=== PATIENT | male | born 1980 | race Caucasian/White ===

== ENCOUNTER 2021-06-30 03:18 | Inpatient (IN) | payer OTHER ==
[~2021-06-30] VITALS: Ht 180.3 cm; Wt 101.2 kg
[2021-06-30] VITALS (17 sets, daily range): BP systolic 86–143; BP diastolic 50–90
[2021-06-30] MEDS ORDERED: ACETYLCYSTEINE INJ 15 GM in IV DEXTROSE 5% 200 ML IV ONE (04:00)
[2021-06-30] MEDS ORDERED: IV NORMAL SALINE 1000ML BAG 1,000 ML IV SCH (04:00)
--- NOTE | 2021-06-30 04:15 | PHYS DOC ---
Past Medical History Past Surgical History: No Surgical History General Adult EDM: Chief Complaint: OVERDOSE HPI: HPI: Patient is a 40 year old male from correction presents to the ER after overdosing on Tylenol. Patient took approximately 420 tablets of Tylenol. Patient altered. Review of Systems: Review of Systems: Constitutional: Denies fever or chills. [] Eyes: Denies change in visual acuity. [] HENT: Denies nasal congestion or sore throat. [] Respiratory: Denies cough or shortness of breath. [] Cardiovascular: Denies chest pain or edema. [] GI: Denies abdominal pain, nausea, vomiting, bloody stools or diarrhea. [] : Denies dysuria. [] Musculoskeletal: Denies back pain or joint pain. [] Integument: Denies rash. [] Neurologic: Denies headache, focal weakness or sensory changes. [] Endocrine: Denies polyuria or polydipsia. [] Lymphatic: Denies swollen glands. [] Psychiatric: Suicide attempt denies depression or anxiety. [] Heart Score: C/O Chest Pain: No Risk Factors: Risk Factors: DM, Current or recent (<one month) smoker, HTN, HLP, family history of CAD, obesity. Risk Scores: Score 0 - 3: 2.5% MACE over next 6 weeks - Discharge Home Score 4 - 6: 20.3% MACE over next 6 weeks - Admit for Clinical Observation Score 7 - 10: 72.7% MACE over next 6 weeks - Early Invasive Strategies Current Medications: Current Medications Medications (Trade) Dose Ordered Sig/Danielito Start Time Stop Time Status Last Admin Dose Admin Acetylcysteine 15 gm/Dextrose 275 ml @ 200 mls/hr 1X ONCE 06/30/21 04:00 06/30/21 05:22 06/30/21 03:52 200 MLS/HR Etomidate (Amidate) 30 mg 1X ONCE 06/30/21 04:15 06/30/21 04:16 UNV Fentanyl Citrate (Fentanyl 2ml Vial) 100 mcg 1X ONCE 06/30/21 04:15 06/30/21 04:16 UNV Propofol (Diprivan) 200 mg 1X ONCE 06/30/21 04:15 06/30/21 04:16 UNV Rocuronium [place] (Zemuron) 100 mg 1X ONCE 06/30/21 04:15 06/30/21 04:16 UNV Sodium Chloride 1,000 ml @ 1,000 mls/hr Q1H 06/30/21 04:00 06/30/21 04:59 Allergies: Allergies: Allergies Coded Allergies Type Severity Reaction Last Updated Verified No Known Drug Allergies 06/30/21 No Physical Exam: PE: Constitutional: Well developed, well nourished, no acute distress, patient was lethargic HENT: Normocephalic, atraumatic, bilateral external ears normal, oropharynx moist, no oral exudates, nose normal. [] Eyes: PERRLA, EOMI, conjunctiva normal, no discharge. [] Neck: Normal range of motion, no tenderness, supple, no stridor. [] Cardiovascular:Heart rate regular rhythm, no murmur [] Lungs & Thorax: Bilateral breath sounds clear to auscultation [] Abdomen: Bowel sounds normal, soft, no tenderness, no masses, no pulsatile masses. [] Skin: Warm, dry, no erythema, no rash. [] Back: No tenderness, no CVA tenderness. [] Extremities: No tenderness, no cyanosis, no clubbing, ROM intact, no edema. [] Neurologic: Alert and oriented X 3, normal motor function, normal sensory function, no focal deficits noted. [] Psychologic: Affect normal, judgement normal, mood normal. [] Current Patient Data: Vital Signs: Vital Signs Date Time Temp Pulse Resp B/P (MAP) Pulse Ox O2 Delivery O2 Flow Rate FiO2 06/30/21 03:48 98.5 95 16 141/76 (97) 94 Room Air 98.5 EKG: EKG: [] Radiology/Procedures: Radiology/Procedures: [] Course & Med Decision Making: Course & Med Decision Making Pertinent Labs and Imaging studies reviewed. (See chart for details) [] Patient was interfering in his own care combative and noncompliant. Patient was placed on ventilator due to his critical condition. NAC was started due to the volume of Tylenol taken. Poison control on board Critical care time is 85-minute Luc Disclaimer: Luc Disclaimer: This electronic medical record was generated, in whole or in part, using a voice recognition dictation system. Intubation Procedure Intub Indication: Respiratory failure Consent: Unable to give consent due to emergent nature. Medications Used: see nursing note Procedure: The patient was placed in the appropriate position. Intubation was performed with a kaleidoscope] 8 0 endotracheal tube. 24 at the lip. Initial confirmation of placement included bilateral breath sounds, tube fogging, adequate chest rise, adequate pulse oximetry reading. A chest x-ray to verify correct placement of the tube showed appropriate tube position. The patient tolerated the procedure well. Complications: none. 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
[2021-06-30] MEDS ORDERED: ROCURONIUM 50 MG/5 ML VIAL. ONE (04:30)
[2021-06-30] MEDS ORDERED: fentaNYL PF VIAL 100 MCG/2 ML VIAL IVP ONE (04:30)
[2021-06-30] MEDS ORDERED: ROCURONIUM 50 MG/5 ML VIAL. IV ONE (04:30)
[2021-06-30] MEDS ORDERED: ETOMIDATE 20 MG/10 ML VIAL. IV ONE ×2 (04:30)
[2021-06-30] MEDS ORDERED: PROPOFOL 10 MG/ML (20ML) VIAL. IV ONE (04:30)
[2021-06-30] MEDS: PROPOFOL 100 ML IV PRN ×4 (04:52→22:17)
[2021-06-30 05:08] LABS: BASE EXCESS ABG -10 mmol/L (-3-3); HCO3 ABG 17 mmol/L (21-28); PCO2 ABG 39 mmHg (35-46); PO2 ABG 136 mmHg (75-108); SAT O2 ABG 98 % (92-99)
[2021-06-30 05:10] LABS: BARBITURATES NEG (NEG); BENZODIAZEPINES NEG (NEG); CANNABINOIDS NEG (NEG); COCAINE NEG (NEG); METHADONE NEG (NEG); OPIATES NEG (NEG); PHENCYCLIDINE NEG (NEG)
[2021-06-30 05:13] LABS: AMPHETAMINE/METHAMPHETAMINE POS (NEG)
[2021-06-30 05:20] LABS: PROTHROMBIN TIME PATIENT 17.3 SEC (11.7-14.0)
[2021-06-30 05:26] LABS: CALCIUM 7.6 mg/dL (8.5-10.1); CREATININE 1.5 mg/dL (0.7-1.3); GFR 51.3; POTASSIUM 3.9 mmol/L (3.5-5.1)
[2021-06-30 05:27] LABS: SALIC 1.2 mg/dL (2.8-20.0)
--- NOTE | 2021-06-30 05:27 | RAD ---
Study: XR CHEST 1V Indication: Tube placement. Comparison: None. Findings: Endotracheal tube tip is at the ayanna and is deviated towards the right mainstem bronchus. Enteric t ube extends into the stomach with the tip and sidehole not included in the [id number]. No confluent infiltrate, pleural effusion or pneumothorax. The cardiomediastinal silhouette is within normal limits for size. Impression: 1. Endotracheal tube tip is at the ayanna. Retraction is recommended by a few centimeters. 2. Enteric tube extension into the stomach. 3. No acute radiographic abnormality of the chest. Electronically signed by: KAYODE JONES MD (06/30/2021 5:24 AM) [facility]
[2021-06-30 05:30] LABS: BACTERIA,URINE 0 /HPF (0-FEW); RBC,URINE 0 /HPF (0-2)
[2021-06-30] MEDS ORDERED: ACETYLCYSTEINE INJ 10 GM in IV DEXTROSE 5% 1,000 ML IV ONE (05:30)
[2021-06-30 05:32] LABS: ALBUMIN 3.4 g/dL (3.4-5.0); DIRECT BILIRUBIN 0.1 mg/dL (0.0-0.2); TOTAL BILIRUBIN 0.3 mg/dL (0.2-1.0); TOTAL PROTEIN 6.4 g/dL (6.4-8.2)
[2021-06-30 05:56] LABS: ETHANOL < 10 mg/dL (0-10)
[2021-06-30] MEDS ORDERED: SODIUM BICARB ADULT 8.4% 50 MEQ/50 ML DISP.SYRIN. IV ONE ×3 (06:00→09:45)
[2021-06-30 06:13] LABS: FIO2 ABG 50
[2021-06-30 08:24] LABS: BASE EXCESS COOX -14 mmol/L (-3-3); HCO3 COOX 13 mmol/L (21-28); OXYHEMOGLOBIN 97.6 %; PCO2 COOX 32 mmHg (35-46); PO2 COOX 161 mmHg (75-108); SAT O2 COOX 99 % (92-99)
--- NOTE | 2021-06-30 09:00 | PDOC1 ---
History and Physical Date of Admission Date of Admission DATE: 06/30/21 TIME: 08:22 Identification/Chief Complaint Chief Complaint Overdose Source Source: Patient History of Present Illness History of Present Illness Mr Alarcon is a 40yo male w/ PMHx chronic osteoarthritis pain, seizure, borderline personality disorder who is an inmate brought from retirement for u nresponsiveness and concern for overdose. History obtained from ED paperwork and from [place] [employer] officers. He was found on morning wellness check this morning prior to 0400 laying in a pile of vomit with suspicion patient had taken #420 of 325 mg of acetaminophen. He has been incarcerated since 2005 per corrections officers. Labs at 0449 NA 142, K3 point delayed, BUN 14 CR 1.5, anion gap 22, glucose 243, lactic acid 5.3, calcium 7.6, bilirubin 0.3, AST 23, ALT 45, alkaline phosphatas e 52, albumin 3.4, acetaminophen level 383.8, salicylates 1.2, urine drug screen positive for amphetamines, urinalysis bland with glucosuria and ketonuria. Patient was notably somnolent, drooling with brown emesis, confused in ED, barley answering to his name, and was assessed as not protecting his airway ED physician elected to intubate patient. Chest radiograph with ET tube near ayanna gastric tube overlying gastric bubble below the diaphragm. No other abnormalities on anahy unable to obtain due to his sedated on ventilator st radiograph on my interpretation. Tylenol overdose ABG 7.245/38.9/136.4 Repeat ABG 7.221/31.5/161 on AC mode 40 breaths/min per tidal volume 450 PEEP of 5 FiO2 40% Past Medical History Cardiovascular: No pertinent hx Past Surgical History Past Surgical History: No pertinent history Family History Family History reviewed with [employer] officers Family History: Family History Unknown Social History Smoke: No ALCOHOL: none Drugs: None Current Problem List Problem List Problems Medical Problems: (1) Acetaminophen overdose Status: Acute Current Medications Current Medications Current Medications Acetylcysteine 15 gm/Dextrose 275 ml @ 200 mls/hr 1X ONCE IV Last administered on 06/30/21at 03:52; Start 06/30/21 at 04:00; Stop 06/30/21 at 05:22; Status DC Sodium Chloride 1,000 ml @ 1,000 mls/hr Q1H IV ; Start 06/30/21 at 04:00; Stop 06/30/21 at 04:59; Status DC Rocuronium [place] (Zemuron) 100 mg 1X ONCE IV ; Start 06/30/21 at 04:30; Stop 06/30/21 at 04:31; Status DC Etomidate (Amidate) 30 mg 1X ONCE IV ; Start 06/30/21 at 04:30; Stop 06/30/21 at 04:31; Status DC Propofol (Diprivan) 200 mg 1X ONCE IV ; Start 06/30/21 at 04:30; Stop 06/30/21 at 04:31; Status DC Fentanyl Citrate (Fentanyl 2ml Vial) 100 mcg 1X ONCE IVP ; Start 06/30/21 at 04:30; Stop 06/30/21 at 04:31; Status DC Propofol 100 ml @ 3.135 mls/ hr CONT PRN IV PER PROTOCOL Last administered on 06/30/21at 04:52; Start 06/30/21 at 04:30 Acetylcysteine 10 gm/Dextrose 1,050 ml @ 65.625 mls/ hr 1X ONCE IV Last administered on 06/30/21at 05:22; Start 06/30/21 at 05:30; Stop 06/30/21 at 21:29 Sodium Bicarbonate (Sodium Bicarb Adult 8.4% Syr) 50 meq 1X ONCE IV ; Start 06/30/21 at 06:00; Stop 06/30/21 at 06:01; Status DC Allergies Allergies: Coded Allergies: No Known Drug Allergies (Unverified , 06/30/21) ROS Review of System Unable to obtain complete ROS due to sedated on ventilator Physical Exam General: Other (Sedated on ventilator) HEENT: Atraumatic, EOMI, Mucous membr. moist/pink, Other (ET and OG tube in place. Pupils pinpoint) Lungs: Other (Ventilatory breath sounds) Heart: S1S2, RRR, no thrills, no rubs, no gallops, no murmurs Abdomen: Normal bowel sounds, Soft, No tenderness, No hepatosplenomegaly, No masses Extremities: No clubbing, No cyanosis, No edema, Normal pulses, No tenderness/swelling Skin: No rashes, No breakdown, No significant lesion Neuro: Reflexes 2+ Psych/Mental Status: Other (Unresponsive) Vitals Vitals Vital Signs Date Time Temp Pulse Resp B/P (MAP) Pulse Ox O2 Delivery O2 Flow Rate FiO2 06/30/21 08:18 99 Ventilator 06/30/21 07:06 88 06/30/21 06:06 16 06/30/21 04:51 98.4 98.4 06/30/21 03:48 141/76 (97) Labs Labs Laboratory Tests Test 06/30/21 04:49 06/30/21 04:55 06/30/21 05:06 Prothrombin Time 17.3 SEC (11.7-14.0) Prothromb Time International Ratio 1.5 (0.8-1.1) Activated Partial Thromboplast Time 25 SEC (24-38) Sodium Level 142 mmol/L (136-145) Potassium Level 3.9 mmol/L (3.5-5.1) Chloride Level 101 mmol/L (98-107) Carbon Dioxide Level 19 mmol/L (21-32) Anion Gap 22 (6-14) Blood Urea Nitrogen 14 mg/dL (8-26) Creatinine 1.5 mg/dL (0.7-1.3) Estimated GFR (Cockcroft-Gault) 51.3 Glucose Level 243 mg/dL (70-99) Lactic Acid Level 5.3 mmol/L (0.4-2.0) Calcium Level 7.6 mg/dL (8.5-10.1) Total Bilirubin 0.3 mg/dL (0.2-1.0) Direct Bilirubin 0.1 mg/dL (0.0-0.2) Aspartate Amino Transf (AST/SGOT) 23 U/L (15-37) Alanine Aminotransferase (ALT/SGPT) 45 U/L (16-63) Alkaline Phosphatase 52 U/L (46-116) Total Protein 6.4 g/dL (6.4-8.2) Albumin 3.4 g/dL (3.4-5.0) Salicylates Level 1.2 mg/dL (2.8-20.0) Salicylate Last Dose Date Unknown Salicylate Last Dose Time Unknown Acetaminophen Level 383.80 mcg/ml (10-30) Acetaminophen Last Dose Date Unknown Acetaminophen Last Dose Time Unknown Ethyl Alcohol Level < 10 mg/dL (0-10) Urine Collection Type Unknown Urine Color (Auto) Colorless Urine Turbidity Clear Urine pH (Auto) 5.5 (<5.0-8.0) Urine Specific [place] 1.015 (1.000-1.030) Urine Protein (Auto) Negative mg/dL (Negative) Urine Glucose (Auto)(UA) 200 mg/dL (Negative) Urine Ketones (Auto) >150 mg/dL (Negative) Urine Blood (Auto) Negative (Negative) Urine Nitrite (Auto) Negative (Negative) Urine Bilirubin (Auto) Negative (Negative) Urine Urobilinogen (Auto) Normal mg/dL (Normal) Urine Leukocyte Esterase (Auto) Negative (Negative) Urine RBC 0 /HPF (0-2) Urine WBC 1-4 /HPF (0-4) Urine Squamous Epithelial Cells Mod /LPF Urine Renal Epithelial Cells Occ /LPF Urine Bacteria 0 /HPF (0-FEW) Urine Mucus Slight /LPF Urine Opiates Screen Neg (NEG) Urine Methadone Screen Neg (NEG) Urine Barbiturates Neg (NEG) Urine Phencyclidine Screen Neg (NEG) Urine Amphetamine/Methamphetamine Pos (NEG) Urine Benzodiazepines Screen Neg (NEG) Urine Cocaine Screen Neg (NEG) Urine Cannabinoids Screen Neg (NEG) Urine Ethyl Alcohol Neg (NEG) O2 Saturation 98 % (92-99) Arterial Blood pH 7.25 (7.35-7.45) Arterial Blood pCO2 at Patient Temp 39 mmHg (35-46) Arterial Blood pO2 at Patient Temp 136 mmHg (75-108) Arterial Blood HCO3 17 mmol/L (21-28) Arterial Blood Base Excess -10 mmol/L (-3-3) FiO2 50 Laboratory Tests Test 06/30/21 04:49 06/30/21 04:55 06/30/21 05:06 Prothrombin Time 17.3 SEC (11.7-14.0) Prothromb Time International Ratio 1.5 (0.8-1.1) Activated Partial Thromboplast Time 25 SEC (24-38) Sodium Level 142 mmol/L (136-145) Potassium Level 3.9 mmol/L (3.5-5.1) Chloride Level 101 mmol/L (98-107) Carbon Dioxide Level 19 mmol/L (21-32) Anion Gap 22 (6-14) Blood Urea Nitrogen 14 mg/dL (8-26) Creatinine 1.5 mg/dL (0.7-1.3) Estimated GFR (Cockcroft-Gault) 51.3 Glucose Level 243 mg/dL (70-99) Lactic Acid Level 5.3 mmol/L (0.4-2.0) Calcium Level 7.6 mg/dL (8.5-10.1) Total Bilirubin 0.3 mg/dL (0.2-1.0) Direct Bilirubin 0.1 mg/dL (0.0-0.2) Aspartate Amino Transf (AST/SGOT) 23 U/L (15-37) Alanine Aminotransferase (ALT/SGPT) 45 U/L (16-63) Alkaline Phosphatase 52 U/L (46-116) Total Protein 6.4 g/dL (6.4-8.2) Albumin 3.4 g/dL (3.4-5.0) Salicylates Level 1.2 mg/dL (2.8-20.0) Salicylate Last Dose Date Unknown Salicylate Last Dose Time Unknown Acetaminophen Level 383.80 mcg/ml (10-30) Acetaminophen Last Dose Date Unknown Acetaminophen Last Dose Time Unknown Ethyl Alcohol Level < 10 mg/dL (0-10) Urine Collection Type Unknown Urine Color (Auto) Colorless Urine Turbidity Clear Urine pH (Auto) 5.5 (<5.0-8.0) Urine Specific [place] 1.015 (1.000-1.030) Urine Protein (Auto) Negative mg/dL (Negative) Urine Glucose (Auto)(UA) 200 mg/dL (Negative) Urine Ketones (Auto) >150 mg/dL (Negative) Urine Blood (Auto) Negative (Negative) Urine Nitrite (Auto) Negative (Negative) Urine Bilirubin (Auto) Negative (Negative) Urine Urobilinogen (Auto) Normal mg/dL (Normal) Urine Leukocyte Esterase (Auto) Negative (Negative) Urine RBC 0 /HPF (0-2) Urine WBC 1-4 /HPF (0-4) Urine Squamous Epithelial Cells Mod /LPF Urine Renal Epithelial Cells Occ /LPF Urine Bacteria 0 /HPF (0-FEW) Urine Mucus Slight /LPF Urine Opiates Screen Neg (NEG) Urine Methadone Screen Neg (NEG) Urine Barbiturates Neg (NEG) Urine Phencyclidine Screen Neg (NEG) Urine Amphetamine/Methamphetamine Pos (NEG) Urine Benzodiazepines Screen Neg (NEG) Urine Cocaine Screen Neg (NEG) Urine Cannabinoids Screen Neg (NEG) Urine Ethyl Alcohol Neg (NEG) O2 Saturation 98 % (92-99) Arterial Blood pH 7.25 (7.35-7.45) Arterial Blood pCO2 at Patient Temp 39 mmHg (35-46) Arterial Blood pO2 at Patient Temp 136 mmHg (75-108) Arterial Blood HCO3 17 mmol/L (21-28) Arterial Blood Base Excess -10 mmol/L (-3-3) FiO2 50 Images Images Chest radiograph: Endotracheal tube tip is at the ayanna and is deviated towards the right mainstem bronchus. Enteric tube extends into the stomach with the tip and si dehole not included in the [id number]. No confluent infiltrate, pleural effusion or pneumothorax. The cardiomediastinal silhouette is within normal limits for size. Impression: 1. Endotracheal tube tip is at the ayanna. Retraction is recommended by a few centimeters. 2. Enteric tube extension into the stomach. 3. No acute radiographic abnormality of the chest. VTE Prophylaxis Ordered VTE Prophylaxis Devices: No VTE Pharmacological Prophylaxi: Yes Assessment/Plan Assessment/Plan Acute encephalopathy - metabolic, likely due to medication overdose, possibly also with amphetamine toxicity Acetaminophen overdose -unclear if intentional or not. On N-acetylcysteine 2 bag protocol (200 mg/kg mag 1 and 6.25 mg/kg hourly for 16 hours) given within 8 hours will trend every 4 to 6 hours labs. Poison control recommends addition of fomepizole as well Metabolic acidosis - likely lactic acid related with some acute acetaminophen poisoning, will trend. Bicarb per ED and pulmonology Chronic osteoarthritis pain -if acetaminophen negative and ibuprofen are given to the future would recommend to dose pill packs daily. Seizures - per retirement, resolved TRISTIN - no renal dysfunction, likely vasomotor nephropathy Lactic acidosis - likely related to acetaminophen OD, will trend Amphetamine positive - unclear if intoxicated Borderline personality disorder -not on meds Hyperglycemia - check A1c, no DM history FEN - NPO, OGT PPX - heparin FULL CODE Dispo - ICU cc time 37 min Justifications for Admission Other Justification PILAR CONWAY MD Jun 30, 2021 09:00
--- NOTE | 2021-06-30 09:39 | PDOC2 ---
GI CONSULT Date of Service: DATE: 06/30/21 TIME: 09:39 Reason For Consult: acetaminophen overdose HPI: HPI: 40 y/o inmate brought to ER found this morning in pile of emesis - concern he had taken 420 acetaminophen pills. Confused in ER - now intubated and sedated. Acetaminophen level 383, normal LFT, INR 1.5. Started on Mucomyst, also fomepizole. PMH: PMH: per chart: chronic osteoarthritis pain, seizure, borderline personality disorder FH: Family History: Other (unable to obtain) Social History: Drugs: Crystal meth (tox screen +amphetamines) ROS: unable to obtain Vitals: Vitals: Vital Signs Date Time Temp Pulse Resp B/P (MAP) Pulse Ox O2 Delivery O2 Flow Rate FiO2 06/30/21 09:00 83 20 100/50 (67) Ventilator 06/30/21 08:59 99 06/30/21 07:40 94.7 94.7 Labs: Labs: Laboratory Tests Test 06/30/21 04:49 06/30/21 04:55 06/30/21 05:06 06/30/21 08:23 Prothrombin Time 17.3 SEC (11.7-14.0) Prothromb Time International Ratio 1.5 (0.8-1.1) Activated Partial Thromboplast Time 25 SEC (24-38) Sodium Level 142 mmol/L (136-145) Potassium Level 3.9 mmol/L (3.5-5.1) Chloride Level 101 mmol/L (98-107) Carbon Dioxide Level 19 mmol/L (21-32) Anion Gap 22 (6-14) Blood Urea Nitrogen 14 mg/dL (8-26) Creatinine 1.5 mg/dL (0.7-1.3) Estimated GFR (Cockcroft-Gault) 51.3 Glucose Level 243 mg/dL (70-99) Lactic Acid Level 5.3 mmol/L (0.4-2.0) Calcium Level 7.6 mg/dL (8.5-10.1) Total Bilirubin 0.3 mg/dL (0.2-1.0) Direct Bilirubin 0.1 mg/dL (0.0-0.2) Aspartate Amino Transf (AST/SGOT) 23 U/L (15-37) Alanine Aminotransferase (ALT/SGPT) 45 U/L (16-63) Alkaline Phosphatase 52 U/L (46-116) Total Protein 6.4 g/dL (6.4-8.2) Albumin 3.4 g/dL (3.4-5.0) Salicylates Level 1.2 mg/dL (2.8-20.0) Salicylate Last Dose Date Unknown Salicylate Last Dose Time Unknown Acetaminophen Level 383.80 mcg/ml (10-30) Acetaminophen Last Dose Date Unknown Acetaminophen Last Dose Time Unknown Ethyl Alcohol Level < 10 mg/dL (0-10) Urine Collection Type Unknown Urine Color (Auto) Colorless Urine Turbidity Clear Urine pH (Auto) 5.5 (<5.0-8.0) Urine Specific [place] 1.015 (1.000-1.030) Urine Protein (Auto) Negative mg/dL (Negative) Urine Glucose (Auto)(UA) 200 mg/dL (Negative) Urine Ketones (Auto) >150 mg/dL (Negative) Urine Blood (Auto) Negative (Negative) Urine Nitrite (Auto) Negative (Negative) Urine Bilirubin (Auto) Negative (Negative) Urine Urobilinogen (Auto) Normal mg/dL (Normal) Urine Leukocyte Esterase (Auto) Negative (Negative) Urine RBC 0 /HPF (0-2) Urine WBC 1-4 /HPF (0-4) Urine Squamous Epithelial Cells Mod /LPF Urine Renal Epithelial Cells Occ /LPF Urine Bacteria 0 /HPF (0-FEW) Urine Mucus Slight /LPF Urine Opiates Screen Neg (NEG) Urine Methadone Screen Neg (NEG) Urine Barbiturates Neg (NEG) Urine Phencyclidine Screen Neg (NEG) Urine Amphetamine/Methamphetamine Pos (NEG) Urine Benzodiazepines Screen Neg (NEG) Urine Cocaine Screen Neg (NEG) Urine Cannabinoids Screen Neg (NEG) Urine Ethyl Alcohol Neg (NEG) O2 Saturation 98 % (92-99) 99 % (92-99) Arterial Blood pH 7.25 (7.35-7.45) 7.22 (7.35-7.45) Arterial Blood pCO2 at Patient Temp 39 mmHg (35-46) 32 mmHg (35-46) Arterial Blood pO2 at Patient Temp 136 mmHg (75-108) 161 mmHg (75-108) Arterial Blood HCO3 17 mmol/L (21-28) 13 mmol/L (21-28) Arterial Blood Base Excess -10 mmol/L (-3-3) -14 mmol/L (-3-3) FiO2 50 40% vent Oxyhemoglobin 97.6 % Methemoglobin 1.0 % (0.0-1.9) Carbon Monoxide, Quantitative 0.3 % (0.0-1.9) Allergies: Coded Allergies: No Known Drug Allergies (Unverified , 06/30/21) Medications: Current Medications Medications (Trade) Dose Ordered Sig/Danielito Route PRN Reason Start Time Stop Time Status Last Admin Dose Admin Acetylcysteine 15 gm/Dextrose 275 ml @ 200 mls/hr 1X ONCE IV 06/30/21 04:00 06/30/21 05:22 DC 06/30/21 03:52 Propofol 100 ml @ 3.135 mls/ hr CONT PRN IV PER PROTOCOL 06/30/21 04:30 06/30/21 04:52 Acetylcysteine 10 gm/Dextrose 1,050 ml @ 65.625 mls/ hr 1X ONCE IV 06/30/21 05:30 06/30/21 21:29 06/30/21 05:22 Imaging: Imaging: CXR 06/30 Impression: 1. Endotracheal tube tip is at the ayanna. Retraction is recommended by a few centimeters. 2. Enteric tube extension into the stomach. 3. No acute radiographic abnormality of the chest. PE: GEN: intubated, guard present HEENT: Atraumatic, PERRL LUNGS: clear/vent HEART: RRR ABD: quiet BS, soft, non-distended EXTREMITY: No edema SKIN: No rashes, no jaundice NEURO/PSYCH: sedated A/P: A/P: Acetaminophen overdose Psych history -- Pt seen this morning w/ Dr. Bolden - agree w/ acetylcysteine, follow LFTs and INR. ERIN VAN Jun 30, 2021 09:39
[2021-06-30] MEDS ORDERED: FOMEPIZOLE IV ONE (10:00)
[2021-06-30] MEDS ORDERED: NORMAL SALINE IV ONE (10:00)
--- NOTE | 2021-06-30 11:18 | CONS ---
DATE OF CONSULTATION: 06/30/2021 PULMONARY CONSULTATION ATTENDING PHYSICIAN: Dr. Finley. REASON FOR CONSULTATION: Respiratory failure. Tylenol overdose. HISTORY OF PRESENT ILLNESS: The patient is a 40-year-old male who has a history of chronic osteoarthritis, seizure and history of borderline personality disorder. He is an inmate at the [facility]. The patient was brought into the hospital after he was noted to have taken 11 packets of 325 mg Tylenol and each pocket containing 5 tablets. The patient was started to have emesis. He was taken to the Emergency Room. He was somnolent. He had drooling with brown emesis. He was confused. He was barely answering to his name. He was then very agitated and was thought to intubate him to protect his airway. The patient's chest x-ray reviewed. No definite infiltrate seen. His endotracheal tube was at the opening of the right main stem bronchus. His arterial blood gases were reviewed. Latest showed a pH of 7.22, pCO2 of 32 and a pO2 of 161 with bicarbonate of 13. His Tylenol level was 383.8. He was started on N-acetylcysteine and protocol is being followed. He was also positive for meth as well. The patient's liver function test on admission were within normal limits. Lactic acid was 5.3. He is currently intubated and sedated. I have been asked to see him for further evaluation. PAST MEDICAL HISTORY: Significant for borderline personality disorder, osteoarthritis, seizure. PAST SURGICAL HISTORY: None. ALLERGIES: None. MEDICATIONS: Reviewed as listed in the [facility] including fomepizole and N-acetylcysteine. REVIEW OF SYSTEMS: Unable to obtain as he is on the ventilator. SOCIAL HISTORY: He is an inmate. PHYSICAL EXAMINATION: VITAL SIGNS: Reviewed. Blood pressure 106 systolic. Pulse ox 99. He was hypothermic on arrival, now 94.7 core temperature. NECK: Supple. LUNGS: Clear breath sounds. CARDIOVASCULAR: With a regular rate. ABDOMEN: Soft. EXTREMITIES: With no pitting edema. LABORATORY DATA: Reviewed. INR 1.5. Urine drug screen as discussed above. BUN is 14, creatinine 1.5. Lactic acid 5.3. IMPRESSION: 1. Acute respiratory failure secondary to acetaminophen overdose. He was also positive for meth. 2. Acute toxic encephalopathy. 3. Metabolic acidosis related to acetaminophen overdose. 4. Needs to closely follow up liver function tests, rule out hepatic failure. 5. Acute kidney injury. 6. Lactic acidosis. 7. Mildly increased INR of 1.5. Needs to watch for any worsening coagulopathy related to acetaminophen overdose. 8. Abnormal chest x-ray with endotracheal tube at the opening of the right main stem bronchus. I would recommend to pull back 3 cm. RECOMMENDATIONS: 1. Discussed with RN and RT. We will continue with present assist control mode. 2. Two amps of bicarbonate have been ordered. 3. Monitor liver function test and bicarbonate level closely. 4. Monitor INR and rule out any worsening coagulopathy. 5. Continue N-acetylcysteine per protocol. 6. Follow levels. 7. Fomepizole. 8. SCDs for DVT prophylaxis due to INR being already elevated. 9. Followup lactic acid level. 10. Discussed with RN. Discussed with Dr. Finley. Chart reviewed, imaging studies reviewed. Total critical care time [address]: Cate TID: [id number]
[2021-06-30 13:11] LABS: ALBUMIN 3.5 g/dL (3.4-5.0); ALBUMIN/GLOBULIN RATIO 1.2 (1.0-1.7); CALCIUM 8.2 mg/dL (8.5-10.1); CREATININE 1.7 mg/dL (0.7-1.3); GFR 44.4; POTASSIUM 4.3 mmol/L (3.5-5.1); TOTAL BILIRUBIN 0.7 mg/dL (0.2-1.0); TOTAL PROTEIN 6.4 g/dL (6.4-8.2)
[2021-06-30 13:14] LABS: ACETAMIN 249.73 mcg/ml (10-30)
--- NOTE | 2021-06-30 14:52 | NUR ---
Etomidate 30mg and Rocuronium 100mg given in ER for intubation were charged to patient by pharmacy.
[2021-06-30] MEDS: ACETYLCYSTEINE IV SCH (17:44)
[2021-06-30] MEDS: DEXTROSE 5% IV SCH (17:44)
[2021-06-30 18:32] LABS: ALBUMIN 3.6 g/dL (3.4-5.0); ALBUMIN/GLOBULIN RATIO 1.2 (1.0-1.7); CALCIUM 8.2 mg/dL (8.5-10.1); CREATININE 2.1 mg/dL (0.7-1.3); GFR 34.8; POTASSIUM 4.3 mmol/L (3.5-5.1); TOTAL BILIRUBIN 0.6 mg/dL (0.2-1.0); TOTAL PROTEIN 6.7 g/dL (6.4-8.2)
[2021-06-30 18:55] LABS: ACETAMIN 180.74 mcg/ml (10-30)
[2021-06-30] MEDS: NORMAL SALINE IV SCH (22:17)
[2021-06-30] MEDS: FOMEPIZOLE IV SCH (22:17)
[2021-07-01] VITALS (23 sets, daily range): BP systolic 111–164; BP diastolic 68–94
[2021-07-01 00:35] LABS: ALBUMIN 3.7 g/dL (3.4-5.0); ALBUMIN/GLOBULIN RATIO 1.1 (1.0-1.7); CREATININE 3.1 mg/dL (0.7-1.3); GFR 22.2; TOTAL BILIRUBIN 0.4 mg/dL (0.2-1.0); TOTAL PROTEIN 7.2 g/dL (6.4-8.2)
[2021-07-01 00:36] LABS: ACETAMIN 104.2 mcg/ml (10-30)
[2021-07-01] MEDS: PROPOFOL 100 ML IV PRN ×5 (01:48→21:05)
[2021-07-01] MEDS: DEXTROSE 5% IV SCH ×2 (03:50→14:38)
[2021-07-01] MEDS: ACETYLCYSTEINE IV SCH ×2 (03:50→14:38)
[2021-07-01 04:11] LABS: HEMOGLOBIN A1C 5.5 % (4.8-5.6)
--- NOTE | 2021-07-01 07:12 | PDOC ---
[employer] PROGRESS NOTE Date of Service DOS: DATE: 07/01/21 TIME: 07:09 Chief Complaint Chief Complaint Acute encephalopathy - metabolic, likely due to medication overdose, possibly also with amphetamine toxicity Acetaminophen overdose -unclear if intentional or not. On N-acetylcysteine 2 bag protocol (200 mg/kg mag 1 and 6.25 mg/kg hourly for 16 hours) given within 8 hours will trend every 4 to 6 hours labs. Poison control recommended addition of fomepizole as well, given x1 Metabolic acidosis - likely lactic acid related with some acute acetaminophen poisoning, will trend. Bicarb per ED and pulmonology Chronic osteoarthritis pain -if acetaminophen negative and ibuprofen are given to the future would recommend to dose pill packs daily. Seizures - per [facility], resolved TRISTIN - no renal dysfunction, likely vasomotor nephropathy. Will obtain non- contrast abdominal imaging to r/o obstructive uropathy vs medical renal disease Lactic acidosis - likely related to acetaminophen OD, will trend Amphetamine positive - unclear if intoxicated Borderline personality disorder -not on meds Hyperglycemia - A1c 5.5, no DM history FEN - NPO, OGT PPX - heparin FULL CODE Dispo - ICU cc time 33 min History of Present Illness History of Present Illness Mr Alarcon is a 40yo male w/ PMHx chronic osteoarthritis pain, seizure, borderline personality disorder who is an [facility]responsiveness and concern for overdose. History obtained from ED paperwork and from [place] [employer] officers. He was found on morning wellness check this morning prior to 0400 laying in a pile of vomit with suspicion patient had taken #420 of 325 mg of acetaminophen. He has been incarcerated since 2005 per corrections officers. Labs at 0449 NA 142, K3 point delayed, BUN 14 CR 1.5, anion gap 22, glucose 243, lactic acid 5.3, calcium 7.6, bilirubin 0.3, AST 23, ALT 45, alkaline phosphatase 52, albumin 3.4, acetaminophen level 383.8, salicylates 1.2, urine drug screen positive for amphetamines, urinalysis bland with glucosuria and ketonuria. Patient was notably somnolent, drooling with brown emesis, confused in ED, barley answering to his name, and was assessed as not protecting his airway ED physician elected to intubate patient. Chest radiograph with ET tube near ayanna gastric tube overlying gastric bubble below the diaphragm. No other abnormalities on CXR on my interpretation. Initial ABG 7.245/38.9/136.4 Repeat ABG 7.221/31.5/161 on AC mode 40 breaths/min per tidal volume 450 PEEP of 5 FiO2 40% 07/01: Seen on vent AC mode PEEP 5 FiO2 40%, ABG pH 7.29 this morning. Creatinine climbing to 3.5, urine output 5.7 L last 24 hours. ALT 85 now, INR 1.5. Acetaminophen level 50. CBC pending, CT abdomen/pelvis ordered. started on free water. Vitals/I&O Vitals/I&O: Vital Signs Date Time Temp Pulse Resp B/P (MAP) Pulse Ox O2 Delivery O2 Flow Rate FiO2 07/01/21 06:00 106 20 164/94 (117) 100 Ventilator 07/01/21 04:00 100.6 100.6 I & O 06/30/21 06/30/21 07/01/21 15:00 23:00 07:00 Intake Total 100 ml 1300 ml 1600 ml Output Total 2900 ml 1185 ml 1640 ml Balance -2800 ml 115 ml -40 ml Physical Exam General: Other (Sedated on ventilator) Abdomen: Normal bowel sounds, Soft, No tenderness, No hepatosplenomegaly, No masses Extremities: No clubbing, No cyanosis, No edema, Normal pulses, No tenderness/swelling Skin: No rashes, No breakdown, No significant lesion Labs Labs: Laboratory Tests Test 06/30/21 08:23 06/30/21 09:50 06/30/21 12:15 06/30/21 17:56 O2 Saturation 99 % (92-99) Arterial Blood pH 7.22 (7.35-7.45) Arterial Blood pCO2 at Patient Temp 32 mmHg (35-46) Arterial Blood pO2 at Patient Temp 161 mmHg (75-108) Arterial Blood HCO3 13 mmol/L (21-28) Arterial Blood Base Excess -14 mmol/L (-3-3) Oxyhemoglobin 97.6 % Methemoglobin 1.0 % (0.0-1.9) Carbon Monoxide, Quantitative 0.3 % (0.0-1.9) FiO2 40% vent Hemoglobin A1c 5.5 % (4.8-5.6) Lactic Acid Level 2.6 mmol/L (0.4-2.0) Sodium Level 143 mmol/L (136-145) 141 mmol/L (136-145) Potassium Level 4.3 mmol/L (3.5-5.1) 4.3 mmol/L (3.5-5.1) Chloride Level 105 mmol/L (98-107) 102 mmol/L (98-107) Carbon Dioxide Level 23 mmol/L (21-32) 20 mmol/L (21-32) Anion Gap 15 (6-14) 19 (6-14) Blood Urea Nitrogen 17 mg/dL (8-26) 19 mg/dL (8-26) Creatinine 1.7 mg/dL (0.7-1.3) 2.1 mg/dL (0.7-1.3) Estimated GFR (Cockcroft-Gault) 44.4 34.8 BUN/Creatinine Ratio 10 (6-20) 9 (6-20) Glucose Level 113 mg/dL (70-99) 121 mg/dL (70-99) Calcium Level 8.2 mg/dL (8.5-10.1) 8.2 mg/dL (8.5-10.1) Total Bilirubin 0.7 mg/dL (0.2-1.0) 0.6 mg/dL (0.2-1.0) Aspartate Amino Transf (AST/SGOT) 29 U/L (15-37) 32 U/L (15-37) Alanine Aminotransferase (ALT/SGPT) 59 U/L (16-63) 74 U/L (16-63) Alkaline Phosphatase 53 U/L (46-116) 58 U/L (46-116) Total Protein 6.4 g/dL (6.4-8.2) 6.7 g/dL (6.4-8.2) Albumin 3.5 g/dL (3.4-5.0) 3.6 g/dL (3.4-5.0) Albumin/Globulin Ratio 1.2 (1.0-1.7) 1.2 (1.0-1.7) Acetaminophen Level 249.73 mcg/ml (10-30) 180.74 mcg/ml (10-30) Acetaminophen Last Dose Date 06/30/21 Unknown Acetaminophen Last Dose Time 0400 Unknown Test 07/01/21 00:01 Sodium Level 138 mmol/L (136-145) Potassium Level 4.0 mmol/L (3.5-5.1) Chloride Level 98 mmol/L (98-107) Carbon Dioxide Level 21 mmol/L (21-32) Anion Gap 19 (6-14) Blood Urea Nitrogen 24 mg/dL (8-26) Creatinine 3.1 mg/dL (0.7-1.3) Estimated GFR (Cockcroft-Gault) 22.2 BUN/Creatinine Ratio 8 (6-20) Glucose Level 148 mg/dL (70-99) Calcium Level 8.0 mg/dL (8.5-10.1) Total Bilirubin 0.4 mg/dL (0.2-1.0) Aspartate Amino Transf (AST/SGOT) 34 U/L (15-37) Alanine Aminotransferase (ALT/SGPT) 75 U/L (16-63) Alkaline Phosphatase 55 U/L (46-116) Total Protein 7.2 g/dL (6.4-8.2) Albumin 3.7 g/dL (3.4-5.0) Albumin/Globulin Ratio 1.1 (1.0-1.7) Acetaminophen Level 104.2 mcg/ml (10-30) Acetaminophen Last Dose Date Unk Acetaminophen Last Dose Time Unk Assessment and Plan Assessmemt and Plan Problems Medical Problems: (1) Acetaminophen overdose Status: Acute Comment Review of Relevant I have reviewed the following items cherelle (where applicable) has been applied. Medications: Current Medications Medications (Trade) Dose Ordered Sig/Danielito Route PRN Reason Start Time Stop Time Status Last Admin Dose Admin Fomepizole 1.5 gm/ Sodium Chloride 101.5 ml @ 203 mls/hr 1X ONCE IV 06/30/21 10:00 06/30/21 10:29 DC 06/30/21 09:44 Sodium Bicarbonate (Sodium Bicarb Adult 8.4% Syr) 50 meq 1X ONCE IV 06/30/21 09:45 06/30/21 09:46 DC 06/30/21 09:44 Acetylcysteine 12 gm/Dextrose 1,060 ml @ 110 mls/hr Q10H IV 06/30/21 16:00 07/01/21 03:50 Fomepizole 1 gm/ Sodium Chloride 101 ml @ 202 mls/hr Q12HR IV 06/30/21 22:00 07/02/21 09:29 4/27/22 22:17 Justifications for Admission Other Justification PILAR CONWAY MD Jul 01, 2021 07:12
[2021-07-01] MEDS ORDERED: POLYVINYL ALCOHOL 1.4% OPHTH SOLUTION 15ML BOTTLE. OU PRN (07:15)
[2021-07-01 07:19] LABS: ALBUMIN 3.6 g/dL (3.4-5.0); ALBUMIN/GLOBULIN RATIO 1.1 (1.0-1.7); CALCIUM 7.9 mg/dL (8.5-10.1); CREATININE 3.5 mg/dL (0.7-1.3); GFR 19.3; POTASSIUM 4.1 mmol/L (3.5-5.1); TOTAL BILIRUBIN 0.4 mg/dL (0.2-1.0)
[2021-07-01 07:20] LABS: ACETAMIN 50.39 mcg/ml (10-30)
[2021-07-01 07:35] LABS: BASE EXCESS ABG -8 mmol/L (-3-3); HCO3 ABG 17 mmol/L (21-28); PCO2 ABG 37 mmHg (35-46); PO2 ABG 169 mmHg (75-108); SAT O2 ABG 99 % (92-99)
[2021-07-01 07:36] LABS: FIO2 ABG 40% vent
[2021-07-01] MEDS: SODIUM BICARBONATE VIAL 50 MEQ in IV DEXTROSE 5% 1,000 ML IV SCH ×2 (08:23→17:21)
[2021-07-01] MEDS: PANTOPRAZOLE IV PUSH 40 MG VIAL. IVP SCH (08:40)
[2021-07-01] MEDS: NORMAL SALINE IV SCH ×2 (09:53→14:39)
[2021-07-01] MEDS: FOMEPIZOLE IV SCH ×2 (09:53→14:39)
--- NOTE | 2021-07-01 10:17 | EKG ---
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
--- NOTE | 2021-07-01 10:39 | PDOC2 ---
CONSULT Date of Consult Date of Consult DATE: 07/01/21 TIME: 10:38 Reason for Consult Reason for Consult: TRISTIN Identification/Chief Complaint Chief Complaint Unable to obtain, Intubated, MV Source Source: Chart review History of Present Illness Reason for Visit: Mr Alarcon is a 40yo CM w/ PMHx chronic osteoarthritis pain, seizure, borderline personality disorder who is an inmate brought from group home for unresponsiveness and concern for overdose. History obtained from chart review He was found on morning wellness check laying in a pile of vomit with suspicion patient had taken #420 of 325 mg of acetaminophen.He has been incarcerated since 2005 per corrections officers. Labs POA NA 142, K3 point delayed, BUN 14 CR 1.5, anion gap 22, glucose 243, lactic acid 5.3, calcium 7.6, bilirubin 0.3, AST 23, ALT 45, alkaline phosphatase 52, albumin 3.4, acetaminophen level 383.8, salicylates 1.2, urine drug screen positive for amphetamines, urinalysis bland with glucosuria and ketonuria. Patient was somnolent, drooling with brown emesis, confused in ED, barley answering to his name, and was assessed as not protecting his airway ED physician elected to intubate patient. Chest radiograph with ET tube near ayanna gastric tube overlying gastric bubble below the diaphragm. No other abnormalities on anahy unable to obtain due to his sedated on ventilator st radiograph on my interpretation. We re consulted for worsening renal function. He has been receiving N acetyl cysteine and Fomepizole with decline in Acetaminophen levels . He has excellent UOP Past Medical History Cardiovascular: No pertinent hx Past Surgical History Past Surgical History: No pertinent history Family History Family History: Family History Unknown Social History Social History Inmate Drugs: Crystal meth (tox screen +amphetamines) Current Problem List Problem List Problems Medical Problems: (1) Acetaminophen overdose Status: Acute Current Medications Current Medications Current Medications Acetylcysteine 15 gm/Dextrose 275 ml @ 200 mls/hr 1X ONCE IV Last administered on 06/30/21at 03:52; Start 06/30/21 at 04:00; Stop 06/30/21 at 05:22; Status DC Sodium Chloride 1,000 ml @ 1,000 mls/hr Q1H IV ; Start 06/30/21 at 04:00; Stop 06/30/21 at 04:59; Status DC Rocuronium [place] (Zemuron) 100 mg 1X ONCE IV Last administered on 06/30/21at 04:30; Start 06/30/21 at 04:30; Stop 06/30/21 at 04:31; Status DC Etomidate (Amidate) 30 mg 1X ONCE IV Last administered on 06/30/21at 04:30; Start 06/30/21 at 04:30; Stop 06/30/21 at 04:31; Status DC Propofol (Diprivan) 200 mg 1X ONCE IV ; Start 06/30/21 at 04:30; Stop 06/30/21 at 04:31; Status DC Fentanyl Citrate (Fentanyl 2ml Vial) 100 mcg 1X ONCE IVP ; Start 06/30/21 at 04:30; Stop 06/30/21 at 04:31; Status DC Propofol 100 ml @ 3.135 mls/ hr CONT PRN IV PER PROTOCOL Last administered on 07/01/21at 08:22; Start 06/30/21 at 04:30 Acetylcysteine 10 gm/Dextrose 1,050 ml @ 65.625 mls/ hr 1X ONCE IV Last administered on 06/30/21at 05:22; Start 06/30/21 at 05:30; Stop 06/30/21 at 21:29; Status DC Sodium Bicarbonate (Sodium Bicarb Adult 8.4% Syr) 50 meq 1X ONCE IV Last administered on 06/30/21at 09:43; Start 06/30/21 at 06:00; Stop 06/30/21 at 06:01; Status DC Etomidate (Amidate) 20 mg STK-MED ONCE IV ; Start 06/30/21 at 04:30; Stop 06/30/21 at 08:42; Status DC Rocuronium [place] (Zemuron) 50 mg STK-MED ONCE .ROUTE ; Start 06/30/21 at 04:30; Stop 06/30/21 at 08:42; Status DC Fomepizole 1.5 gm/ Sodium Chloride 101.5 ml @ 203 mls/hr 1X ONCE IV Last administered on 06/30/21at 09:44; Start 06/30/21 at 10:00; Stop 06/30/21 at 10:29; Status DC Sodium Bicarbonate (Sodium Bicarb Adult 8.4% Syr) 100 meq 1X ONCE IV ; Start 06/30/21 at 09:30; Stop 06/30/21 at 09:31; Status UNV Sodium Bicarbonate (Sodium Bicarb Adult 8.4% Syr) 50 meq 1X ONCE IV Last administered on 06/30/21at 09:44; Start 06/30/21 at 09:45; Stop 06/30/21 at 09:46; Status DC Acetylcysteine 12 gm/Dextrose 1,060 ml @ 110 mls/hr Q10H IV Last administered on 07/01/21at 03:50; Start 06/30/21 at 16:00 Fomepizole 1 gm/ Sodium Chloride 101 ml @ 202 mls/hr Q12HR IV Last administered on 07/01/21at 09:53; Start 06/30/21 at 22:00; Stop 07/02/21 at 09:29 Ondansetron HCl (Zofran) 4 mg PRN Q4HRS PRN IVP NAUSEA/VOMITING; Start 07/01/21 at 07:15 Glycerin/ Hypromellose/ Polyethylene (Artificial Tears) 1 drop PRN Q15MIN PRN OU DRY EYE Last administered on 07/01/21at 08:44; Start 07/01/21 at 07:15 Pantoprazole Sodium (PROTONIX VIAL for IV PUSH) 40 mg DAILYAC IVP Last administered on 07/01/21at 08:40; Start 07/01/21 at 07:30 Heparin Sodium (Porcine) (Heparin Sodium) 5,000 unit Q8HRS SQ ; Start 07/01/21 at 14:00 Sodium Bicarbonate 50 meq/Dextrose 1,050 ml @ 125 mls/hr Q8H24M IV Last administered on 07/01/21at 08:23; Start 07/01/21 at 08:00 Allergies Allergies: Coded Allergies: No Known Drug Allergies (Unverified , 06/30/21) ROS Review of System Unable to Obtain 2/2 Intubated/MV Physical Exam Physical Exam General: Sedated on ventilator HEENT: Atraumatic, EOMI, Mucous membr. moist/pink, ET and OG tube in place Lungs: Ventilatory breath sounds Heart: S1S2, RRR, no thrills, no rubs, no gallops, no murmurs Abdomen: Normal bowel sounds, Soft, No tenderness, No hepatosplenomegaly, No masses Extremities: No clubbing, No cyanosis, No edema, Normal pulses, No tenderness/swelling Skin: No rashes, No breakdown, No significant lesion Neuro: Reflexes 2+ sedated on Vent Psych/Mental Status: Unable to assess [place] + Vital Signs Vital Signs Date Time Temp Pulse Resp B/P (MAP) Pulse Ox O2 Delivery O2 Flow Rate FiO2 07/01/21 08:29 97 Ventilator 07/01/21 06:00 106 20 164/94 (117) 07/01/21 04:00 100.6 100.6 Assessment & Plan TRISTIN suspect ATN vs AIN , Non Oliguric , excellent UOP , Monitor for Polyuria. Declining renal function . UA unremarkable. Ordered Renal US . Supportive care, Maintain IV Hydration , avoid Nephrotoxins Currently No emergent indication for dialysis. Monitor closely Acetaminophen overdose -improving levels with N-acetylcysteine and fomepizole . No Indication for emergent Dialysis Acute encephalopathy - metabolic with amphetamine toxicity Metabolic acidosis - likely lactic acid related with some acute acetaminophen poisoning, Agree with IV bicarb, Consider switiching 2 3amps from 1 amp if no improvement with current management Seizures - per group home, resolved Lactic acidosis - likely related to acetaminophen OD, Amphetamine positive - unclear if intoxicated Borderline personality disorder -not on meds Labs Labs Laboratory Tests Test 06/30/21 04:49 06/30/21 04:55 06/30/21 05:06 06/30/21 08:23 Prothrombin Time 17.3 SEC (11.7-14.0) Prothromb Time International Ratio 1.5 (0.8-1.1) Activated Partial Thromboplast Time 25 SEC (24-38) Sodium Level 142 mmol/L (136-145) Potassium Level 3.9 mmol/L (3.5-5.1) Chloride Level 101 mmol/L (98-107) Carbon Dioxide Level 19 mmol/L (21-32) Anion Gap 22 (6-14) Blood Urea Nitrogen 14 mg/dL (8-26) Creatinine 1.5 mg/dL (0.7-1.3) Estimated GFR (Cockcroft-Gault) 51.3 Glucose Level 243 mg/dL (70-99) Lactic Acid Level 5.3 mmol/L (0.4-2.0) Calcium Level 7.6 mg/dL (8.5-10.1) Total Bilirubin 0.3 mg/dL (0.2-1.0) Direct Bilirubin 0.1 mg/dL (0.0-0.2) Aspartate Amino Transf (AST/SGOT) 23 U/L (15-37) Alanine Aminotransferase (ALT/SGPT) 45 U/L (16-63) Alkaline Phosphatase 52 U/L (46-116) Total Protein 6.4 g/dL (6.4-8.2) Albumin 3.4 g/dL (3.4-5.0) Salicylates Level 1.2 mg/dL (2.8-20.0) Salicylate Last Dose Date Unknown Salicylate Last Dose Time Unknown Acetaminophen Level 383.80 mcg/ml (10-30) Acetaminophen Last Dose Date Unknown Acetaminophen Last Dose Time Unknown Ethyl Alcohol Level < 10 mg/dL (0-10) Urine Collection Type Unknown Urine Color (Auto) Colorless Urine Turbidity Clear Urine pH (Auto) 5.5 (<5.0-8.0) Urine Specific [place] 1.015 (1.000-1.030) Urine Protein (Auto) Negative mg/dL (Negative) Urine Glucose (Auto)(UA) 200 mg/dL (Negative) Urine Ketones (Auto) >150 mg/dL (Negative) Urine Blood (Auto) Negative (Negative) Urine Nitrite (Auto) Negative (Negative) Urine Bilirubin (Auto) Negative (Negative) Urine Urobilinogen (Auto) Normal mg/dL (Normal) Urine Leukocyte Esterase (Auto) Negative (Negative) Urine RBC 0 /HPF (0-2) Urine WBC 1-4 /HPF (0-4) Urine Squamous Epithelial Cells Mod /LPF Urine Renal Epithelial Cells Occ /LPF Urine Bacteria 0 /HPF (0-FEW) Urine Mucus Slight /LPF Urine Opiates Screen Neg (NEG) Urine Methadone Screen Neg (NEG) Urine Barbiturates Neg (NEG) Urine Phencyclidine Screen Neg (NEG) Urine Amphetamine/Methamphetamine Pos (NEG) Urine Benzodiazepines Screen Neg (NEG) Urine Cocaine Screen Neg (NEG) Urine Cannabinoids Screen Neg (NEG) Urine Ethyl Alcohol Neg (NEG) O2 Saturation 98 % (92-99) 99 % (92-99) Arterial Blood pH 7.25 (7.35-7.45) 7.22 (7.35-7.45) Arterial Blood pCO2 at Patient Temp 39 mmHg (35-46) 32 mmHg (35-46) Arterial Blood pO2 at Patient Temp 136 mmHg (75-108) 161 mmHg (75-108) Arterial Blood HCO3 17 mmol/L (21-28) 13 mmol/L (21-28) Arterial Blood Base Excess -10 mmol/L (-3-3) -14 mmol/L (-3-3) FiO2 50 40% vent Oxyhemoglobin 97.6 % Methemoglobin 1.0 % (0.0-1.9) Carbon Monoxide, Quantitative 0.3 % (0.0-1.9) Test 06/30/21 09:50 06/30/21 12:15 06/30/21 17:56 07/01/21 00:01 Hemoglobin A1c 5.5 % (4.8-5.6) Lactic Acid Level 2.6 mmol/L (0.4-2.0) Sodium Level 143 mmol/L (136-145) 141 mmol/L (136-145) 138 mmol/L (136-145) Potassium Level 4.3 mmol/L (3.5-5.1) 4.3 mmol/L (3.5-5.1) 4.0 mmol/L (3.5-5.1) Chloride Level 105 mmol/L (98-107) 102 mmol/L (98-107) 98 mmol/L (98-107) Carbon Dioxide Level 23 mmol/L (21-32) 20 mmol/L (21-32) 21 mmol/L (21-32) Anion Gap 15 (6-14) 19 (6-14) 19 (6-14) Blood Urea Nitrogen 17 mg/dL (8-26) 19 mg/dL (8-26) 24 mg/dL (8-26) Creatinine 1.7 mg/dL (0.7-1.3) 2.1 mg/dL (0.7-1.3) 3.1 mg/dL (0.7-1.3) Estimated GFR (Cockcroft-Gault) 44.4 34.8 22.2 BUN/Creatinine Ratio 10 (6-20) 9 (6-20) 8 (6-20) Glucose Level 113 mg/dL (70-99) 121 mg/dL (70-99) 148 mg/dL (70-99) Calcium Level 8.2 mg/dL (8.5-10.1) 8.2 mg/dL (8.5-10.1) 8.0 mg/dL (8.5-10.1) Total Bilirubin 0.7 mg/dL (0.2-1.0) 0.6 mg/dL (0.2-1.0) 0.4 mg/dL (0.2-1.0) Aspartate Amino Transf (AST/SGOT) 29 U/L (15-37) 32 U/L (15-37) 34 U/L (15-37) Alanine Aminotransferase (ALT/SGPT) 59 U/L (16-63) 74 U/L (16-63) 75 U/L (16-63) Alkaline Phosphatase 53 U/L (46-116) 58 U/L (46-116) 55 U/L (46-116) Total Protein 6.4 g/dL (6.4-8.2) 6.7 g/dL (6.4-8.2) 7.2 g/dL (6.4-8.2) Albumin 3.5 g/dL (3.4-5.0) 3.6 g/dL (3.4-5.0) 3.7 g/dL (3.4-5.0) Albumin/Globulin Ratio 1.2 (1.0-1.7) 1.2 (1.0-1.7) 1.1 (1.0-1.7) Acetaminophen Level 249.73 mcg/ml (10-30) 180.74 mcg/ml (10-30) 104.2 mcg/ml (10-30) Acetaminophen Last Dose Date 06/30/21 Unknown Unk Acetaminophen Last Dose Time 040 Unknown Unk Test 07/01/21 06:15 07/01/21 07:34 Sodium Level 138 mmol/L (136-145) Potassium Level 4.1 mmol/L (3.5-5.1) Chloride Level 96 mmol/L (98-107) Carbon Dioxide Level 20 mmol/L (21-32) Anion Gap 22 (6-14) Blood Urea Nitrogen 31 mg/dL (8-26) Creatinine 3.5 mg/dL (0.7-1.3) Estimated GFR (Cockcroft-Gault) 19.3 BUN/Creatinine Ratio 9 (6-20) Glucose Level 130 mg/dL (70-99) Calcium Level 7.9 mg/dL (8.5-10.1) Total Bilirubin 0.4 mg/dL (0.2-1.0) Aspartate Amino Transf (AST/SGOT) 30 U/L (15-37) Alanine Aminotransferase (ALT/SGPT) 85 U/L (16-63) Alkaline Phosphatase 58 U/L (46-116) Total Protein 7.0 g/dL (6.4-8.2) Albumin 3.6 g/dL (3.4-5.0) Albumin/Globulin Ratio 1.1 (1.0-1.7) Acetaminophen Level 50.39 mcg/ml (10-30) Acetaminophen Last Dose Date 06/30/21 Acetaminophen Last Dose Time 0400 O2 Saturation 99 % (92-99) Arterial Blood pH 7.29 (7.35-7.45) Arterial Blood pCO2 at Patient Temp 37 mmHg (35-46) Arterial Blood pO2 at Patient Temp 169 mmHg (75-108) Arterial Blood HCO3 17 mmol/L (21-28) Arterial Blood Base Excess -8 mmol/L (-3-3) FiO2 40% vent Laboratory Tests Test 06/30/21 12:15 06/30/21 17:56 07/01/21 00:01 07/01/21 06:15 Sodium Level 143 mmol/L (136-145) 141 mmol/L (136-145) 138 mmol/L (136-145) 138 mmol/L (136-145) Potassium Level 4.3 mmol/L (3.5-5.1) 4.3 mmol/L (3.5-5.1) 4.0 mmol/L (3.5-5.1) 4.1 mmol/L (3.5-5.1) Chloride Level 105 mmol/L (98-107) 102 mmol/L (98-107) 98 mmol/L (98-107) 96 mmol/L (98-107) Carbon Dioxide Level 23 mmol/L (21-32) 20 mmol/L (21-32) 21 mmol/L (21-32) 20 mmol/L (21-32) Anion Gap 15 (6-14) 19 (6-14) 19 (6-14) 22 (6-14) Blood Urea Nitrogen 17 mg/dL (8-26) 19 mg/dL (8-26) 24 mg/dL (8-26) 31 mg/dL (8-26) Creatinine 1.7 mg/dL (0.7-1.3) 2.1 mg/dL (0.7-1.3) 3.1 mg/dL (0.7-1.3) 3.5 mg/dL (0.7-1.3) Estimated GFR (Cockcroft-Gault) 44.4 34.8 22.2 19.3 BUN/Creatinine Ratio 10 (6-20) 9 (6-20) 8 (6-20) 9 (6-20) Glucose Level 113 mg/dL (70-99) 121 mg/dL (70-99) 148 mg/dL (70-99) 130 mg/dL (70-99) Calcium Level 8.2 mg/dL (8.5-10.1) 8.2 mg/dL (8.5-10.1) 8.0 mg/dL (8.5-10.1) 7.9 mg/dL (8.5-10.1) Total Bilirubin 0.7 mg/dL (0.2-1.0) 0.6 mg/dL (0.2-1.0) 0.4 mg/dL (0.2-1.0) 0.4 mg/dL (0.2-1.0) Aspartate Amino Transf (AST/SGOT) 29 U/L (15-37) 32 U/L (15-37) 34 U/L (15-37) 30 U/L (15-37) Alanine Aminotransferase (ALT/SGPT) 59 U/L (16-63) 74 U/L (16-63) 75 U/L (16-63) 85 U/L (16-63) Alkaline Phosphatase 53 U/L (46-116) 58 U/L (46-116) 55 U/L (46-116) 58 U/L (46-116) Total Protein 6.4 g/dL (6.4-8.2) 6.7 g/dL (6.4-8.2) 7.2 g/dL (6.4-8.2) 7.0 g/dL (6.4-8.2) Albumin 3.5 g/dL (3.4-5.0) 3.6 g/dL (3.4-5.0) 3.7 g/dL (3.4-5.0) 3.6 g/dL (3.4-5.0) Albumin/Globulin Ratio 1.2 (1.0-1.7) 1.2 (1.0-1.7) 1.1 (1.0-1.7) 1.1 (1.0- 1.7) Acetaminophen Level 249.73 mcg/ml (10-30) 180.74 mcg/ml (10-30) 104.2 mcg/ml (10-30) 50.39 mcg/ml (10-30) Acetaminophen Last Dose Date 06/30/21 Unknown Unk 06/30/21 Acetaminophen Last Dose Time 040 Unknown Unk 040 Test 07/01/21 07:34 O2 Saturation 99 % (92-99) Arterial Blood pH 7.29 (7.35-7.45) Arterial Blood pCO2 at Patient Temp 37 mmHg (35-46) Arterial Blood pO2 at Patient Temp 169 mmHg (75-108) Arterial Blood HCO3 17 mmol/L (21-28) Arterial Blood Base Excess -8 mmol/L (-3-3) FiO2 40% vent Review All relevant outside records, renal labs, imaging studies, telemetry/EKG's were reviewed. Images Images Study: XR CHEST 1V Indication: Tube placement. Comparison: None. Findings: Endotracheal tube tip is at the ayanna and is deviated towards the right mainstem bronchus. Enteric tube extends into the stomach with the tip and sidehole not included in the [id number]. No confluent infiltrate, pleural effusion or pneumothorax. The cardiomediastinal silhouette is within normal limits for size. Impression: 1. Endotracheal tube tip is at the ayanna. Retraction is recommended by a few centimeters. 2. Enteric tube extension into the stomach. 3. No acute radiographic abnormality of the chest. JM GOODMAN MD Jul 01, 2021 10:39
--- NOTE | 2021-07-01 10:45 | PDOC ---
PULMONARY PROGRESS NOTES DATE: 07/01/21 TIME: 10:42 Subjective Patient remains intubated and sedated. Oxygen requirement has improved. Worsening TRISTIN. Vitals Vital Signs Date Time Temp Pulse Resp B/P (MAP) Pulse Ox O2 Delivery O2 Flow Rate FiO2 07/01/21 08:29 97 Ventilator 07/01/21 06:00 106 20 164/94 (117) 07/01/21 04:00 100.6 100.6 General: No acute distress Lungs: Clear Cardiovascular: S1 Abdomen: Soft Extremities: No Edema Skin: Warm Labs Laboratory Tests Test 06/30/21 04:49 06/30/21 04:55 06/30/21 05:06 06/30/21 08:23 Prothrombin Time 17.3 SEC (11.7-14.0) Prothromb Time International Ratio 1.5 (0.8-1.1) Activated Partial Thromboplast Time 25 SEC (24-38) Sodium Level 142 mmol/L (136-145) Potassium Level 3.9 mmol/L (3.5-5.1) Chloride Level 101 mmol/L (98-107) Carbon Dioxide Level 19 mmol/L (21-32) Anion Gap 22 (6-14) Blood Urea Nitrogen 14 mg/dL (8-26) Creatinine 1.5 mg/dL (0.7-1.3) Estimated GFR (Cockcroft-Gault) 51.3 Glucose Level 243 mg/dL (70-99) Lactic Acid Level 5.3 mmol/L (0.4-2.0) Calcium Level 7.6 mg/dL (8.5-10.1) Total Bilirubin 0.3 mg/dL (0.2-1.0) Direct Bilirubin 0.1 mg/dL (0.0-0.2) Aspartate Amino Transf (AST/SGOT) 23 U/L (15-37) Alanine Aminotransferase (ALT/SGPT) 45 U/L (16-63) Alkaline Phosphatase 52 U/L (46-116) Total Protein 6.4 g/dL (6.4-8.2) Albumin 3.4 g/dL (3.4-5.0) Salicylates Level 1.2 mg/dL (2.8-20.0) Salicylate Last Dose Date Unknown Salicylate Last Dose Time Unknown Acetaminophen Level 383.80 mcg/ml (10-30) Acetaminophen Last Dose Date Unknown Acetaminophen Last Dose Time Unknown Ethyl Alcohol Level < 10 mg/dL (0-10) Urine Collection Type Unknown Urine Color (Auto) Colorless Urine Turbidity Clear Urine pH (Auto) 5.5 (<5.0-8.0) Urine Specific [place] 1.015 (1.000-1.030) Urine Protein (Auto) Negative mg/dL (Negative) Urine Glucose (Auto)(UA) 200 mg/dL (Negative) Urine Ketones (Auto) >150 mg/dL (Negative) Urine Blood (Auto) Negative (Negative) Urine Nitrite (Auto) Negative (Negative) Urine Bilirubin (Auto) Negative (Negative) Urine Urobilinogen (Auto) Normal mg/dL (Normal) Urine Leukocyte Esterase (Auto) Negative (Negative) Urine RBC 0 /HPF (0-2) Urine WBC 1-4 /HPF (0-4) Urine Squamous Epithelial Cells Mod /LPF Urine Renal Epithelial Cells Occ /LPF Urine Bacteria 0 /HPF (0-FEW) Urine Mucus Slight /LPF Urine Opiates Screen Neg (NEG) Urine Methadone Screen Neg (NEG) Urine Barbiturates Neg (NEG) Urine Phencyclidine Screen Neg (NEG) Urine Amphetamine/Methamphetamine Pos (NEG) Urine Benzodiazepines Screen Neg (NEG) Urine Cocaine Screen Neg (NEG) Urine Cannabinoids Screen Neg (NEG) Urine Ethyl Alcohol Neg (NEG) O2 Saturation 98 % (92-99) 99 % (92-99) Arterial Blood pH 7.25 (7.35-7.45) 7.22 (7.35-7.45) Arterial Blood pCO2 at Patient Temp 39 mmHg (35-46) 32 mmHg (35-46) Arterial Blood pO2 at Patient Temp 136 mmHg (75-108) 161 mmHg (75-108) Arterial Blood HCO3 17 mmol/L (21-28) 13 mmol/L (21-28) Arterial Blood Base Excess -10 mmol/L (-3-3) -14 mmol/L (-3-3) FiO2 50 40% vent Oxyhemoglobin 97.6 % Methemoglobin 1.0 % (0.0-1.9) Carbon Monoxide, Quantitative 0.3 % (0.0-1.9) Test 06/30/21 09:50 06/30/21 12:15 06/30/21 17:56 07/01/21 00:01 Hemoglobin A1c 5.5 % (4.8-5.6) Lactic Acid Level 2.6 mmol/L (0.4-2.0) Sodium Level 143 mmol/L (136-145) 141 mmol/L (136-145) 138 mmol/L (136-145) Potassium Level 4.3 mmol/L (3.5-5.1) 4.3 mmol/L (3.5-5.1) 4.0 mmol/L (3.5-5.1) Chloride Level 105 mmol/L (98-107) 102 mmol/L (98-107) 98 mmol/L (98-107) Carbon Dioxide Level 23 mmol/L (21-32) 20 mmol/L (21-32) 21 mmol/L (21-32) Anion Gap 15 (6-14) 19 (6-14) 19 (6-14) Blood Urea Nitrogen 17 mg/dL (8-26) 19 mg/dL (8-26) 24 mg/dL (8-26) Creatinine 1.7 mg/dL (0.7-1.3) 2.1 mg/dL (0.7-1.3) 3.1 mg/dL (0.7-1.3) Estimated GFR (Cockcroft-Gault) 44.4 34.8 22.2 BUN/Creatinine Ratio 10 (6-20) 9 (6-20) 8 (6-20) Glucose Level 113 mg/dL (70-99) 121 mg/dL (70-99) 148 mg/dL (70-99) Calcium Level 8.2 mg/dL (8.5-10.1) 8.2 mg/dL (8.5-10.1) 8.0 mg/dL (8.5-10.1) Total Bilirubin 0.7 mg/dL (0.2-1.0) 0.6 mg/dL (0.2-1.0) 0.4 mg/dL (0.2-1.0) Aspartate Amino Transf (AST/SGOT) 29 U/L (15-37) 32 U/L (15-37) 34 U/L (15-37) Alanine Aminotransferase (ALT/SGPT) 59 U/L (16-63) 74 U/L (16-63) 75 U/L (16-63) Alkaline Phosphatase 53 U/L (46-116) 58 U/L (46-116) 55 U/L (46-116) Total Protein 6.4 g/dL (6.4-8.2) 6.7 g/dL (6.4-8.2) 7.2 g/dL (6.4-8.2) Albumin 3.5 g/dL (3.4-5.0) 3.6 g/dL (3.4-5.0) 3.7 g/dL (3.4-5.0) Albumin/Globulin Ratio 1.2 (1.0-1.7) 1.2 (1.0-1.7) 1.1 (1.0-1.7) Acetaminophen Level 249.73 mcg/ml (10-30) 180.74 mcg/ml (10-30) 104.2 mcg/ml (10-30) Acetaminophen Last Dose Date 06/30/21 Unknown Unk Acetaminophen Last Dose Time 0400 Unknown Unk Test 07/01/21 06:15 07/01/21 07:34 Sodium Level 138 mmol/L (136-145) Potassium Level 4.1 mmol/L (3.5-5.1) Chloride Level 96 mmol/L (98-107) Carbon Dioxide Level 20 mmol/L (21-32) Anion Gap 22 (6-14) Blood Urea Nitrogen 31 mg/dL (8-26) Creatinine 3.5 mg/dL (0.7-1.3) Estimated GFR (Cockcroft-Gault) 19.3 BUN/Creatinine Ratio 9 (6-20) Glucose Level 130 mg/dL (70-99) Calcium Level 7.9 mg/dL (8.5-10.1) Total Bilirubin 0.4 mg/dL (0.2-1.0) Aspartate Amino Transf (AST/SGOT) 30 U/L (15-37) Alanine Aminotransferase (ALT/SGPT) 85 U/L (16-63) Alkaline Phosphatase 58 U/L (46-116) Total Protein 7.0 g/dL (6.4-8.2) Albumin 3.6 g/dL (3.4-5.0) Albumin/Globulin Ratio 1.1 (1.0-1.7) Acetaminophen Level 50.39 mcg/ml (10-30) Acetaminophen Last Dose Date 06/30/21 Acetaminophen Last Dose Time 0400 O2 Saturation 99 % (92-99) Arterial Blood pH 7.29 (7.35-7.45) Arterial Blood pCO2 at Patient Temp 37 mmHg (35-46) Arterial Blood pO2 at Patient Temp 169 mmHg (75-108) Arterial Blood HCO3 17 mmol/L (21-28) Arterial Blood Base Excess -8 mmol/L (-3-3) FiO2 40% vent Laboratory Tests Test 06/30/21 12:15 06/30/21 17:56 07/01/21 00:01 07/01/21 06:15 Sodium Level 143 mmol/L (136-145) 141 mmol/L (136-145) 138 mmol/L (136-145) 138 mmol/L (136-145) Potassium Level 4.3 mmol/L (3.5-5.1) 4.3 mmol/L (3.5-5.1) 4.0 mmol/L (3.5-5.1) 4.1 mmol/L (3.5-5.1) Chloride Level 105 mmol/L (98-107) 102 mmol/L (98-107) 98 mmol/L (98-107) 96 mmol/L (98-107) Carbon Dioxide Level 23 mmol/L (21-32) 20 mmol/L (21-32) 21 mmol/L (21-32) 20 mmol/L (21-32) Anion Gap 15 (6-14) 19 (6-14) 19 (6-14) 22 (6-14) Blood Urea Nitrogen 17 mg/dL (8-26) 19 mg/dL (8-26) 24 mg/dL (8-26) 31 mg/dL (8-26) Creatinine 1.7 mg/dL (0.7-1.3) 2.1 mg/dL (0.7-1.3) 3.1 mg/dL (0.7-1.3) 3.5 mg/dL (0.7-1.3) Estimated GFR (Cockcroft-Gault) 44.4 34.8 22.2 19.3 BUN/Creatinine Ratio 10 (6-20) 9 (6-20) 8 (6-20) 9 (6-20) Glucose Level 113 mg/dL (70-99) 121 mg/dL (70-99) 148 mg/dL (70-99) 130 mg/dL (70-99) Calcium Level 8.2 mg/dL (8.5-10.1) 8.2 mg/dL (8.5-10.1) 8.0 mg/dL (8.5-10.1) 7.9 mg/dL (8.5-10.1) Total Bilirubin 0.7 mg/dL (0.2-1.0) 0.6 mg/dL (0.2-1.0) 0.4 mg/dL (0.2-1.0) 0.4 mg/dL (0.2-1.0) Aspartate Amino Transf (AST/SGOT) 29 U/L (15-37) 32 U/L (15-37) 34 U/L (15-37) 30 U/L (15-37) Alanine Aminotransferase (ALT/SGPT) 59 U/L (16-63) 74 U/L (16-63) 75 U/L (16-63) 85 U/L (16-63) Alkaline Phosphatase 53 U/L (46-116) 58 U/L (46-116) 55 U/L (46-116) 58 U/L (46-116) Total Protein 6.4 g/dL (6.4-8.2) 6.7 g/dL (6.4-8.2) 7.2 g/dL (6.4-8.2) 7.0 g/dL (6.4-8.2) Albumin 3.5 g/dL (3.4-5.0) 3.6 g/dL (3.4-5.0) 3.7 g/dL (3.4-5.0) 3.6 g/dL (3.4-5.0) Albumin/Globulin Ratio 1.2 (1.0-1.7) 1.2 (1.0-1.7) 1.1 (1.0-1.7) 1.1 (1.0- 1.7) Acetaminophen Level 249.73 mcg/ml (10-30) 180.74 mcg/ml (10-30) 104.2 mcg/ml (10-30) 50.39 mcg/ml (10-30) Acetaminophen Last Dose Date 06/30/21 Unknown Unk 06/30/21 Acetaminophen Last Dose Time 040 Unknown Unk 0400 Test 07/01/21 07:34 O2 Saturation 99 % (92-99) Arterial Blood pH 7.29 (7.35-7.45) Arterial Blood pCO2 at Patient Temp 37 mmHg (35-46) Arterial Blood pO2 at Patient Temp 169 mmHg (75-108) Arterial Blood HCO3 17 mmol/L (21-28) Arterial Blood Base Excess -8 mmol/L (-3-3) FiO2 40% vent Impression . 1. Acute respiratory failure secondary to acetaminophen overdose. He was also positive for meth. 2. Acute toxic encephalopathy. 3. Metabolic acidosis related to acetaminophen overdose and ATN. Slightly worse 4. Needs to closely follow up liver function tests, rule out hepatic failure. 5. Acute kidney injury. Worse today. 6. Lactic acidosis. 7. Mildly increased INR of 1.5. Needs to watch for any worsening coagulopathy related to acetaminophen overdose. 8. Abnormal chest x-ray with endotracheal tube at the opening of the right main stem bronchus. Repeat chest x-ray ordered today. Plan . RECOMMENDATIONS: 1. Discussed with RN and RT. We will continue with present assist control mode. ABGs have improved. 2. Bicarb drip per renal. 3. Monitor liver function test and bicarbonate level closely. 4. Monitor INR and rule out any worsening coagulopathy. 5. Continue N-acetylcysteine per protocol. 6. Discussed with renal. No plans for dialysis at present. Continue to monitor renal function. 7. Fomepizole given per poison control recommendation.. 8. SCDs for DVT prophylaxis due to INR being already elevated. 9. Followup lactic acid level. 10. Discussed with RN and RT. Critical care time 30 minutes HARLEY MOFFETT MD Jul 01, 2021 10:45
[2021-07-01 10:59] LABS: BASO # 0.1 x10^3/uL (0.0-0.2); BASO % 0 % (0-3); EOS % 0 % (0-3); HEMATOCRIT 53.1 % (39.0-53.0); HEMOGLOBIN 17.7 g/dL (13.0-17.5); LYMPH # 1.7 x10^3/uL (1.0-4.8); LYMPH % 7 % (24-48); MEAN CORPUSCULAR HEMOGLOBIN 30 pg (25-35); MEAN CORPUSCULAR HGB CONC 33 g/dL (31-37); MEAN CORPUSCULAR VOLUME 90 fL (79-100); MONO # 2.1 x10^3/uL (0.0-1.1); MONO % 8 % (0-9); NEUT # 21.6 x10^3/uL (1.8-7.7); NEUT % 85 % (31-73); PLATELET COUNT 268 x10^3/uL (140-400); RED BLOOD COUNT 5.93 x10^6/uL (4.30-5.70); RED CELL DISTRIBUTION WIDTH 14.2 % (11.5-14.5); WHITE BLOOD COUNT 25.5 x10^3/uL (4.0-11.0)
--- NOTE | 2021-07-01 11:39 | RAD ---
US ABDOMEN COMPLETE History: TRISTIN/tylenol OD/ increase ALT / Spl. Instructions: / History: Comparison: None. Technique: Sonographic examination of the abdomen was performed and multiple grayscale and color Dopp ler static images were obtained. Findings: Liver demonstrates increased echogenicity. The liver measures 13.5 cm. Portal flow is patent. No cholelithiasis, gallbladder wall thickening or pericholecystic fluid. Common bile duct measures 3 mm in diameter. Visualized pancreas not well seen due to overlying structures. The right kidney measures 10.7 x 4.7 x 6.3 cm. No hydronephrosis. The left kidney measures 11.8 x 5.3 x 5.7 cm. No hydronephrosis. The spleen measures 10.5 cm. Visualized portions of the abdominal aorta and IVC are normal. Decompressed urinary bladder with Buchanan catheter in place. IMPRESSION: 1. Heterogeneous increased hepatic echotexture, may represent underlying liver disease such as steat osis. Electronically signed by: Humble Abad DO (07/01/2021 11:36 AM) [id number]
--- NOTE | 2021-07-01 12:05 | PDOC ---
Date of Service: DATE: 07/01/21 TIME: 12:01 Subjective: Subjective: Guards present - say he took 32 Tylenol. Objective: Objective: D/w nurse. Vital Signs: Vital Signs Date Time Temp Pulse Resp B/P (MAP) Pulse Ox O2 Delivery O2 Flow Rate FiO2 07/01/21 11:11 97 Ventilator 07/01/21 06:00 106 20 164/94 (117) 07/01/21 04:00 100.6 100.6 Labs: Laboratory Tests Test 06/30/21 12:15 06/30/21 17:56 07/01/21 00:01 07/01/21 06:15 Sodium Level 143 mmol/L 141 mmol/L 138 mmol/L 138 mmol/L Potassium Level 4.3 mmol/L 4.3 mmol/L 4.0 mmol/L 4.1 mmol/L Chloride Level 105 mmol/L 102 mmol/L 98 mmol/L 96 mmol/L Carbon Dioxide Level 23 mmol/L 20 mmol/L 21 mmol/L 20 mmol/L Anion Gap 15 19 19 22 Blood Urea Nitrogen 17 mg/dL 19 mg/dL 24 mg/dL 31 mg/dL Creatinine 1.7 mg/dL 2.1 mg/dL 3.1 mg/dL 3.5 mg/dL Estimated GFR (Cockcroft-Gault) 44.4 34.8 22.2 19.3 BUN/Creatinine Ratio 10 9 8 9 Glucose Level 113 mg/dL 121 mg/dL 148 mg/dL 130 mg/dL Calcium Level 8.2 mg/dL 8.2 mg/dL 8.0 mg/dL 7.9 mg/dL Total Bilirubin 0.7 mg/dL 0.6 mg/dL 0.4 mg/dL 0.4 mg/dL Aspartate Amino Transf (AST/SGOT) 29 U/L 32 U/L 34 U/L 30 U/L Alanine Aminotransferase (ALT/SGPT) 59 U/L 74 U/L 75 U/L 85 U/L Alkaline Phosphatase 53 U/L 58 U/L 55 U/L 58 U/L Total Protein 6.4 g/dL 6.7 g/dL 7.2 g/dL 7.0 g/dL Albumin 3.5 g/dL 3.6 g/dL 3.7 g/dL 3.6 g/dL Albumin/Globulin Ratio 1.2 1.2 1.1 1.1 Acetaminophen Level 249.73 mcg/ml 180.74 mcg/ml 104.2 mcg/ml 50.39 mcg/ml Acetaminophen Last Dose Date 06/30/21 Unknown Unk 06/30/21 Acetaminophen Last Dose Time 0400 Unknown Unk 0400 White Blood Count 25.5 x10^3/uL Red Blood Count 5.93 x10^6/uL Hemoglobin 17.7 g/dL Hematocrit 53.1 % Mean Corpuscular Volume 90 fL Mean Corpuscular Hemoglobin 30 pg Mean Corpuscular Hemoglobin Concent 33 g/dL Red Cell Distribution Width 14.2 % Platelet Count 268 x10^3/uL Neutrophils (%) (Auto) 85 % Lymphocytes (%) (Auto) 7 % Monocytes (%) (Auto) 8 % Eosinophils (%) (Auto) 0 % Basophils (%) (Auto) 0 % Neutrophils # (Auto) 21.6 x10^3/uL Lymphocytes # (Auto) 1.7 x10^3/uL Monocytes # (Auto) 2.1 x10^3/uL Eosinophils # (Auto) 0.0 x10^3/uL Basophils # (Auto) 0.1 x10^3/uL Platelet Estimate Pending Test 07/01/21 07:34 O2 Saturation 99 % Arterial Blood pH 7.29 Arterial Blood pCO2 at Patient Temp 37 mmHg Arterial Blood pO2 at Patient Temp 169 mmHg Arterial Blood HCO3 17 mmol/L Arterial Blood Base Excess -8 mmol/L FiO2 40% vent Imaging: Abd US Findings: Liver demonstrates increased echogenicity. The liver measures 13.5 cm. Portal flow is patent. No cholelithiasis, gallbladder wall thickening or pericholecystic fluid. Common bile duct measures 3 mm in diameter. Visualized pancreas not well seen due to overlying structures. The right kidney measures 10.7 x 4.7 x 6.3 cm. No hydronephrosis. The left kidney measures 11.8 x 5.3 x 5.7 cm. No hydronephrosis. The spleen measures 10.5 cm. Visualized portions of the abdominal aorta and IVC are normal. Decompressed urinary bladder with Buchanan catheter in place. IMPRESSION: 1. Heterogeneous increased hepatic echotexture, may represent underlying liver disease such as steatosis. PE: GEN: intubated LUNGS: clear/vent HEART: mildly tachycardic ABD: dark bilious OG output NEURO/PSYCH: sedated A/P: Acetaminophen overdose, TRISTIN, leukocytosis -- ALT mildly elevated, recheck of INR pending. Finishing Mucomyst protocol. Justicifation of Admission Dx: Justifications for Admission: Justification of Admission Dx: Yes ERIN VAN Jul 01, 2021 12:05
[2021-07-01 12:45] LABS: ACETAMIN 31.9 mcg/ml (10-30)
[2021-07-01 12:46] LABS: ALBUMIN 3.2 g/dL (3.4-5.0); ALBUMIN/GLOBULIN RATIO 0.9 (1.0-1.7); CALCIUM 7.4 mg/dL (8.5-10.1); GFR 16.5; POTASSIUM 3.8 mmol/L (3.5-5.1); TOTAL BILIRUBIN 0.3 mg/dL (0.2-1.0); TOTAL PROTEIN 6.6 g/dL (6.4-8.2)
[2021-07-01 12:47] LABS: % LYMPHS 5 % (24-48); % MONOS 2 % (0-10); % SEGS 93 % (35-66); PLT ESTIMATE ADEQUATE (ADEQUATE)
[2021-07-01 12:47] LABS: PROTHROMBIN TIME PATIENT 16.3 SEC (11.7-14.0)
[2021-07-01] MEDS: HEPARIN for SUB-Q USE 5,000 UNIT/ML VIAL. SQ SCH ×2 (14:00→21:02)
[2021-07-01 20:19] LABS: ALBUMIN 3.1 g/dL (3.4-5.0); ALBUMIN/GLOBULIN RATIO 0.9 (1.0-1.7); CALCIUM 7.6 mg/dL (8.5-10.1); CREATININE 3.8 mg/dL (0.7-1.3); GFR 17.6; POTASSIUM 3.4 mmol/L (3.5-5.1); TOTAL BILIRUBIN 0.3 mg/dL (0.2-1.0); TOTAL PROTEIN 6.5 g/dL (6.4-8.2)
[2021-07-01 20:21] LABS: ACETAMIN 12.7 mcg/ml (10-30)
[2021-07-02] VITALS (24 sets, daily range): BP systolic 91–144; BP diastolic 64–92
[2021-07-02] MEDS: DEXTROSE 5% IV SCH ×2 (00:35→08:00)
[2021-07-02] MEDS: SODIUM BICARBONATE VIAL 50 MEQ in IV DEXTROSE 5% 1,000 ML IV SCH (00:35)
[2021-07-02] MEDS: ACETYLCYSTEINE IV SCH ×2 (00:35→08:00)
[2021-07-02 01:30] LABS: ALBUMIN 2.9 g/dL (3.4-5.0); ALBUMIN/GLOBULIN RATIO 0.8 (1.0-1.7); CALCIUM 7.7 mg/dL (8.5-10.1); CREATININE 3.4 mg/dL (0.7-1.3); POTASSIUM 3.3 mmol/L (3.5-5.1); TOTAL BILIRUBIN 0.4 mg/dL (0.2-1.0); TOTAL PROTEIN 6.4 g/dL (6.4-8.2)
[2021-07-02 01:34] LABS: ACETAMIN 6.6 mcg/ml (10-30)
[2021-07-02] MEDS: PROPOFOL 100 ML IV PRN ×7 (01:46→21:37)
[2021-07-02] MEDS: HEPARIN for SUB-Q USE 5,000 UNIT/ML VIAL. SQ SCH ×3 (05:38→22:27)
[2021-07-02 07:49] LABS: BASE EXCESS ABG -1 mmol/L (-3-3); HCO3 ABG 23 mmol/L (21-28); PCO2 ABG 37 mmHg (35-46); PO2 ABG 149 mmHg (75-108); SAT O2 ABG 99 % (92-99)
[2021-07-02 07:51] LABS: FIO2 ABG 40% vent
[2021-07-02] MEDS: IV DEXTROSE 5% - 0.9 % NACL 1,000 ML IV SCH ×2 (08:30→21:35)
--- NOTE | 2021-07-02 08:34 | PDOC ---
[facility] PROGRESS NOTE Date of Service DOS: DATE: 07/02/21 TIME: 08:33 Chief Complaint Chief Complaint Acute encephalopathy - metabolic, likely due to medication overdose, possibly also with amphetamine toxicity Acetaminophen overdose -unclear if intentional or not. On N-acetylcysteine 2 bag protocol (200 mg/kg mag 1 and 6.25 mg/kg hourly for 16 hours) given within 8 hours will trend every 4 to 6 hours labs. Poison control recommended addition of fomepizole as well, given x1 Metabolic acidosis - likely lactic acid related with some acute acetaminophen poisoning, will trend. Bicarb per ED and pulmonology Chronic osteoarthritis pain -if acetaminophen negative and ibuprofen are given to the future would recommend to dose pill packs daily. Seizures - per senior care, resolved TRISTIN - no renal dysfunction, likely vasomotor nephropathy. Will obtain non- contrast abdominal imaging to r/o obstructive uropathy vs medical renal disease Lactic acidosis - likely related to acetaminophen OD, will trend Amphetamine positive - unclear if intoxicated Borderline personality disorder -not on meds Hyperglycemia - A1c 5.5, no DM history FEN - NPO, OGT PPX - heparin FULL CODE Dispo - ICU cc time 33 min History of Present Illness History of Present Illness Mr Alarcon is a 40yo male w/ PMHx chronic osteoarthritis pain, seizure, borderline personality disorder who is an inmate brought from senior care for unresponsiveness and concern for overdose. History obtained from ED paperwork and from [place] [employer] officers. He was found on morning wellness check this morning prior to 0400 laying in a pile of vomit with suspicion patient had taken #420 of 325 mg of acetaminophen. He has been incarcerated since 2005 per corrections officers. Labs at 0449 NA 142, K3 point delayed, BUN 14 CR 1.5, anion gap 22, glucose 243, lactic acid 5.3, calcium 7.6, bilirubin 0.3, AST 23, ALT 45, alkaline phosphatase 52, albumin 3.4, acetaminophen level 383.8, salicylates 1.2, urine drug screen positive for amphetamines, urinalysis bland with glucosuria and ketonuria. Patient was notably somnolent, drooling with brown emesis, confused in ED, barley answering to his name, and was assessed as not protecting his airway ED physician elected to intubate patient. Chest radiograph with ET tube near ayanna gastric tube overlying gastric bubble below the diaphragm. No other abnormalities on CXR on my interpretation. Initial ABG 7.245/38.9/136.4 Repeat ABG 7.221/31.5/161 on AC mode 40 breaths/min per tidal volume 450 PEEP of 5 FiO2 40% 07/01: Seen on vent AC mode PEEP 5 FiO2 40%, ABG pH 7.29 this morning. Creatinine climbing to 3.5, urine output 5.7 L last 24 hours. ALT 85 now, INR 1.5. Acetaminophen level 50. CBC pending, CT abdomen/pelvis ordered. started on free water. 07/02: On vent AC mode PEEP 5 FiO2 40% with O2 saturations 90%. Creatinine still not improving. INR 1.4. Repeat morning labs pending acetaminophen level was 6.6 admit overnight planned continue Mucomyst until level is 0. Abdominal ultrasound with no renal disease or obstruction noted but diffuse hepatic s teatosis noted. Vitals/I&O Vitals/I&O: Vital Signs Date Time Temp Pulse Resp B/P (MAP) Pulse Ox O2 Delivery O2 Flow Rate FiO2 07/02/21 07:38 99 Ventilator 07/02/21 07:00 98 20 134/86 07/02/21 04:00 99.0 99.0 I & O 07/01/21 07/01/21 07/02/21 15:00 23:00 07:00 Intake Total 537 ml 3349 ml 4571.1 ml Output Total 830 ml 1635 ml 1865 ml Balance -293 ml 1714 ml 2706.1 ml Physical Exam General: Other (Sedated on ventilator) Lungs: Clear Abdomen: Normal bowel sounds, Soft, No tenderness, No hepatosplenomegaly, No masses Extremities: No clubbing, No cyanosis, No edema, Normal pulses, No tenderness/swelling Skin: No rashes, No breakdown, No significant lesion Labs Labs: Laboratory Tests Test 07/01/21 12:00 07/01/21 18:15 07/02/21 01:00 07/02/21 07:47 Prothrombin Time 16.3 SEC (11.7-14.0) Prothromb Time International Ratio 1.4 (0.8-1.1) Sodium Level 134 mmol/L (136-145) 132 mmol/L (136-145) 127 mmol/L (136-145) Potassium Level 3.8 mmol/L (3.5-5.1) 3.4 mmol/L (3.5-5.1) 3.3 mmol/L (3.5-5.1) Chloride Level 93 mmol/L (98-107) 92 mmol/L (98-107) 90 mmol/L (98-107) Carbon Dioxide Level 22 mmol/L (21-32) 22 mmol/L (21-32) 22 mmol/L (21-32) Anion Gap 19 (6-14) 18 (6-14) 15 (6-14) Blood Urea Nitrogen 33 mg/dL (8-26) 33 mg/dL (8-26) 31 mg/dL (8-26) Creatinine 4.0 mg/dL (0.7-1.3) 3.8 mg/dL (0.7-1.3) 3.4 mg/dL (0.7-1.3) Estimated GFR (Cockcroft-Gault) 16.5 17.6 20.0 BUN/Creatinine Ratio 8 (6-20) 9 (6-20) 9 (6-20) Glucose Level 181 mg/dL (70-99) 150 mg/dL (70-99) 155 mg/dL (70-99) Calcium Level 7.4 mg/dL (8.5-10.1) 7.6 mg/dL (8.5-10.1) 7.7 mg/dL (8.5-10.1) Total Bilirubin 0.3 mg/dL (0.2-1.0) 0.3 mg/dL (0.2-1.0) 0.4 mg/dL (0.2-1.0) Aspartate Amino Transf (AST/SGOT) 27 U/L (15-37) 25 U/L (15-37) 27 U/L (15-37) Alanine Aminotransferase (ALT/SGPT) 77 U/L (16-63) 80 U/L (16-63) 75 U/L (16-63) Alkaline Phosphatase 50 U/L (46-116) 50 U/L (46-116) 53 U/L (46-116) Creatine Kinase 98 U/L (39-308) Total Protein 6.6 g/dL (6.4-8.2) 6.5 g/dL (6.4-8.2) 6.4 g/dL (6.4-8.2) Albumin 3.2 g/dL (3.4-5.0) 3.1 g/dL (3.4-5.0) 2.9 g/dL (3.4-5.0) Albumin/Globulin Ratio 0.9 (1.0-1.7) 0.9 (1.0-1.7) 0.8 (1.0-1.7) Acetaminophen Level 31.9 mcg/ml (10-30) 12.7 mcg/ml (10-30) 6.6 mcg/ml (10-30) Acetaminophen Last Dose Date 06/30/21 06/30/21 Unk Acetaminophen Last Dose Time 399 040 Unk O2 Saturation 99 % (92-99) Arterial Blood pH 7.41 (7.35-7.45) Arterial Blood pCO2 at Patient Temp 37 mmHg (35-46) Arterial Blood pO2 at Patient Temp 149 mmHg (75-108) Arterial Blood HCO3 23 mmol/L (21-28) Arterial Blood Base Excess -1 mmol/L (-3-3) FiO2 40% vent Assessment and Plan Assessmemt and Plan Problems Medical Problems: (1) Acetaminophen overdose Status: Acute Comment Review of Relevant I have reviewed the following items cherelle (where applicable) has been applied. Medications: Current Medications Medications (Trade) Dose Ordered Sig/Danielito Route PRN Reason Start Time Stop Time Status Last Admin Dose Admin Heparin Sodium (Porcine) (Heparin Sodium) 5,000 unit Q8HRS SQ 07/01/21 14:00 07/02/21 05:38 Justifications for Admission Other Justification PILAR CONWAY MD Jul 02, 2021 08:34
--- NOTE | 2021-07-02 09:12 | PDOC ---
DATE OF SERVICE DATE: 07/02/21 TIME: 09:09 SUBJECTIVE ROS Stable,No new concerns voiced by nursing OBJECTIVE Vital Signs Vital Signs Date Time Temp Pulse Resp B/P (MAP) Pulse Ox O2 Delivery O2 Flow Rate FiO2 07/02/21 07:38 99 Ventilator 07/02/21 07:00 98 20 134/86 07/02/21 04:00 99.0 99.0 I & 0 Intake and Output 07/02/21 07:00 Intake Total 8457.1 ml Output Total 4330 ml Balance 4127.1 ml Intake IV Total 5988.1 ml Tube Feeding 1589 ml Other 880 ml Output Urine Total 4330 ml Gastric Drainage Total 0 ml PHYSICAL EXAM Physical Exam General: Sedated on ventilator HEENT: Atraumatic, EOMI, Mucous membr. moist/pink, ET and OG tube in place Lungs: Ventilatory breath sounds Heart: S1S2, RRR, no thrills, no rubs, no gallops, no murmurs Abdomen: Normal bowel sounds, Soft, No tenderness, No hepatosplenomegaly, No masses Extremities: No clubbing, No cyanosis, No edema, Normal pulses, No tend erness/swelling Skin: No rashes, No breakdown, No significant lesion Neuro: Reflexes 2+ sedated on Vent Psych/Mental Status: Unable to assess Buchanan + DIAGNOSIS/ASSESSMENT Assessment & Plan TRISTIN suspect ATN vs AIN , Non Oliguric , excellent UOP , Monitor for Polyuria. Creatinine trending down UA unremarkable Renal US- unremarkable . Sup portive care, Maintain IV Hydration , avoid Nephrotoxins Currently No emergent indication for dialysis. Monitor closely HypoNatremia - Getting D5W . Switch to NS Acidosis- getting 1 amp of Bivcarb in D5W, stopped , switched to NS 2/2 Low Na. Bicarb Normal CURRENTLY , if starts tending down switch to D W with 3 amps of Bicarb Acetaminophen overdose -improving levels down to 6 with N-acetylcysteine and fomepizole . No Indication for emergent Dialysis Acute encephalopathy - metabolic with amphetamine toxicity Seizures - per [facility], resolved Lactic acidosis - likely related to acetaminophen OD, Amphetamine positive - unclear if intoxicated Borderline personality disorder -not on meds Labs COMMENT/RELEVANT DATA Meds Current Medications Medications (Trade) Dose Ordered Sig/Danielito Start Time Stop Time Status Last Admin Dose Admin Acetylcysteine 10 gm/Dextrose 1,050 ml @ 65.625 mls/ hr 1X ONCE 06/30/21 05:30 06/30/21 21:29 DC 06/30/21 05:22 65.625 MLS/HR Acetylcysteine 12 gm/Dextrose 1,060 ml @ 110 mls/hr Q10H 06/30/21 16:00 07/02/21 00:35 110 MLS/HR Acetylcysteine 15 gm/Dextrose 275 ml @ 200 mls/hr 1X ONCE 06/30/21 04:00 06/30/21 05:22 DC 06/30/21 03:52 200 MLS/HR Dextrose/Sodium Chloride 1,000 ml @ 75 mls/hr [id number] 07/02/21 08:30 Etomidate (Amidate) 20 mg STK-MED ONCE 06/30/21 04:30 06/30/21 08:42 DC Fentanyl Citrate (Fentanyl 2ml Vial) 100 mcg 1X ONCE 06/30/21 04:30 06/30/21 04:31 DC Fomepizole 1 gm/ Sodium Chloride 101 ml @ 202 mls/hr Q12HR 06/30/21 22:00 07/02/21 09:29 07/01/21 14:39 202 MLS/HR Fomepizole 1.5 gm/ Sodium Chloride 101.5 ml @ 203 mls/hr 1X ONCE 06/30/21 10:00 06/30/21 10:29 DC 06/30/21 09:44 203 MLS/HR Glycerin/ Hypromellose/ Polyethylene (Artificial Tears) 1 drop PRN Q15MIN PRN 07/01/21 07:15 07/01/21 08:44 1 DROP Heparin Sodium (Porcine) (Heparin Sodium) 5,000 unit Q8HRS 07/01/21 14:00 07/02/21 05:38 5,000 UNIT Ondansetron HCl (Zofran) 4 mg PRN Q4HRS PRN 07/01/21 07:15 Pantoprazole Sodium (PROTONIX VIAL for IV PUSH) 40 mg DAILYAC 07/01/21 07:30 07/01/21 08:40 40 MG Propofol 100 ml @ 3.135 mls/ hr CONT PRN 06/30/21 04:30 07/02/21 04:20 28.215 MLS/HR Propofol (Diprivan) 200 mg 1X ONCE 06/30/21 04:30 06/30/21 04:31 DC Rocuronium [place] (Zemuron) 50 mg STK-MED ONCE 06/30/21 04:30 06/30/21 08:42 DC Sodium Bicarbonate 50 meq/Dextrose 1,050 ml @ 125 mls/hr Q8H24M 07/01/21 08:00 07/02/21 08:30 DC 07/02/21 00:35 125 MLS/HR Sodium Bicarbonate (Sodium Bicarb Adult 8.4% Syr) 50 meq 1X ONCE 06/30/21 09:45 06/30/21 09:46 DC 06/30/21 09:44 50 MEQ Sodium Chloride 1,000 ml @ 1,000 mls/hr Q1H 06/30/21 04:00 06/30/21 04:59 DC Lab Laboratory Tests Test 07/01/21 12:00 07/01/21 18:15 07/02/21 01:00 07/02/21 07:47 Prothrombin Time 16.3 SEC (11.7-14.0) Prothromb Time International Ratio 1.4 (0.8-1.1) Sodium Level 134 mmol/L (136-145) 132 mmol/L (136-145) 127 mmol/L (136-145) Potassium Level 3.8 mmol/L (3.5-5.1) 3.4 mmol/L (3.5-5.1) 3.3 mmol/L (3.5-5.1) Chloride Level 93 mmol/L (98-107) 92 mmol/L (98-107) 90 mmol/L (98-107) Carbon Dioxide Level 22 mmol/L (21-32) 22 mmol/L (21-32) 22 mmol/L (21-32) Anion Gap 19 (6-14) 18 (6-14) 15 (6-14) Blood Urea Nitrogen 33 mg/dL (8-26) 33 mg/dL (8-26) 31 mg/dL (8-26) Creatinine 4.0 mg/dL (0.7-1.3) 3.8 mg/dL (0.7-1.3) 3.4 mg/dL (0.7-1.3) Estimated GFR (Cockcroft-Gault) 16.5 17.6 20.0 BUN/Creatinine Ratio 8 (6-20) 9 (6-20) 9 (6-20) Glucose Level 181 mg/dL (70-99) 150 mg/dL (70-99) 155 mg/dL (70-99) Calcium Level 7.4 mg/dL (8.5-10.1) 7.6 mg/dL (8.5-10.1) 7.7 mg/dL (8.5-10.1) Total Bilirubin 0.3 mg/dL (0.2-1.0) 0.3 mg/dL (0.2-1.0) 0.4 mg/dL (0.2-1.0) Aspartate Amino Transf (AST/SGOT) 27 U/L (15-37) 25 U/L (15-37) 27 U/L (15-37) Alanine Aminotransferase (ALT/SGPT) 77 U/L (16-63) 80 U/L (16-63) 75 U/L (16-63) Alkaline Phosphatase 50 U/L (46-116) 50 U/L (46-116) 53 U/L (46-116) Creatine Kinase 98 U/L (39-308) Total Protein 6.6 g/dL (6.4-8.2) 6.5 g/dL (6.4-8.2) 6.4 g/dL (6.4-8.2) Albumin 3.2 g/dL (3.4-5.0) 3.1 g/dL (3.4-5.0) 2.9 g/dL (3.4-5.0) Albumin/Globulin Ratio 0.9 (1.0-1.7) 0.9 (1.0-1.7) 0.8 (1.0-1.7) Acetaminophen Level 31.9 mcg/ml (10-30) 12.7 mcg/ml (10-30) 6.6 mcg/ml (10-30) Acetaminophen Last Dose Date 06/30/21 06/30/21 Unk Acetaminophen Last Dose Time 399 399 Unk O2 Saturation 99 % (92-99) Arterial Blood pH 7.41 (7.35-7.45) Arterial Blood pCO2 at Patient Temp 37 mmHg (35-46) Arterial Blood pO2 at Patient Temp 149 mmHg (75-108) Arterial Blood HCO3 23 mmol/L (21-28) Arterial Blood Base Excess -1 mmol/L (-3-3) FiO2 40% vent Results All relevant outside records, renal labs, imaging studies, telemetry/EKG's were reviewed. Justicifation of Admission Dx: Justifications for Admission: Justification of Admission Dx: Yes JM GOODMAN MD Jul 02, 2021 09:12
[2021-07-02 09:24] LABS: ACETAMIN 2.51 mcg/ml (10-30); ALBUMIN/GLOBULIN RATIO 0.8 (1.0-1.7); CALCIUM 8.2 mg/dL (8.5-10.1); CREATININE 3.2 mg/dL (0.7-1.3); GFR 21.4; POTASSIUM 3.2 mmol/L (3.5-5.1); TOTAL BILIRUBIN 0.5 mg/dL (0.2-1.0); TOTAL PROTEIN 6.7 g/dL (6.4-8.2)
[2021-07-02] MEDS: PANTOPRAZOLE IV PUSH 40 MG VIAL. IVP SCH (09:34)
[2021-07-02] MEDS: NORMAL SALINE IV SCH (09:34)
[2021-07-02] MEDS: FOMEPIZOLE IV SCH (09:34)
[2021-07-02] MEDS: IV NORMAL SALINE 1000ML BAG 1,000 ML IV SCH ×2 (09:40→21:36)
--- NOTE | 2021-07-02 10:51 | PDOC ---
Date of Service: DATE: 07/02/21 TIME: 10:47 Objective: Objective: D/w nurse - Mucomyst ongoing til acetaminophen level zero. INR 1.4 yesterday. Vital Signs: Vital Signs Date Time Temp Pulse Resp B/P (MAP) Pulse Ox O2 Delivery O2 Flow Rate FiO2 07/02/21 10:00 93 20 120/75 100 Ventilator 07/02/21 08:00 100.1 100.1 Labs: Laboratory Tests Test 07/01/21 12:00 07/01/21 18:15 07/02/21 01:00 07/02/21 07:47 Prothrombin Time 16.3 SEC Prothromb Time International Ratio 1.4 Sodium Level 134 mmol/L 132 mmol/L 127 mmol/L Potassium Level 3.8 mmol/L 3.4 mmol/L 3.3 mmol/L Chloride Level 93 mmol/L 92 mmol/L 90 mmol/L Carbon Dioxide Level 22 mmol/L 22 mmol/L 22 mmol/L Anion Gap 19 18 15 Blood Urea Nitrogen 33 mg/dL 33 mg/dL 31 mg/dL Creatinine 4.0 mg/dL 3.8 mg/dL 3.4 mg/dL Estimated GFR (Cockcroft-Gault) 16.5 17.6 20.0 BUN/Creatinine Ratio 8 9 9 Glucose Level 181 mg/dL 150 mg/dL 155 mg/dL Calcium Level 7.4 mg/dL 7.6 mg/dL 7.7 mg/dL Total Bilirubin 0.3 mg/dL 0.3 mg/dL 0.4 mg/dL Aspartate Amino Transf (AST/SGOT) 27 U/L 25 U/L 27 U/L Alanine Aminotransferase (ALT/SGPT) 77 U/L 80 U/L 75 U/L Alkaline Phosphatase 50 U/L 50 U/L 53 U/L Creatine Kinase 98 U/L Total Protein 6.6 g/dL 6.5 g/dL 6.4 g/dL Albumin 3.2 g/dL 3.1 g/dL 2.9 g/dL Albumin/Globulin Ratio 0.9 0.9 0.8 Acetaminophen Level 31.9 mcg/ml 12.7 mcg/ml 6.6 mcg/ml Acetaminophen Last Dose Date 06/30/21 06/30/21 Unk Acetaminophen Last Dose Time 040 0400 Unk O2 Saturation 99 % Arterial Blood pH 7.41 Arterial Blood pCO2 at Patient Temp 37 mmHg Arterial Blood pO2 at Patient Temp 149 mmHg Arterial Blood HCO3 23 mmol/L Arterial Blood Base Excess -1 mmol/L FiO2 40% vent Test 07/02/21 08:40 Sodium Level 129 mmol/L Potassium Level 3.2 mmol/L Chloride Level 87 mmol/L Carbon Dioxide Level 27 mmol/L Anion Gap 15 Blood Urea Nitrogen 29 mg/dL Creatinine 3.2 mg/dL Estimated GFR (Cockcroft-Gault) 21.4 BUN/Creatinine Ratio 9 Glucose Level 140 mg/dL Calcium Level 8.2 mg/dL Total Bilirubin 0.5 mg/dL Aspartate Amino Transf (AST/SGOT) 26 U/L Alanine Aminotransferase (ALT/SGPT) 80 U/L Alkaline Phosphatase 56 U/L Total Protein 6.7 g/dL Albumin 3.0 g/dL Albumin/Globulin Ratio 0.8 Acetaminophen Level 2.51 mcg/ml Acetaminophen Last Dose Date Unk Acetaminophen Last Dose Time Unk PE: GEN: intubated, guard and nurse present LUNGS: vent/clear HEART: RRR ABD: soft, quiet NEURO/PSYCH: sedated A/P: Acetaminophen overdose - mildly elevated INR and ALT, hepatic steatosis - receiving Mucomyst TRISTIN - persistent -- Continue same per GI. Justicifation of Admission Dx: Justifications for Admission: Justification of Admission Dx: Yes ERIN VAN Jul 02, 2021 10:51
--- NOTE | 2021-07-02 11:38 | PDOC ---
PULMONARY PROGRESS NOTES DATE: 07/02/21 TIME: 11:31 Subjective Patient remains intubated and sedated. Oxygen requirement has improved. Making urine. Vitals Vital Signs Date Time Temp Pulse Resp B/P (MAP) Pulse Ox O2 Delivery O2 Flow Rate FiO2 07/02/21 11:04 98 Ventilator 07/02/21 10:00 93 20 120/75 07/02/21 08:00 100.1 100.1 General: No acute distress Lungs: Clear Cardiovascular: S1 Abdomen: Soft Extremities: No Edema Skin: Warm Labs Laboratory Tests Test 06/30/21 12:15 06/30/21 17:56 07/01/21 00:01 07/01/21 06:15 Sodium Level 143 mmol/L (136-145) 141 mmol/L (136-145) 138 mmol/L (136-145) 138 mmol/L (136-145) Potassium Level 4.3 mmol/L (3.5-5.1) 4.3 mmol/L (3.5-5.1) 4.0 mmol/L (3.5-5.1) 4.1 mmol/L (3.5-5.1) Chloride Level 105 mmol/L (98-107) 102 mmol/L (98-107) 98 mmol/L (98-107) 96 mmol/L (98-107) Carbon Dioxide Level 23 mmol/L (21-32) 20 mmol/L (21-32) 21 mmol/L (21-32) 20 mmol/L (21-32) Anion Gap 15 (6-14) 19 (6-14) 19 (6-14) 22 (6-14) Blood Urea Nitrogen 17 mg/dL (8-26) 19 mg/dL (8-26) 24 mg/dL (8-26) 31 mg/dL (8-26) Creatinine 1.7 mg/dL (0.7-1.3) 2.1 mg/dL (0.7-1.3) 3.1 mg/dL (0.7-1.3) 3.5 mg/dL (0.7-1.3) Estimated GFR (Cockcroft-Gault) 44.4 34.8 22.2 19.3 BUN/Creatinine Ratio 10 (6-20) 9 (6-20) 8 (6-20) 9 (6-20) Glucose Level 113 mg/dL (70-99) 121 mg/dL (70-99) 148 mg/dL (70-99) 130 mg/dL (70-99) Calcium Level 8.2 mg/dL (8.5-10.1) 8.2 mg/dL (8.5-10.1) 8.0 mg/dL (8.5-10.1) 7.9 mg/dL (8.5-10.1) Total Bilirubin 0.7 mg/dL (0.2-1.0) 0.6 mg/dL (0.2-1.0) 0.4 mg/dL (0.2-1.0) 0.4 mg/dL (0.2-1.0) Aspartate Amino Transf (AST/SGOT) 29 U/L (15-37) 32 U/L (15-37) 34 U/L (15-37) 30 U/L (15-37) Alanine Aminotransferase (ALT/SGPT) 59 U/L (16-63) 74 U/L (16-63) 75 U/L (16-63) 85 U/L (16-63) Alkaline Phosphatase 53 U/L (46-116) 58 U/L (46-116) 55 U/L (46-116) 58 U/L (46-116) Total Protein 6.4 g/dL (6.4-8.2) 6.7 g/dL (6.4-8.2) 7.2 g/dL (6.4-8.2) 7.0 g/dL (6.4-8.2) Albumin 3.5 g/dL (3.4-5.0) 3.6 g/dL (3.4-5.0) 3.7 g/dL (3.4-5.0) 3.6 g/dL (3.4-5.0) Albumin/Globulin Ratio 1.2 (1.0-1.7) 1.2 (1.0-1.7) 1.1 (1.0-1.7) 1.1 (1.0- 1.7) Acetaminophen Level 249.73 mcg/ml (10-30) 180.74 mcg/ml (10-30) 104.2 mcg/ml (10-30) 50.39 mcg/ml (10-30) Acetaminophen Last Dose Date 06/30/21 Unknown Unk 06/30/21 Acetaminophen Last Dose Time 0400 Unknown Unk 0400 White Blood Count 25.5 x10^3/uL (4.0-11.0) Red Blood Count 5.93 x10^6/uL (4.30-5.70) Hemoglobin 17.7 g/dL (13.0-17.5) Hematocrit 53.1 % (39.0-53.0) Mean Corpuscular Volume 90 fL (79-100) Mean Corpuscular Hemoglobin 30 pg (25-35) Mean Corpuscular Hemoglobin Concent 33 g/dL (31-37) Red Cell Distribution Width 14.2 % (11.5-14.5) Platelet Count 268 x10^3/uL (140-400) Neutrophils (%) (Auto) 85 % (31-73) Lymphocytes (%) (Auto) 7 % (24-48) Monocytes (%) (Auto) 8 % (0-9) Eosinophils (%) (Auto) 0 % (0-3) Basophils (%) (Auto) 0 % (0-3) Neutrophils # (Auto) 21.6 x10^3/uL (1.8-7.7) Lymphocytes # (Auto) 1.7 x10^3/uL (1.0-4.8) Monocytes # (Auto) 2.1 x10^3/uL (0.0-1.1) Eosinophils # (Auto) 0.0 x10^3/uL (0.0-0.7) Basophils # (Auto) 0.1 x10^3/uL (0.0-0.2) Segmented Neutrophils % 93 % (35-66) Lymphocytes % 5 % (24-48) Monocytes % 2 % (0-10) Platelet Estimate Adequate (ADEQUATE) Test 07/01/21 07:34 07/01/21 12:00 07/01/21 18:15 07/02/21 01:00 O2 Saturation 99 % (92-99) Arterial Blood pH 7.29 (7.35-7.45) Arterial Blood pCO2 at Patient Temp 37 mmHg (35-46) Arterial Blood pO2 at Patient Temp 169 mmHg (75-108) Arterial Blood HCO3 17 mmol/L (21-28) Arterial Blood Base Excess -8 mmol/L (-3-3) FiO2 40% vent Prothrombin Time 16.3 SEC (11.7-14.0) Prothromb Time International Ratio 1.4 (0.8-1.1) Sodium Level 134 mmol/L (136-145) 132 mmol/L (136-145) 127 mmol/L (136-145) Potassium Level 3.8 mmol/L (3.5-5.1) 3.4 mmol/L (3.5-5.1) 3.3 mmol/L (3.5-5.1) Chloride Level 93 mmol/L (98-107) 92 mmol/L (98-107) 90 mmol/L (98-107) Carbon Dioxide Level 22 mmol/L (21-32) 22 mmol/L (21-32) 22 mmol/L (21-32) Anion Gap 19 (6-14) 18 (6-14) 15 (6-14) Blood Urea Nitrogen 33 mg/dL (8-26) 33 mg/dL (8-26) 31 mg/dL (8-26) Creatinine 4.0 mg/dL (0.7-1.3) 3.8 mg/dL (0.7-1.3) 3.4 mg/dL (0.7-1.3) Estimated GFR (Cockcroft-Gault) 16.5 17.6 20.0 BUN/Creatinine Ratio 8 (6-20) 9 (6-20) 9 (6-20) Glucose Level 181 mg/dL (70-99) 150 mg/dL (70-99) 155 mg/dL (70-99) Calcium Level 7.4 mg/dL (8.5-10.1) 7.6 mg/dL (8.5-10.1) 7.7 mg/dL (8.5-10.1) Total Bilirubin 0.3 mg/dL (0.2-1.0) 0.3 mg/dL (0.2-1.0) 0.4 mg/dL (0.2-1.0) Aspartate Amino Transf (AST/SGOT) 27 U/L (15-37) 25 U/L (15-37) 27 U/L (15-37) Alanine Aminotransferase (ALT/SGPT) 77 U/L (16-63) 80 U/L (16-63) 75 U/L (16-63) Alkaline Phosphatase 50 U/L (46-116) 50 U/L (46-116) 53 U/L (46-116) Creatine Kinase 98 U/L (39-308) Total Protein 6.6 g/dL (6.4-8.2) 6.5 g/dL (6.4-8.2) 6.4 g/dL (6.4-8.2) Albumin 3.2 g/dL (3.4-5.0) 3.1 g/dL (3.4-5.0) 2.9 g/dL (3.4-5.0) Albumin/Globulin Ratio 0.9 (1.0-1.7) 0.9 (1.0-1.7) 0.8 (1.0-1.7) Acetaminophen Level 31.9 mcg/ml (10-30) 12.7 mcg/ml (10-30) 6.6 mcg/ml (10-30) Acetaminophen Last Dose Date 06/30/21 06/30/21 Unk Acetaminophen Last Dose Time 399 399 Unk Test 07/02/21 07:47 07/02/21 08:40 O2 Saturation 99 % (92-99) Arterial Blood pH 7.41 (7.35-7.45) Arterial Blood pCO2 at Patient Temp 37 mmHg (35-46) Arterial Blood pO2 at Patient Temp 149 mmHg (75-108) Arterial Blood HCO3 23 mmol/L (21-28) Arterial Blood Base Excess -1 mmol/L (-3-3) FiO2 40% vent Sodium Level 129 mmol/L (136-145) Potassium Level 3.2 mmol/L (3.5-5.1) Chloride Level 87 mmol/L (98-107) Carbon Dioxide Level 27 mmol/L (21-32) Anion Gap 15 (6-14) Blood Urea Nitrogen 29 mg/dL (8-26) Creatinine 3.2 mg/dL (0.7-1.3) Estimated GFR (Cockcroft-Gault) 21.4 BUN/Creatinine Ratio 9 (6-20) Glucose Level 140 mg/dL (70-99) Calcium Level 8.2 mg/dL (8.5-10.1) Total Bilirubin 0.5 mg/dL (0.2-1.0) Aspartate Amino Transf (AST/SGOT) 26 U/L (15-37) Alanine Aminotransferase (ALT/SGPT) 80 U/L (16-63) Alkaline Phosphatase 56 U/L (46-116) Total Protein 6.7 g/dL (6.4-8.2) Albumin 3.0 g/dL (3.4-5.0) Albumin/Globulin Ratio 0.8 (1.0-1.7) Acetaminophen Level 2.51 mcg/ml (10-30) Acetaminophen Last Dose Date Unk Acetaminophen Last Dose Time Unk Laboratory Tests Test 07/01/21 12:00 07/01/21 18:15 07/02/21 01:00 07/02/21 07:47 Prothrombin Time 16.3 SEC (11.7-14.0) Prothromb Time International Ratio 1.4 (0.8-1.1) Sodium Level 134 mmol/L (136-145) 132 mmol/L (136-145) 127 mmol/L (136-145) Potassium Level 3.8 mmol/L (3.5-5.1) 3.4 mmol/L (3.5-5.1) 3.3 mmol/L (3.5-5.1) Chloride Level 93 mmol/L (98-107) 92 mmol/L (98-107) 90 mmol/L (98-107) Carbon Dioxide Level 22 mmol/L (21-32) 22 mmol/L (21-32) 22 mmol/L (21-32) Anion Gap 19 (6-14) 18 (6-14) 15 (6-14) Blood Urea Nitrogen 33 mg/dL (8-26) 33 mg/dL (8-26) 31 mg/dL (8-26) Creatinine 4.0 mg/dL (0.7-1.3) 3.8 mg/dL (0.7-1.3) 3.4 mg/dL (0.7-1.3) Estimated GFR (Cockcroft-Gault) 16.5 17.6 20.0 BUN/Creatinine Ratio 8 (6-20) 9 (6-20) 9 (6-20) Glucose Level 181 mg/dL (70-99) 150 mg/dL (70-99) 155 mg/dL (70-99) Calcium Level 7.4 mg/dL (8.5-10.1) 7.6 mg/dL (8.5-10.1) 7.7 mg/dL (8.5-10.1) Total Bilirubin 0.3 mg/dL (0.2-1.0) 0.3 mg/dL (0.2-1.0) 0.4 mg/dL (0.2-1.0) Aspartate Amino Transf (AST/SGOT) 27 U/L (15-37) 25 U/L (15-37) 27 U/L (15-37) Alanine Aminotransferase (ALT/SGPT) 77 U/L (16-63) 80 U/L (16-63) 75 U/L (16-63) Alkaline Phosphatase 50 U/L (46-116) 50 U/L (46-116) 53 U/L (46-116) Creatine Kinase 98 U/L (39-308) Total Protein 6.6 g/dL (6.4-8.2) 6.5 g/dL (6.4-8.2) 6.4 g/dL (6.4-8.2) Albumin 3.2 g/dL (3.4-5.0) 3.1 g/dL (3.4-5.0) 2.9 g/dL (3.4-5.0) Albumin/Globulin Ratio 0.9 (1.0-1.7) 0.9 (1.0-1.7) 0.8 (1.0-1.7) Acetaminophen Level 31.9 mcg/ml (10-30) 12.7 mcg/ml (10-30) 6.6 mcg/ml (10-30) Acetaminophen Last Dose Date 06/30/21 06/30/21 Unk Acetaminophen Last Dose Time 399 0400 Unk O2 Saturation 99 % (92-99) Arterial Blood pH 7.41 (7.35-7.45) Arterial Blood pCO2 at Patient Temp 37 mmHg (35-46) Arterial Blood pO2 at Patient Temp 149 mmHg (75-108) Arterial Blood HCO3 23 mmol/L (21-28) Arterial Blood Base Excess -1 mmol/L (-3-3) FiO2 40% vent Test 07/02/21 08:40 Sodium Level 129 mmol/L (136-145) Potassium Level 3.2 mmol/L (3.5-5.1) Chloride Level 87 mmol/L (98-107) Carbon Dioxide Level 27 mmol/L (21-32) Anion Gap 15 (6-14) Blood Urea Nitrogen 29 mg/dL (8-26) Creatinine 3.2 mg/dL (0.7-1.3) Estimated GFR (Cockcroft-Gault) 21.4 BUN/Creatinine Ratio 9 (6-20) Glucose Level 140 mg/dL (70-99) Calcium Level 8.2 mg/dL (8.5-10.1) Total Bilirubin 0.5 mg/dL (0.2-1.0) Aspartate Amino Transf (AST/SGOT) 26 U/L (15-37) Alanine Aminotransferase (ALT/SGPT) 80 U/L (16-63) Alkaline Phosphatase 56 U/L (46-116) Total Protein 6.7 g/dL (6.4-8.2) Albumin 3.0 g/dL (3.4-5.0) Albumin/Globulin Ratio 0.8 (1.0-1.7) Acetaminophen Level 2.51 mcg/ml (10-30) Acetaminophen Last Dose Date Unk Acetaminophen Last Dose Time Unk Impression . 1. Acute respiratory failure secondary to acetaminophen overdose. He was also positive for meth. 2. Acute toxic encephalopathy. 3. Metabolic acidosis related to acetaminophen overdose and ATN. 4. Abnormal liver function test. 5. Acute kidney injury. 6. Lactic acidosis. 7. Mildly increased INR of 1.5. Needs to watch for any worsening coagulopathy related to acetaminophen overdose. 8. Abnormal chest x-ray with endotracheal tube at the opening of the right main stem bronchus. Repeat chest x-ray ordered. Plan . RECOMMENDATIONS: 1. Discussed with RN and RT. We will continue with present assist control mode. ABGs have improved. 2. Bicarb drip per renal. Level has improved. 3. Monitor liver function test 4. Monitor INR . So far stable. 5. Continue N-acetylcysteine per protocol. 6. Discussed with renal. No plans for dialysis at present. Continue to monitor renal function. 7. Fomepizole given per poison control recommendation.. 8. DVT prophylaxis with heparin. INR remained stable. 9. Once the acetaminophen level back to 0, will stop sedation and assess mental status and consider weaning trial. Discussed with RN and RT. Critical care time 30 minutes HARLEY MOFFETT MD Jul 02, 2021 11:38
[2021-07-02 13:13] LABS: PROTHROMBIN TIME PATIENT 14.9 SEC (11.7-14.0)
[2021-07-02 13:30] LABS: ALBUMIN 2.7 g/dL (3.4-5.0); DIRECT BILIRUBIN 0.1 mg/dL (0.0-0.2); TOTAL BILIRUBIN 0.8 mg/dL (0.2-1.0); TOTAL PROTEIN 6.3 g/dL (6.4-8.2)
[2021-07-02 13:37] LABS: ACETAMIN < 2 mcg/ml (10-30)
--- NOTE | 2021-07-02 13:47 | RAD ---
Single view of the chest. 07/02/2021 12:32 PM Indication: Respiratory failure Comparison: Chest radiograph, June 30, 2021 Findings: There is an endotracheal tube in place approximately 5 cm above the ayanna. There is an ent harinder tube extending into the proximal stomach. No pneumothorax, effusion, or focal infiltrates are id entified. Heart size is normal. No acute osseous changes are identified. IMPRESSION: 1.Support lines and tubes as described. 2. No radiographic evidence of acute cardiopulmonary process Electronically signed by: Jamil Stveen MD (07/02/2021 1:44 PM) [id number]
[2021-07-03] VITALS (23 sets, daily range): BP systolic 94–156; BP diastolic 55–89
[2021-07-03] MEDS: PROPOFOL 100 ML IV PRN ×3 (00:51→06:42)
[2021-07-03 05:39] LABS: ALBUMIN 2.8 g/dL (3.4-5.0); ALBUMIN/GLOBULIN RATIO 0.8 (1.0-1.7); CALCIUM 8.1 mg/dL (8.5-10.1); CREATININE 1.8 mg/dL (0.7-1.3); GFR 41.6; POTASSIUM 3.2 mmol/L (3.5-5.1); TOTAL BILIRUBIN 0.6 mg/dL (0.2-1.0); TOTAL PROTEIN 6.3 g/dL (6.4-8.2)
[2021-07-03] MEDS: HEPARIN for SUB-Q USE 5,000 UNIT/ML VIAL. SQ SCH ×3 (05:46→22:12)
[2021-07-03 05:51] LABS: BASO % 0 % (0-3); EOS # 0.2 x10^3/uL (0.0-0.7); EOS % 1 % (0-3); HEMATOCRIT 39.8 % (39.0-53.0); HEMOGLOBIN 14.1 g/dL (13.0-17.5); LYMPH # 0.9 x10^3/uL (1.0-4.8); LYMPH % 6 % (24-48); MEAN CORPUSCULAR HEMOGLOBIN 31 pg (25-35); MEAN CORPUSCULAR HGB CONC 35 g/dL (31-37); MEAN CORPUSCULAR VOLUME 87 fL (79-100); MONO # 1.7 x10^3/uL (0.0-1.1); MONO % 11 % (0-9); NEUT # 12.4 x10^3/uL (1.8-7.7); NEUT % 82 % (31-73); PLATELET COUNT 154 x10^3/uL (140-400); RED BLOOD COUNT 4.58 x10^6/uL (4.30-5.70); RED CELL DISTRIBUTION WIDTH 13.8 % (11.5-14.5); WHITE BLOOD COUNT 15.1 x10^3/uL (4.0-11.0)
[2021-07-03 06:11] LABS: PROTHROMBIN TIME PATIENT 14.3 SEC (11.7-14.0)
--- NOTE | 2021-07-03 08:18 | PDOC ---
[facility] PROGRESS NOTE Date of Service DOS: DATE: 07/03/21 TIME: 08:16 Chief Complaint Chief Complaint Acute encephalopathy - metabolic, likely due to medication overdose, possibly also with amphetamine toxicity Acetaminophen overdose -unclear if intentional or not. On N-acetylcysteine 2 bag protocol (200 mg/kg mag 1 and 6.25 mg/kg hourly for 16 hours) given within 8 hours. Poison control recommended addition of fomepizole as well, given x1. Improved Metabolic acidosis - likely lactic acid related with some acute acetaminophen poisoning, will trend. Bicarb per ED and pulmonology Chronic osteoarthritis pain -if acetaminophen negative and ibuprofen are given to the future would recommend to dose pill packs daily. Seizures - [facility], resolved TRISTIN - no renal dysfunction, likely vasomotor nephropathy. Will obtain non- contrast abdominal imaging to r/o obstructive uropathy vs medical renal disease Lactic acidosis - likely related to acetaminophen OD, will trend Amphetamine positive - unclear if intoxicated Borderline personality disorder -not on meds Hyperglycemia - A1c 5.5, no DM history hyponatremia - possibly hypervolemic FEN - NPO, OGT PPX - heparin FULL CODE Dispo - ICU cc time 33 min History of Present Illness History of Present Illness Mr Alarcon is a 40yo male w/ PMHx chronic osteoarthritis pain, seizure, borderline personality disorder who is an [facility] and concern for overdose. History obtained from ED paperwork and from [place] [employer] officers. He was found on morning wellness check this morning prior to 0400 laying in a pile of vomit with suspicion patient had taken #420 of 325 mg of acetaminophen. He has been incarcerated since 2005 per corrections officers. Labs at 0449 NA 142, K3 point delayed, BUN 14 CR 1.5, anion gap 22, glucose 243, lactic acid 5.3, calcium 7.6, bilirubin 0.3, AST 23, ALT 45, alkaline phosphatase 52, albumin 3.4, acetaminophen level 383.8, salicylates 1.2, urine drug screen positive for amphetamines, urinalysis bland with glucosuria and ketonuria. Patient was notably somnolent, drooling with brown emesis, confused in ED, barley answering to his name, and was assessed as not protecting his airway ED physician elected to intubate patient. Chest radiograph with ET tube near ayanna gastric tube overlying gastric bubble below the diaphragm. No other abnormalities on CXR on my interpretation. Initial ABG 7.245/38.9/136.4 Repeat ABG 7.221/31.5/161 on AC mode 40 breaths/min per tidal volume 450 PEEP of 5 FiO2 40% 07/01: Seen on vent AC mode PEEP 5 FiO2 40%, ABG pH 7.29 this morning. Creatinine climbing to 3.5, urine output 5.7 L last 24 hours. ALT 85 now, INR 1.5. Acetaminophen level 50. CBC pending, CT abdomen/pelvis ordered. started on free water. 07/02: On vent AC mode PEEP 5 FiO2 40% with O2 saturations 90%. Creatinine still not improving. INR 1.4. Repeat morning labs pending acetaminophen level was 6.6 admit overnight planned continue Mucomyst until level is 0. Abdominal ultrasound with no renal disease or obstruction noted but diffuse hepatic steatosis noted. 07/03: WBC down to 15 NA 129, K3.2, CR improved to 1.8 albumin 2.8, INR 1.1, acetaminophen level was 0 as of 12:30 PM on 07/02/2021. Still seen on ventilator AC mode 40% FiO2 PEEP of 5 saturations 91%. Off Mucomyst. Discussed plan to extubate potentially today we will attempt vent wean. Vitals/I&O Vitals/I&O: Vital Signs Date Time Temp Pulse Resp B/P (MAP) Pulse Ox O2 Delivery O2 Flow Rate FiO2 07/03/21 06:00 102 20 127/71 99 Ventilator 07/03/21 04:00 99.9 99.9 I & O 07/02/21 07/02/21 07/03/21 15:00 23:00 07:00 Intake Total 2265 ml 2725 ml 2858 ml Output Total 1320 ml 2785 ml 1665 ml Balance 945 ml -60 ml 1193 ml Physical Exam General: Other (Sedated on ventilator) Lungs: Clear Abdomen: Normal bowel sounds, Soft, No tenderness, No hepatosplenomegaly, No masses Extremities: No clubbing, No cyanosis, No edema, Normal pulses, No tenderness/swelling Skin: No rashes, No breakdown, No significant lesion Labs Labs: Laboratory Tests Test 07/02/21 08:40 07/02/21 12:30 4/30/22 04:30 Sodium Level 129 mmol/L (136-145) 129 mmol/L (136-145) Potassium Level 3.2 mmol/L (3.5-5.1) 3.2 mmol/L (3.5-5.1) Chloride Level 87 mmol/L (98-107) 97 mmol/L (98-107) Carbon Dioxide Level 27 mmol/L (21-32) 26 mmol/L (21-32) Anion Gap 15 (6-14) 6 (6-14) Blood Urea Nitrogen 29 mg/dL (8-26) 20 mg/dL (8-26) Creatinine 3.2 mg/dL (0.7-1.3) 1.8 mg/dL (0.7-1.3) Estimated GFR (Cockcroft-Gault) 21.4 41.6 BUN/Creatinine Ratio 9 (6-20) 11 (6-20) Glucose Level 140 mg/dL (70-99) 121 mg/dL (70-99) Calcium Level 8.2 mg/dL (8.5-10.1) 8.1 mg/dL (8.5-10.1) Total Bilirubin 0.5 mg/dL (0.2-1.0) 0.8 mg/dL (0.2-1.0) 0.6 mg/dL (0.2-1.0) Aspartate Amino Transf (AST/SGOT) 26 U/L (15-37) 28 U/L (15-37) 23 U/L (15-37) Alanine Aminotransferase (ALT/SGPT) 80 U/L (16-63) 77 U/L (16-63) 53 U/L (16-63) Alkaline Phosphatase 56 U/L (46-116) 53 U/L (46-116) 51 U/L (46-116) Total Protein 6.7 g/dL (6.4-8.2) 6.3 g/dL (6.4-8.2) 6.3 g/dL (6.4-8.2) Albumin 3.0 g/dL (3.4-5.0) 2.7 g/dL (3.4-5.0) 2.8 g/dL (3.4-5.0) Albumin/Globulin Ratio 0.8 (1.0-1.7) 0.8 (1.0-1.7) Acetaminophen Level 2.51 mcg/ml (10-30) < 2 mcg/ml (10-30) Acetaminophen Last Dose Date Unk 06/30/2021 Acetaminophen Last Dose Time Unk 020 Prothrombin Time 14.9 SEC (11.7-14.0) 14.3 SEC (11.7-14.0) Prothromb Time International Ratio 1.2 (0.8-1.1) 1.1 (0.8-1.1) Direct Bilirubin 0.1 mg/dL (0.0-0.2) White Blood Count 15.1 x10^3/uL (4.0-11.0) Red Blood Count 4.58 x10^6/uL (4.30-5.70) Hemoglobin 14.1 g/dL (13.0-17.5) Hematocrit 39.8 % (39.0-53.0) Mean Corpuscular Volume 87 fL (79-100) Mean Corpuscular Hemoglobin 31 pg (25-35) Mean Corpuscular Hemoglobin Concent 35 g/dL (31-37) Red Cell Distribution Width 13.8 % (11.5-14.5) Platelet Count 154 x10^3/uL (140-400) Neutrophils (%) (Auto) 82 % (31-73) Lymphocytes (%) (Auto) 6 % (24-48) Monocytes (%) (Auto) 11 % (0-9) Eosinophils (%) (Auto) 1 % (0-3) Basophils (%) (Auto) 0 % (0-3) Neutrophils # (Auto) 12.4 x10^3/uL (1.8-7.7) Lymphocytes # (Auto) 0.9 x10^3/uL (1.0-4.8) Monocytes # (Auto) 1.7 x10^3/uL (0.0-1.1) Eosinophils # (Auto) 0.2 x10^3/uL (0.0-0.7) Basophils # (Auto) 0.0 x10^3/uL (0.0-0.2) Assessment and Plan Assessmemt and Plan Problems Medical Problems: (1) Acetaminophen overdose Status: Acute Comment Review of Relevant I have reviewed the following items cherelle (where applicable) has been applied. Medications: Current Medications Medications (Trade) Dose Ordered Sig/Danielito Route PRN Reason Start Time Stop Time Status Last Admin Dose Admin Sodium Chloride 1,000 ml @ 75 mls/hr [id number] IV 07/02/21 09:15 07/02/21 21:36 Justifications for Admission Other Justification PILAR CONWAY MD Jul 03, 2021 08:18
[2021-07-03] MEDS ORDERED: POTASSIUM BICARB 20 MEQ EFFERVESCENT TABLET. PEG ONE (08:30)
[2021-07-03 08:33] LABS: BASE EXCESS ABG -1 mmol/L (-3-3); HCO3 ABG 24 mmol/L (21-28); PCO2 ABG 37 mmHg (35-46); PO2 ABG 160 mmHg (75-108); SAT O2 ABG 99 % (92-99)
[2021-07-03 08:35] LABS: FIO2 ABG 40
[2021-07-03] MEDS: PANTOPRAZOLE IV PUSH 40 MG VIAL. IVP SCH (09:12)
--- NOTE | 2021-07-03 10:09 | PDOC ---
PULMONARY PROGRESS NOTES DATE: 07/03/21 TIME: 10:07 Subjective Patient remains intubated. Low-dose propofol. Oxygen requirement has improved. Making urine. Vitals Vital Signs Date Time Temp Pulse Resp B/P (MAP) Pulse Ox O2 Delivery O2 Flow Rate FiO2 07/03/21 08:15 99 Ventilator 07/03/21 06:00 102 20 127/71 07/03/21 04:00 99.9 99.9 Comments Opens eyes to commands. General: No acute distress Lungs: Clear Cardiovascular: S1 Abdomen: Soft Extremities: No Edema Skin: Warm Labs Laboratory Tests Test 07/01/21 12:00 07/01/21 18:15 07/02/21 01:00 07/02/21 07:47 Prothrombin Time 16.3 SEC (11.7-14.0) Prothromb Time International Ratio 1.4 (0.8-1.1) Sodium Level 134 mmol/L (136-145) 132 mmol/L (136-145) 127 mmol/L (136-145) Potassium Level 3.8 mmol/L (3.5-5.1) 3.4 mmol/L (3.5-5.1) 3.3 mmol/L (3.5-5.1) Chloride Level 93 mmol/L (98-107) 92 mmol/L (98-107) 90 mmol/L (98-107) Carbon Dioxide Level 22 mmol/L (21-32) 22 mmol/L (21-32) 22 mmol/L (21-32) Anion Gap 19 (6-14) 18 (6-14) 15 (6-14) Blood Urea Nitrogen 33 mg/dL (8-26) 33 mg/dL (8-26) 31 mg/dL (8-26) Creatinine 4.0 mg/dL (0.7-1.3) 3.8 mg/dL (0.7-1.3) 3.4 mg/dL (0.7-1.3) Estimated GFR (Cockcroft-Gault) 16.5 17.6 20.0 BUN/Creatinine Ratio 8 (6-20) 9 (6-20) 9 (6-20) Glucose Level 181 mg/dL (70-99) 150 mg/dL (70-99) 155 mg/dL (70-99) Calcium Level 7.4 mg/dL (8.5-10.1) 7.6 mg/dL (8.5-10.1) 7.7 mg/dL (8.5-10.1) Total Bilirubin 0.3 mg/dL (0.2-1.0) 0.3 mg/dL (0.2-1.0) 0.4 mg/dL (0.2-1.0) Aspartate Amino Transf (AST/SGOT) 27 U/L (15-37) 25 U/L (15-37) 27 U/L (15-37) Alanine Aminotransferase (ALT/SGPT) 77 U/L (16-63) 80 U/L (16-63) 75 U/L (16-63) Alkaline Phosphatase 50 U/L (46-116) 50 U/L (46-116) 53 U/L (46-116) Creatine Kinase 98 U/L (39-308) Total Protein 6.6 g/dL (6.4-8.2) 6.5 g/dL (6.4-8.2) 6.4 g/dL (6.4-8.2) Albumin 3.2 g/dL (3.4-5.0) 3.1 g/dL (3.4-5.0) 2.9 g/dL (3.4-5.0) Albumin/Globulin Ratio 0.9 (1.0-1.7) 0.9 (1.0-1.7) 0.8 (1.0-1.7) Acetaminophen Level 31.9 mcg/ml (10-30) 12.7 mcg/ml (10-30) 6.6 mcg/ml (10-30) Acetaminophen Last Dose Date 06/30/21 06/30/21 Unk Acetaminophen Last Dose Time 399 0400 Unk O2 Saturation 99 % (92-99) Arterial Blood pH 7.41 (7.35-7.45) Arterial Blood pCO2 at Patient Temp 37 mmHg (35-46) Arterial Blood pO2 at Patient Temp 149 mmHg (75-108) Arterial Blood HCO3 23 mmol/L (21-28) Arterial Blood Base Excess -1 mmol/L (-3-3) FiO2 40% vent Test 07/02/21 08:40 07/02/21 12:30 07/03/21 04:07/03/21 08:25 Sodium Level 129 mmol/L (136-145) 129 mmol/L (136-145) Potassium Level 3.2 mmol/L (3.5-5.1) 3.2 mmol/L (3.5-5.1) Chloride Level 87 mmol/L (98-107) 97 mmol/L (98-107) Carbon Dioxide Level 27 mmol/L (21-32) 26 mmol/L (21-32) Anion Gap 15 (6-14) 6 (6-14) Blood Urea Nitrogen 29 mg/dL (8-26) 20 mg/dL (8-26) Creatinine 3.2 mg/dL (0.7-1.3) 1.8 mg/dL (0.7-1.3) Estimated GFR (Cockcroft-Gault) 21.4 41.6 BUN/Creatinine Ratio 9 (6-20) 11 (6-20) Glucose Level 140 mg/dL (70-99) 121 mg/dL (70-99) Calcium Level 8.2 mg/dL (8.5-10.1) 8.1 mg/dL (8.5-10.1) Total Bilirubin 0.5 mg/dL (0.2-1.0) 0.8 mg/dL (0.2-1.0) 0.6 mg/dL (0.2-1.0) Aspartate Amino Transf (AST/SGOT) 26 U/L (15-37) 28 U/L (15-37) 23 U/L (15-37) Alanine Aminotransferase (ALT/SGPT) 80 U/L (16-63) 77 U/L (16-63) 53 U/L (16-63) Alkaline Phosphatase 56 U/L (46-116) 53 U/L (46-116) 51 U/L (46-116) Total Protein 6.7 g/dL (6.4-8.2) 6.3 g/dL (6.4-8.2) 6.3 g/dL (6.4-8.2) Albumin 3.0 g/dL (3.4-5.0) 2.7 g/dL (3.4-5.0) 2.8 g/dL (3.4-5.0) Albumin/Globulin Ratio 0.8 (1.0-1.7) 0.8 (1.0-1.7) Acetaminophen Level 2.51 mcg/ml (10-30) < 2 mcg/ml (10-30) Acetaminophen Last Dose Date Unk 06/30/2021 Acetaminophen Last Dose Time Unk 0200 Prothrombin Time 14.9 SEC (11.7-14.0) 14.3 SEC (11.7-14.0) Prothromb Time International Ratio 1.2 (0.8-1.1) 1.1 (0.8-1.1) Direct Bilirubin 0.1 mg/dL (0.0-0.2) White Blood Count 15.1 x10^3/uL (4.0-11.0) Red Blood Count 4.58 x10^6/uL (4.30-5.70) Hemoglobin 14.1 g/dL (13.0-17.5) Hematocrit 39.8 % (39.0-53.0) Mean Corpuscular Volume 87 fL (79-100) Mean Corpuscular Hemoglobin 31 pg (25-35) Mean Corpuscular Hemoglobin Concent 35 g/dL (31-37) Red Cell Distribution Width 13.8 % (11.5-14.5) Platelet Count 154 x10^3/uL (140-400) Neutrophils (%) (Auto) 82 % (31-73) Lymphocytes (%) (Auto) 6 % (24-48) Monocytes (%) (Auto) 11 % (0-9) Eosinophils (%) (Auto) 1 % (0-3) Basophils (%) (Auto) 0 % (0-3) Neutrophils # (Auto) 12.4 x10^3/uL (1.8-7.7) Lymphocytes # (Auto) 0.9 x10^3/uL (1.0-4.8) Monocytes # (Auto) 1.7 x10^3/uL (0.0-1.1) Eosinophils # (Auto) 0.2 x10^3/uL (0.0-0.7) Basophils # (Auto) 0.0 x10^3/uL (0.0-0.2) O2 Saturation 99 % (92-99) Arterial Blood pH 7.42 (7.35-7.45) Arterial Blood pCO2 at Patient Temp 37 mmHg (35-46) Arterial Blood pO2 at Patient Temp 160 mmHg (75-108) Arterial Blood HCO3 24 mmol/L (21-28) Arterial Blood Base Excess -1 mmol/L (-3-3) FiO2 40 Laboratory Tests Test 07/02/21 12:30 07/03/21 04:30 07/03/21 08:25 Prothrombin Time 14.9 SEC (11.7-14.0) 14.3 SEC (11.7-14.0) Prothromb Time International Ratio 1.2 (0.8-1.1) 1.1 (0.8-1.1) Total Bilirubin 0.8 mg/dL (0.2-1.0) 0.6 mg/dL (0.2-1.0) Direct Bilirubin 0.1 mg/dL (0.0-0.2) Aspartate Amino Transf (AST/SGOT) 28 U/L (15-37) 23 U/L (15-37) Alanine Aminotransferase (ALT/SGPT) 77 U/L (16-63) 53 U/L (16-63) Alkaline Phosphatase 53 U/L (46-116) 51 U/L (46-116) Total Protein 6.3 g/dL (6.4-8.2) 6.3 g/dL (6.4-8.2) Albumin 2.7 g/dL (3.4-5.0) 2.8 g/dL (3.4-5.0) Acetaminophen Level < 2 mcg/ml (10-30) Acetaminophen Last Dose Date 06/30/2021 Acetaminophen Last Dose Time 0200 White Blood Count 15.1 x10^3/uL (4.0-11.0) Red Blood Count 4.58 x10^6/uL (4.30-5.70) Hemoglobin 14.1 g/dL (13.0-17.5) Hematocrit 39.8 % (39.0-53.0) Mean Corpuscular Volume 87 fL (79-100) Mean Corpuscular Hemoglobin 31 pg (25-35) Mean Corpuscular Hemoglobin Concent 35 g/dL (31-37) Red Cell Distribution Width 13.8 % (11.5-14.5) Platelet Count 154 x10^3/uL (140-400) Neutrophils (%) (Auto) 82 % (31-73) Lymphocytes (%) (Auto) 6 % (24-48) Monocytes (%) (Auto) 11 % (0-9) Eosinophils (%) (Auto) 1 % (0-3) Basophils (%) (Auto) 0 % (0-3) Neutrophils # (Auto) 12.4 x10^3/uL (1.8-7.7) Lymphocytes # (Auto) 0.9 x10^3/uL (1.0-4.8) Monocytes # (Auto) 1.7 x10^3/uL (0.0-1.1) Eosinophils # (Auto) 0.2 x10^3/uL (0.0-0.7) Basophils # (Auto) 0.0 x10^3/uL (0.0-0.2) Sodium Level 129 mmol/L (136-145) Potassium Level 3.2 mmol/L (3.5-5.1) Chloride Level 97 mmol/L (98-107) Carbon Dioxide Level 26 mmol/L (21-32) Anion Gap 6 (6-14) Blood Urea Nitrogen 20 mg/dL (8-26) Creatinine 1.8 mg/dL (0.7-1.3) Estimated GFR (Cockcroft-Gault) 41.6 BUN/Creatinine Ratio 11 (6-20) Glucose Level 121 mg/dL (70-99) Calcium Level 8.1 mg/dL (8.5-10.1) Albumin/Globulin Ratio 0.8 (1.0-1.7) O2 Saturation 99 % (92-99) Arterial Blood pH 7.42 (7.35-7.45) Arterial Blood pCO2 at Patient Temp 37 mmHg (35-46) Arterial Blood pO2 at Patient Temp 160 mmHg (75-108) Arterial Blood HCO3 24 mmol/L (21-28) Arterial Blood Base Excess -1 mmol/L (-3-3) FiO2 40 Impression . 1. Acute respiratory failure secondary to acetaminophen overdose. He was also positive for meth. 2. Acute toxic encephalopathy. 3. Metabolic acidosis related to acetaminophen overdose and ATN. 4. Abnormal liver function test. 5. Acute kidney injury. 6. Lactic acidosis. 7. Mildly increased INR of 1.5. Needs to watch for any worsening coagulopathy related to acetaminophen overdose. 8. Abnormal chest x-ray with endotracheal tube at the opening of the right main stem bronchus. Repeat chest x-ray 07/02/2021 reviewed. Clear with endotracheal tube at appropriate position Plan . 1. Discussed with RN and RT. we will discontinue propofol. 2. Likely extubation today. Patient does get agitated when awake. May not have time to do blood gases on CPAP. Clinically he is expected to do well postextubation. 3. Monitor liver function test 4. Monitor INR . So far stable. 5. Continue N-acetylcysteine per protocol. Off now. Levels are back to normal. 6. Discussed with renal. No plans for dialysis at present. Continue to monitor renal function. 7. Fomepizole given per poison control recommendation.. 8. DVT prophylaxis with heparin. INR remained stable. Discussed with RN and RT. Critical care time 30 minutes HARLEY MOFFETT MD Jul 03, 2021 10:09
[2021-07-03] MEDS: IV NORMAL SALINE 1000ML BAG 1,000 ML IV SCH (12:11)
--- NOTE | 2021-07-03 13:08 | PDOC ---
DATE OF SERVICE DATE: 07/03/21 TIME: 13:05 SUBJECTIVE ROS Extubated, awake and alert, C/O headache OBJECTIVE Vital Signs Vital Signs Date Time Temp Pulse Resp B/P (MAP) Pulse Ox O2 Delivery O2 Flow Rate FiO2 07/03/21 13:00 99 20 94/61 95 Nasal Cannula 2.0 07/03/21 12:00 98.6 98.6 I & 0 Intake and Output 07/03/21 07:00 Intake Total 7848 ml Output Total 5770 ml Balance 2078 ml Intake IV Total 4517 ml Tube Feeding 2581 ml Other 750 ml Output Urine Total 5770 ml Gastric Drainage Total 0 ml PHYSICAL EXAM Physical Exam General: NAD, extubated HEENT: Atraumatic, EOMI, Mucous membr. moist/pink, Extubated, On RA Lungs: CTA, Non labored Heart: S1S2, RRR, Abdomen: Normal bowel sounds, Soft, No tenderness, No hepatosplenomegaly, No masses Extremities: No clubbing, No cyanosis, No edema, Skin: No rashes, Neuro: Grossly normal Psych/Mental Status: Cooperative [place] + DIAGNOSIS/ASSESSMENT Assessment & Plan TRISTIN suspect ATN vs AIN , Non Oliguric , excellent UOP , Monitor for Polyuria. Creatinine trending down UA unremarkable Renal US- unremarkable . Supportive care, Maintain IV Hydration , avoid Nephrotoxins HypoNatremia - Switched to NS ,stable Monitor Acidosis- Resolved Acetaminophen overdose Resolved N-acetylcysteine and fomepizole . Patient reports he took large amounts of both Acetaminophen and Ibuprofen Acute encephalopathy - metabolic with amphetamine toxicity Seizures - per assisted, resolved Lactic acidosis -resolved likely related to acetaminophen OD, Amphetamine positive Borderline personality disorder -not on meds COMMENT/RELEVANT DATA Meds Current Medications Medications (Trade) Dose Ordered Sig/Danielito Start Time Stop Time Status Last Admin Dose Admin Acetylcysteine 10 gm/Dextrose 1,050 ml @ 65.625 mls/ hr 1X ONCE 06/30/21 05:30 06/30/21 21:29 DC 06/30/21 05:22 65.625 MLS/HR Acetylcysteine 12 gm/Dextrose 1,060 ml @ 110 mls/hr Q10H 06/30/21 16:00 07/02/21 12:00 DC 07/02/21 00:35 110 MLS/HR Acetylcysteine 15 gm/Dextrose 275 ml @ 200 mls/hr 1X ONCE 06/30/21 04:00 06/30/21 05:22 DC 06/30/21 03:52 200 MLS/HR Dextrose/Sodium Chloride 1,000 ml @ 75 mls/hr [id number] 07/02/21 08:30 07/03/21 12:05 DC Etomidate (Amidate) 20 mg STK-MED ONCE 06/30/21 04:30 06/30/21 08:42 DC Fentanyl Citrate (Fentanyl 2ml Vial) 100 mcg 1X ONCE 06/30/21 04:30 06/30/21 04:31 DC Fomepizole 1 gm/ Sodium Chloride 101 ml @ 202 mls/hr Q12HR 06/30/21 22:00 07/02/21 09:30 DC 07/02/21 09:34 202 MLS/HR Fomepizole 1.5 gm/ Sodium Chloride 101.5 ml @ 203 mls/hr 1X ONCE 06/30/21 10:00 06/30/21 10:29 DC 06/30/21 09:44 203 MLS/HR Glycerin/ Hypromellose/ Polyethylene (Artificial Tears) 1 drop PRN Q15MIN PRN 07/01/21 07:15 07/03/21 12:10 DC 07/01/21 08:44 1 DROP Heparin Sodium (Porcine) (Heparin Sodium) 5,000 unit Q8HRS 07/01/21 14:00 07/03/21 05:46 5,000 UNIT Ondansetron HCl (Zofran) 4 mg PRN Q4HRS PRN 07/01/21 07:15 Pantoprazole Sodium (PROTONIX VIAL for IV PUSH) 40 mg DAILYAC 07/01/21 07:30 07/03/21 09:12 40 MG Potassium Bicarbonate (Potassium Effervescent Tablet) 40 meq 1X ONCE 07/03/21 08:30 07/03/21 08:31 DC 07/03/21 09:13 40 MEQ Propofol 100 ml @ 3.135 mls/ hr CONT PRN 06/30/21 04:30 07/03/21 12:10 DC 07/03/21 06:42 28.215 MLS/HR Propofol (Diprivan) 200 mg 1X ONCE 06/30/21 04:30 06/30/21 04:31 DC Rocuronium [place] (Zemuron) 50 mg STK-MED ONCE 06/30/21 04:30 06/30/21 08:42 DC Sodium Bicarbonate 50 meq/Dextrose 1,050 ml @ 125 mls/hr [id number] 07/01/21 08:00 07/02/21 08:30 DC 07/02/21 00:35 125 MLS/HR Sodium Bicarbonate (Sodium Bicarb Adult 8.4% Syr) 50 meq 1X ONCE 06/30/21 09:45 06/30/21 09:46 DC 06/30/21 09:44 50 MEQ Sodium Chloride 1,000 ml @ 75 mls/hr [id number] 07/02/21 09:15 07/03/21 12:11 75 MLS/HR Lab Laboratory Tests Test 07/03/21 04:30 07/03/21 08:25 White Blood Count 15.1 x10^3/uL (4.0-11.0) Red Blood Count 4.58 x10^6/uL (4.30-5.70) Hemoglobin 14.1 g/dL (13.0-17.5) Hematocrit 39.8 % (39.0-53.0) Mean Corpuscular Volume 87 fL (79-100) Mean Corpuscular Hemoglobin 31 pg (25-35) Mean Corpuscular Hemoglobin Concent 35 g/dL (31-37) Red Cell Distribution Width 13.8 % (11.5-14.5) Platelet Count 154 x10^3/uL (140-400) Neutrophils (%) (Auto) 82 % (31-73) Lymphocytes (%) (Auto) 6 % (24-48) Monocytes (%) (Auto) 11 % (0-9) Eosinophils (%) (Auto) 1 % (0-3) Basophils (%) (Auto) 0 % (0-3) Neutrophils # (Auto) 12.4 x10^3/uL (1.8-7.7) Lymphocytes # (Auto) 0.9 x10^3/uL (1.0-4.8) Monocytes # (Auto) 1.7 x10^3/uL (0.0-1.1) Eosinophils # (Auto) 0.2 x10^3/uL (0.0-0.7) Basophils # (Auto) 0.0 x10^3/uL (0.0-0.2) Prothrombin Time 14.3 SEC (11.7-14.0) Prothromb Time International Ratio 1.1 (0.8-1.1) Sodium Level 129 mmol/L (136-145) Potassium Level 3.2 mmol/L (3.5-5.1) Chloride Level 97 mmol/L (98-107) Carbon Dioxide Level 26 mmol/L (21-32) Anion Gap 6 (6-14) Blood Urea Nitrogen 20 mg/dL (8-26) Creatinine 1.8 mg/dL (0.7-1.3) Estimated GFR (Cockcroft-Gault) 41.6 BUN/Creatinine Ratio 11 (6-20) Glucose Level 121 mg/dL (70-99) Calcium Level 8.1 mg/dL (8.5-10.1) Total Bilirubin 0.6 mg/dL (0.2-1.0) Aspartate Amino Transf (AST/SGOT) 23 U/L (15-37) Alanine Aminotransferase (ALT/SGPT) 53 U/L (16-63) Alkaline Phosphatase 51 U/L (46-116) Total Protein 6.3 g/dL (6.4-8.2) Albumin 2.8 g/dL (3.4-5.0) Albumin/Globulin Ratio 0.8 (1.0-1.7) O2 Saturation 99 % (92-99) Arterial Blood pH 7.42 (7.35-7.45) Arterial Blood pCO2 at Patient Temp 37 mmHg (35-46) Arterial Blood pO2 at Patient Temp 160 mmHg (75-108) Arterial Blood HCO3 24 mmol/L (21-28) Arterial Blood Base Excess -1 mmol/L (-3-3) FiO2 40 Results All relevant outside records, renal labs, imaging studies, telemetry/EKG's were reviewed. Justicifation of Admission Dx: Justifications for Admission: Justification of Admission Dx: Yes JM GOODMAN MD Jul 03, 2021 13:08
[2021-07-03] MEDS: ONDANSETRON PF 4 MG/2 ML VIAL. IVP PRN (15:04)
[2021-07-03] MEDS ORDERED: ALBUTEROL SULFATE 2.5 MG/3 ML NEBU. NEB PRN (22:00)
[2021-07-03] MEDS ORDERED: IPRATRPIUM/ALBUTEROL 0.5/2.5MG 3 ML NEBU. NEB SCH (22:00)
[2021-07-04] VITALS (15 sets, daily range): BP systolic 111–160; BP diastolic 66–80
[2021-07-04] MEDS: IV NORMAL SALINE 1000ML BAG 1,000 ML IV SCH ×2 (00:58→13:33)
[2021-07-04] MEDS ORDERED: ASPIRIN CHEWABLE 81 MG TABLET. PO ONE (04:45)
[2021-07-04 04:48] LABS: PROTHROMBIN TIME PATIENT 14.8 SEC (11.7-14.0)
[2021-07-04 04:52] LABS: BASO # 0.1 x10^3/uL (0.0-0.2); BASO % 0 % (0-3); EOS # 0.1 x10^3/uL (0.0-0.7); EOS % 0 % (0-3); HEMATOCRIT 39.6 % (39.0-53.0); HEMOGLOBIN 13.5 g/dL (13.0-17.5); LYMPH # 0.8 x10^3/uL (1.0-4.8); LYMPH % 6 % (24-48); MEAN CORPUSCULAR HEMOGLOBIN 30 pg (25-35); MEAN CORPUSCULAR HGB CONC 34 g/dL (31-37); MEAN CORPUSCULAR VOLUME 87 fL (79-100); MONO # 1.1 x10^3/uL (0.0-1.1); MONO % 9 % (0-9); NEUT # 10.1 x10^3/uL (1.8-7.7); NEUT % 84 % (31-73); PLATELET COUNT 192 x10^3/uL (140-400); RED BLOOD COUNT 4.55 x10^6/uL (4.30-5.70); RED CELL DISTRIBUTION WIDTH 13.8 % (11.5-14.5)
[2021-07-04 05:16] LABS: ALBUMIN 2.9 g/dL (3.4-5.0); ALBUMIN/GLOBULIN RATIO 0.7 (1.0-1.7); CALCIUM 9.3 mg/dL (8.5-10.1); CREATININE 1.5 mg/dL (0.7-1.3); GFR 51.3; POTASSIUM 3.4 mmol/L (3.5-5.1); TOTAL BILIRUBIN 0.8 mg/dL (0.2-1.0); TOTAL PROTEIN 7.2 g/dL (6.4-8.2)
[2021-07-04] MEDS: HEPARIN for SUB-Q USE 5,000 UNIT/ML VIAL. SQ SCH ×3 (05:42→22:04)
--- NOTE | 2021-07-04 07:30 | RAD ---
XR CHEST 1V INDICATION: unkown fever spike . COMPARISON STUDY: 07/02/2021. FINDINGS: Endotracheal and enteric tubes have been removed. Lungs: Normal lung volume. No pulmonary mass or consolidation. The tracheobronchial tree and hilar st ructures are normal. Pleura: No pleural effusion or pneumothorax. Heart and Mediastinum: Stable cardiomediastinal silhouette and great vessels. IMPRESSION: Endotracheal and enteric tubes have been removed. No consolidation Electronically signed by: Adarsh Quevedo MD (07/04/2021 7:28 AM) [facility]
[2021-07-04] MEDS: PANTOPRAZOLE IV PUSH 40 MG VIAL. IVP SCH (08:32)
--- NOTE | 2021-07-04 09:12 | PDOC ---
[facility] PROGRESS NOTE Date of Service DOS: DATE: 07/04/21 TIME: 08:49 Chief Complaint Chief Complaint Acute encephalopathy - metabolic, likely due to medication overdose, possibly also with amphetamine toxicity. Resolving Acetaminophen overdose -unclear if intentional or not. On N-acetylcysteine 2 bag protocol (200 mg/kg mag 1 and 6.25 mg/kg hourly for 16 hours) given within 8 hours. Poison control recommended addition of fomepizole as well, given x1. Improved Metabolic acidosis - likely lactic acid related with some acute acetaminophen poisoning, will trend. Bicarb per ED and pulmonology Chronic osteoarthritis pain -if acetaminophen negative and ibuprofen are given to the future would recommend to dose pill packs daily. Seizures - per shelter, resolved Respiratory failure -extubated 07/03/2021. TRISTIN - no renal dysfunction, likely vasomotor nephropathy. Will obtain non- contrast abdominal imaging to r/o obstructive uropathy vs medical renal disease Lactic acidosis - likely related to acetaminophen OD, will trend Amphetamine positive - unclear if intoxicated Borderline personality disorder -not on meds Hyperglycemia - A1c 5.5, no DM history hyponatremia - possibly hypervolemic FEN - NPO PPX - heparin FULL CODE Dispo - ICU cc time 33 min History of Present Illness History of Present Illness Mr Alarcon is a 40yo male w/ PMHx chronic osteoarthritis pain, seizure, borderline personality disorder who is an inmate brought from shelter for unresponsiveness and concern for overdose. History obtained from ED paperwork and from [place] [employer] corrections officers. He was found on morning wellness check this morning prior to 0400 laying in a pile of vomit with suspicion patient had taken #420 of 325 mg of acetaminophen. He has been incarcerated since 2005 per corrections officers. Labs at 0449 NA 142, K3 point delayed, BUN 14 CR 1.5, anion gap 22, glucose 243, lactic acid 5.3, calcium 7.6, bilirubin 0.3, AST 23, ALT 45, alkaline phosphatase 52, albumin 3.4, acetaminophen level 383.8, salicylates 1.2, urine drug screen positive for amphetamines, urinalysis bland with glucosuria and ketonuria. Patient was notably somnolent, drooling with brown emesis, confused in ED, barley answering to his name, and was assessed as not protecting his airway ED physician elected to intubate patient. Chest radiograph with ET tube near ayanna gastric tube overlying gastric bubble below the diaphragm. No other abnormalities on CXR on my interpretation. Initial ABG 7.245/38.9/136.4 Repeat ABG 7.221/31.5/161 on AC mode 40 breaths/min per tidal volume 450 PEEP of 5 FiO2 40% 07/01: Seen on vent AC mode PEEP 5 FiO2 40%, ABG pH 7.29 this morning. Creatinine climbing to 3.5, urine output 5.7 L last 24 hours. ALT 85 now, INR 1.5. Acetaminophen level 50. CBC pending, CT abdomen/pelvis ordered. started on free water. 07/02: On vent AC mode PEEP 5 FiO2 40% with O2 saturations 90%. Creatinine still not improving. INR 1.4. Repeat morning labs pending acetaminophen level was 6.6 admit overnight planned continue Mucomyst until level is 0. Abdominal ultrasound with no renal disease or obstruction noted but diffuse hepatic steatosis noted. 07/03: WBC down to 15 NA 129, K3.2, CR improved to 1.8 albumin 2.8, INR 1.1, acetaminophen level was 0 as of 12:30 PM on 07/02/2021. Still seen on ventilator AC mode 40% FiO2 PEEP of 5 saturations 91%. Off Mucomyst. Discussed plan to extubate potentially today we will attempt vent wean. 07/04: Extubated on 07/03/2021 without event. Febrile up to 103 F overnight. Having some chills. Seen bedside in ICU with 2 corrections officers present. Creatinine to 1.5. Given his recent ibuprofen and acetaminophen overdose his only option for fever has been aspirin we will continue to do this as needed. Awaiting bedside swallow evaluation he is noted he is very hungry. Vitals/I&O Vitals/I&O: Vital Signs Date Time Temp Pulse Resp B/P (MAP) Pulse Ox O2 Delivery O2 Flow Rate FiO2 07/04/21 06:00 122 18 132/80 95 07/04/21 04:00 101.2 101.2 07/04/21 04:00 Room Air 07/03/21 23:59 2.0 I & O 07/03/21 07/03/21 07/04/21 15:00 23:00 07:00 Intake Total 334 ml 1114 ml 50 ml Output Total 1650 ml 1575 ml 1300 ml Balance -1316 ml -461 ml -1250 ml Physical Exam General: Alert, Oriented X3, Cooperative, mild distress Heart: Regular rate, Normal S1, Normal S2 Lungs: Clear Abdomen: Normal bowel sounds, Soft, No tenderness, No hepatosplenomegaly, No m asses Extremities: No clubbing, No cyanosis, No edema, Normal pulses, No tenderness/swelling Skin: No rashes, No breakdown, No significant lesion Labs Labs: Laboratory Tests Test 07/04/21 04:00 White Blood Count 12.0 x10^3/uL (4.0-11.0) Red Blood Count 4.55 x10^6/uL (4.30-5.70) Hemoglobin 13.5 g/dL (13.0-17.5) Hematocrit 39.6 % (39.0-53.0) Mean Corpuscular Volume 87 fL (79-100) Mean Corpuscular Hemoglobin 30 pg (25-35) Mean Corpuscular Hemoglobin Concent 34 g/dL (31-37) Red Cell Distribution Width 13.8 % (11.5-14.5) Platelet Count 192 x10^3/uL (140-400) Neutrophils (%) (Auto) 84 % (31-73) Lymphocytes (%) (Auto) 6 % (24-48) Monocytes (%) (Auto) 9 % (0-9) Eosinophils (%) (Auto) 0 % (0-3) Basophils (%) (Auto) 0 % (0-3) Neutrophils # (Auto) 10.1 x10^3/uL (1.8-7.7) Lymphocytes # (Auto) 0.8 x10^3/uL (1.0-4.8) Monocytes # (Auto) 1.1 x10^3/uL (0.0-1.1) Eosinophils # (Auto) 0.1 x10^3/uL (0.0-0.7) Basophils # (Auto) 0.1 x10^3/uL (0.0-0.2) Prothrombin Time 14.8 SEC (11.7-14.0) Prothromb Time International Ratio 1.2 (0.8-1.1) Sodium Level 141 mmol/L (136-145) Potassium Level 3.4 mmol/L (3.5-5.1) Chloride Level 103 mmol/L (98-107) Carbon Dioxide Level 29 mmol/L (21-32) Anion Gap 9 (6-14) Blood Urea Nitrogen 19 mg/dL (8-26) Creatinine 1.5 mg/dL (0.7-1.3) Estimated GFR (Cockcroft-Gault) 51.3 BUN/Creatinine Ratio 13 (6-20) Glucose Level 103 mg/dL (70-99) Calcium Level 9.3 mg/dL (8.5-10.1) Total Bilirubin 0.8 mg/dL (0.2-1.0) Aspartate Amino Transf (AST/SGOT) 36 U/L (15-37) Alanine Aminotransferase (ALT/SGPT) 45 U/L (16-63) Alkaline Phosphatase 56 U/L (46-116) Total Protein 7.2 g/dL (6.4-8.2) Albumin 2.9 g/dL (3.4-5.0) Albumin/Globulin Ratio 0.7 (1.0-1.7) Assessment and Plan Assessmemt and Plan Problems Medical Problems: (1) Acetaminophen overdose Status: Acute Comment Review of Relevant I have reviewed the following items cherelle (where applicable) has been applied. Medications: Current Medications Medications (Trade) Dose Ordered Sig/Danielito Route PRN Reason Start Time Stop Time Status Last Admin Dose Admin Albuterol/ Ipratropium (Duoneb) 3 ml Q4HRS W/A NEB 07/03/21 22:00 07/03/21 21:53 DC 07/03/21 21:30 Aspirin (Aspirin Chewable) 81 mg 1X ONCE PO 07/04/21 04:45 07/04/21 04:46 DC 07/04/21 05:42 Justifications for Admission Other Justification PILAR CONWAY MD July 04, 2021 09:12
--- NOTE | 2021-07-04 09:12 | PDOC ---
PULMONARY PROGRESS NOTES DATE: 07/04/21 TIME: 09:09 Subjective Patient extubated 07/03/2021. Currently on room air. Denies any shortness of breath. High-grade fevers. Vitals Vital Signs Date Time Temp Pulse Resp B/P (MAP) Pulse Ox O2 Delivery O2 Flow Rate FiO2 07/04/21 06:00 122 18 132/80 95 07/04/21 04:00 101.2 101.2 07/04/21 04:00 Room Air 07/03/21 23:59 2.0 Comments Fully awake. Extubated. General: Alert, No acute distress Lungs: Clear Cardiovascular: S1 Abdomen: Soft Extremities: No Edema Skin: Warm Labs Laboratory Tests Test 07/02/21 12:30 07/03/21 04:30 07/03/21 08:25 07/04/21 04:00 Prothrombin Time 14.9 SEC (11.7-14.0) 14.3 SEC (11.7-14.0) 14.8 SEC (11.7-14.0) Prothromb Time International Ratio 1.2 (0.8-1.1) 1.1 (0.8-1.1) 1.2 (0.8-1.1) Total Bilirubin 0.8 mg/dL (0.2-1.0) 0.6 mg/dL (0.2-1.0) 0.8 mg/dL (0.2-1.0) Direct Bilirubin 0.1 mg/dL (0.0-0.2) Aspartate Amino Transf (AST/SGOT) 28 U/L (15-37) 23 U/L (15-37) 36 U/L (15-37) Alanine Aminotransferase (ALT/SGPT) 77 U/L (16-63) 53 U/L (16-63) 45 U/L (16-63) Alkaline Phosphatase 53 U/L (46-116) 51 U/L (46-116) 56 U/L (46-116) Total Protein 6.3 g/dL (6.4-8.2) 6.3 g/dL (6.4-8.2) 7.2 g/dL (6.4-8.2) Albumin 2.7 g/dL (3.4-5.0) 2.8 g/dL (3.4-5.0) 2.9 g/dL (3.4-5.0) Acetaminophen Level < 2 mcg/ml (10-30) Acetaminophen Last Dose Date 06/30/2021 Acetaminophen Last Dose Time 0200 White Blood Count 15.1 x10^3/uL (4.0-11.0) 12.0 x10^3/uL (4.0-11.0) Red Blood Count 4.58 x10^6/uL (4.30-5.70) 4.55 x10^6/uL (4.30-5.70) Hemoglobin 14.1 g/dL (13.0-17.5) 13.5 g/dL (13.0-17.5) Hematocrit 39.8 % (39.0-53.0) 39.6 % (39.0-53.0) Mean Corpuscular Volume 87 fL (79-100) 87 fL (79-100) Mean Corpuscular Hemoglobin 31 pg (25-35) 30 pg (25-35) Mean Corpuscular Hemoglobin Concent 35 g/dL (31-37) 34 g/dL (31-37) Red Cell Distribution Width 13.8 % (11.5-14.5) 13.8 % (11.5-14.5) Platelet Count 154 x10^3/uL (140-400) 192 x10^3/uL (140-400) Neutrophils (%) (Auto) 82 % (31-73) 84 % (31-73) Lymphocytes (%) (Auto) 6 % (24-48) 6 % (24-48) Monocytes (%) (Auto) 11 % (0-9) 9 % (0-9) Eosinophils (%) (Auto) 1 % (0-3) 0 % (0-3) Basophils (%) (Auto) 0 % (0-3) 0 % (0-3) Neutrophils # (Auto) 12.4 x10^3/uL (1.8-7.7) 10.1 x10^3/uL (1.8-7.7) Lymphocytes # (Auto) 0.9 x10^3/uL (1.0-4.8) 0.8 x10^3/uL (1.0-4.8) Monocytes # (Auto) 1.7 x10^3/uL (0.0-1.1) 1.1 x10^3/uL (0.0-1.1) Eosinophils # (Auto) 0.2 x10^3/uL (0.0-0.7) 0.1 x10^3/uL (0.0-0.7) Basophils # (Auto) 0.0 x10^3/uL (0.0-0.2) 0.1 x10^3/uL (0.0-0.2) Sodium Level 129 mmol/L (136-145) 141 mmol/L (136-145) Potassium Level 3.2 mmol/L (3.5-5.1) 3.4 mmol/L (3.5-5.1) Chloride Level 97 mmol/L (98-107) 103 mmol/L (98-107) Carbon Dioxide Level 26 mmol/L (21-32) 29 mmol/L (21-32) Anion Gap 6 (6-14) 9 (6-14) Blood Urea Nitrogen 20 mg/dL (8-26) 19 mg/dL (8-26) Creatinine 1.8 mg/dL (0.7-1.3) 1.5 mg/dL (0.7-1.3) Estimated GFR (Cockcroft-Gault) 41.6 51.3 BUN/Creatinine Ratio 11 (6-20) 13 (6-20) Glucose Level 121 mg/dL (70-99) 103 mg/dL (70-99) Calcium Level 8.1 mg/dL (8.5-10.1) 9.3 mg/dL (8.5-10.1) Albumin/Globulin Ratio 0.8 (1.0-1.7) 0.7 (1.0-1.7) O2 Saturation 99 % (92-99) Arterial Blood pH 7.42 (7.35-7.45) Arterial Blood pCO2 at Patient Temp 37 mmHg (35-46) Arterial Blood pO2 at Patient Temp 160 mmHg (75-108) Arterial Blood HCO3 24 mmol/L (21-28) Arterial Blood Base Excess -1 mmol/L (-3-3) FiO2 40 Laboratory Tests Test 07/04/21 04:00 White Blood Count 12.0 x10^3/uL (4.0-11.0) Red Blood Count 4.55 x10^6/uL (4.30-5.70) Hemoglobin 13.5 g/dL (13.0-17.5) Hematocrit 39.6 % (39.0-53.0) Mean Corpuscular Volume 87 fL (79-100) Mean Corpuscular Hemoglobin 30 pg (25-35) Mean Corpuscular Hemoglobin Concent 34 g/dL (31-37) Red Cell Distribution Width 13.8 % (11.5-14.5) Platelet Count 192 x10^3/uL (140-400) Neutrophils (%) (Auto) 84 % (31-73) Lymphocytes (%) (Auto) 6 % (24-48) Monocytes (%) (Auto) 9 % (0-9) Eosinophils (%) (Auto) 0 % (0-3) Basophils (%) (Auto) 0 % (0-3) Neutrophils # (Auto) 10.1 x10^3/uL (1.8-7.7) Lymphocytes # (Auto) 0.8 x10^3/uL (1.0-4.8) Monocytes # (Auto) 1.1 x10^3/uL (0.0-1.1) Eosinophils # (Auto) 0.1 x10^3/uL (0.0-0.7) Basophils # (Auto) 0.1 x10^3/uL (0.0-0.2) Prothrombin Time 14.8 SEC (11.7-14.0) Prothromb Time International Ratio 1.2 (0.8-1.1) Sodium Level 141 mmol/L (136-145) Potassium Level 3.4 mmol/L (3.5-5.1) Chloride Level 103 mmol/L (98-107) Carbon Dioxide Level 29 mmol/L (21-32) Anion Gap 9 (6-14) Blood Urea Nitrogen 19 mg/dL (8-26) Creatinine 1.5 mg/dL (0.7-1.3) Estimated GFR (Cockcroft-Gault) 51.3 BUN/Creatinine Ratio 13 (6-20) Glucose Level 103 mg/dL (70-99) Calcium Level 9.3 mg/dL (8.5-10.1) Total Bilirubin 0.8 mg/dL (0.2-1.0) Aspartate Amino Transf (AST/SGOT) 36 U/L (15-37) Alanine Aminotransferase (ALT/SGPT) 45 U/L (16-63) Alkaline Phosphatase 56 U/L (46-116) Total Protein 7.2 g/dL (6.4-8.2) Albumin 2.9 g/dL (3.4-5.0) Albumin/Globulin Ratio 0.7 (1.0-1.7) Impression . 1. Acute respiratory failure secondary to acetaminophen overdose. He was also positive for meth. S/p extubation 07/03/2021. 2. Acute toxic encephalopathy. Resolved. 3. Metabolic acidosis related to acetaminophen overdose and ATN. Improved. 4. Abnormal liver function test. 5. Acute kidney injury. 6. Lactic acidosis. 7. No significant coagulopathy. 8. Abnormal chest x-ray with endotracheal tube at the opening of the right main stem bronchus. Repeat chest x-ray 07/02/2021 reviewed. Clear with endotracheal tube at appropriate position 9. High-grade fever. Patient has appropriately vaccinated for COVID including booster. He also had COVID in 2020. We will need to rule out all sources of infection. Plan . 1. Discussed with RN. 2. Panculture. Initiate broad-spectrum antibiotic. Consult infectious disease. 3. Monitor liver function test 4. Monitor INR . So far stable. 5. Status post fall N-acetylcysteine protocol. Levels are back to normal. 6. Discussed with renal. No plans for dialysis at present. Continue to monitor renal function. 7. Fomepizole given per poison control recommendation.. 8. DVT prophylaxis with heparin. INR remained stable. Discussed with RN HARLEY MOFFETT MD July 04, 2021 09:12
[2021-07-04] MEDS: ASPIRIN 325 MG TABLET PO PRN (10:37)
[2021-07-04 11:08] LABS: INFLUENZA A PATIENT NEGATIVE (NEGATIVE); INFLUENZA B PATIENT NEGATIVE (NEGATIVE)
--- NOTE | 2021-07-04 11:57 | PDOC ---
DATE OF SERVICE DATE: 07/04/21 TIME: 11:55 SUBJECTIVE ROS No complaints Eating lunch OBJECTIVE Vital Signs Vital Signs Date Time Temp Pulse Resp B/P (MAP) Pulse Ox O2 Delivery O2 Flow Rate FiO2 07/04/21 11:00 113 18 132/80 93 07/04/21 08:00 101.3 101.3 07/04/21 08:00 Room Air 07/03/21 23:59 2.0 I & 0 Intake and Output 07/04/21 07:00 Intake Total 1498 ml Output Total 4525 ml Balance -3027 ml Intake Oral 50 ml IV Total 908 ml Tube Feeding 330 ml Other 210 ml Output Urine Total 4525 ml PHYSICAL EXAM Physical Exam General: NAD, HEENT: Atraumatic, EOMI, Mucous membr. moist/pink, Extubated, On RA Lungs: CTA, Non labored Heart: S1S2, RRR, Abdomen: Normal bowel sounds, Soft, No tenderness, No hepatosplenomegaly, No masses Extremities: No clubbing, No cyanosis, No edema, Skin: No rashes, Neuro: Grossly normal Psych/Mental Status: Cooperative [place] + DIAGNOSIS/ASSESSMENT Assessment & Plan TRISTIN suspect ATN vs AIN , Non Oliguric , excellent UOP , Monitor for Polyuria. Creatinine trending down UA unremarkable Renal US- unremarkable . Supportive care, Maintain fluid balance ,DC IVF . DC rpeciado , Monitor for urine retention, Bladder scan prn, I/O avoid Nephrotoxins Fever spiked temp 101 this morning . Cxr normal HypoNatremia - Resolved Acidosis- Resolved Acetaminophen overdose Resolved N-acetylcysteine and fomepizole . Patient reports he took large amounts of both Acetaminophen and Ibuprofen Acute encephalopathy - metabolic with amphetamine toxicity Seizures - per nursing home, resolved Lactic acidosis -resolved likely related to acetaminophen OD, Amphetamine positive Borderline personality disorder -not on meds COMMENT/RELEVANT DATA Meds Current Medications Medications (Trade) Dose Ordered Sig/Danielito Start Time Stop Time Status Last Admin Dose Admin Acetylcysteine 10 gm/Dextrose 1,050 ml @ 65.625 mls/ hr 1X ONCE 06/30/21 05:30 06/30/21 21:29 DC 06/30/21 05:22 65.625 MLS/HR Acetylcysteine 12 gm/Dextrose 1,060 ml @ 110 mls/hr Q10H 06/30/21 16:00 07/02/21 12:00 DC 07/02/21 00:35 110 MLS/HR Acetylcysteine 15 gm/Dextrose 275 ml @ 200 mls/hr 1X ONCE 06/30/21 04:00 06/30/21 05:22 DC 06/30/21 03:52 200 MLS/HR Albuterol Sulfate (Ventolin Neb Soln) 2.5 mg PRN Q4HRS PRN 07/03/21 22:00 Albuterol/ Ipratropium (Duoneb) 3 ml Q4HRS W/A 07/03/21 22:00 07/03/21 21:53 DC 07/03/21 21:30 3 ML Aspirin (Aspirin Chewable) 81 mg 1X ONCE 07/04/21 04:45 07/04/21 04:46 DC 07/04/21 05:42 81 MG Aspirin (Melia Aspirin) 325 mg PRN BID PRN 07/04/21 09:00 07/04/21 10:37 325 MG Dextrose/Sodium Chloride 1,000 ml @ 75 mls/hr [id number] 07/02/21 08:30 07/03/21 12:05 DC Etomidate (Amidate) 20 mg STK-MED ONCE 06/30/21 04:30 06/30/21 08:42 DC Fentanyl Citrate (Fentanyl 2ml Vial) 100 mcg 1X ONCE 06/30/21 04:30 06/30/21 04:31 DC Fomepizole 1 gm/ Sodium Chloride 101 ml @ 202 mls/hr Q12HR 06/30/21 22:00 07/02/21 09:30 DC 07/02/21 09:34 202 MLS/HR Fomepizole 1.5 gm/ Sodium Chloride 101.5 ml @ 203 mls/hr 1X ONCE 06/30/21 10:00 06/30/21 10:29 DC 06/30/21 09:44 203 MLS/HR Glycerin/ Hypromellose/ Polyethylene (Artificial Tears) 1 drop PRN Q15MIN PRN 07/01/21 07:15 07/03/21 12:10 DC 07/01/21 08:44 1 DROP Heparin Sodium (Porcine) (Heparin Sodium) 5,000 unit Q8HRS 07/01/21 14:00 07/04/21 05:42 5,000 UNIT Meropenem 500 mg/ Sodium Chloride 50 ml @ 100 mls/hr Q6HRS 07/04/21 12:00 Ondansetron HCl (Zofran) 4 mg PRN Q4HRS PRN 07/01/21 07:15 07/03/21 15:04 4 MG Pantoprazole Sodium (PROTONIX VIAL for IV PUSH) 40 mg DAILYAC 07/01/21 07:30 07/04/21 08:32 40 MG Potassium Bicarbonate (Potassium Effervescent Tablet) 40 meq 1X ONCE 07/03/21 08:30 07/03/21 08:31 DC 07/03/21 09:13 40 MEQ Propofol 100 ml @ 3.135 mls/ hr CONT PRN 06/30/21 04:30 07/03/21 12:10 DC 07/03/21 06:42 28.215 MLS/HR Propofol (Diprivan) 200 mg 1X ONCE 06/30/21 04:30 06/30/21 04:31 DC Rocuronium [place] (Zemuron) 50 mg STK-MED ONCE 06/30/21 04:30 06/30/21 08:42 DC Sodium Bicarbonate 50 meq/Dextrose 1,050 ml @ 125 mls/hr Q8H24M 07/01/21 08:00 07/02/21 08:30 DC 07/02/21 00:35 125 MLS/HR Sodium Bicarbonate (Sodium Bicarb Adult 8.4% Syr) 50 meq 1X ONCE 06/30/21 09:45 06/30/21 09:46 DC 06/30/21 09:44 50 MEQ Sodium Chloride 1,000 ml @ 75 mls/hr [id number] 07/02/21 09:15 07/04/21 00:58 75 MLS/HR Lab Laboratory Tests Test 07/04/21 04:00 07/04/21 10:34 White Blood Count 12.0 x10^3/uL (4.0-11.0) Red Blood Count 4.55 x10^6/uL (4.30-5.70) Hemoglobin 13.5 g/dL (13.0-17.5) Hematocrit 39.6 % (39.0-53.0) Mean Corpuscular Volume 87 fL (79-100) Mean Corpuscular Hemoglobin 30 pg (25-35) Mean Corpuscular Hemoglobin Concent 34 g/dL (31-37) Red Cell Distribution Width 13.8 % (11.5-14.5) Platelet Count 192 x10^3/uL (140-400) Neutrophils (%) (Auto) 84 % (31-73) Lymphocytes (%) (Auto) 6 % (24-48) Monocytes (%) (Auto) 9 % (0-9) Eosinophils (%) (Auto) 0 % (0-3) Basophils (%) (Auto) 0 % (0-3) Neutrophils # (Auto) 10.1 x10^3/uL (1.8-7.7) Lymphocytes # (Auto) 0.8 x10^3/uL (1.0-4.8) Monocytes # (Auto) 1.1 x10^3/uL (0.0-1.1) Eosinophils # (Auto) 0.1 x10^3/uL (0.0-0.7) Basophils # (Auto) 0.1 x10^3/uL (0.0-0.2) Prothrombin Time 14.8 SEC (11.7-14.0) Prothromb Time International Ratio 1.2 (0.8-1.1) Sodium Level 141 mmol/L (136-145) Potassium Level 3.4 mmol/L (3.5-5.1) Chloride Level 103 mmol/L (98-107) Carbon Dioxide Level 29 mmol/L (21-32) Anion Gap 9 (6-14) Blood Urea Nitrogen 19 mg/dL (8-26) Creatinine 1.5 mg/dL (0.7-1.3) Estimated GFR (Cockcroft-Gault) 51.3 BUN/Creatinine Ratio 13 (6-20) Glucose Level 103 mg/dL (70-99) Calcium Level 9.3 mg/dL (8.5-10.1) Total Bilirubin 0.8 mg/dL (0.2-1.0) Aspartate Amino Transf (AST/SGOT) 36 U/L (15-37) Alanine Aminotransferase (ALT/SGPT) 45 U/L (16-63) Alkaline Phosphatase 56 U/L (46-116) Total Protein 7.2 g/dL (6.4-8.2) Albumin 2.9 g/dL (3.4-5.0) Albumin/Globulin Ratio 0.7 (1.0-1.7) Influenza Type A Antigen Negative (NEGATIVE) Influenza Type B Antigen Negative (NEGATIVE) SARS-CoV-2 Antigen (Rapid) Negative (NEGATIVE) Results All relevant outside records, renal labs, imaging studies, telemetry/EKG's were reviewed. Justicifation of Admission Dx: Justifications for Admission: Justification of Admission Dx: Yes JM GOODMAN MD July 04, 2021 11:57
[2021-07-04] MEDS: MEROPENEM 500 MG in IV NORMAL SALINE 50ML 50 ML IV SCH ×2 (12:00→18:38)
--- NOTE | 2021-07-04 13:00 | NUR ---
positive sepsis screen, Riffel notified, cultures (blood and urine) ordered, antibiotics orderer and ID consulted.
[2021-07-04 14:09] LABS: BACTERIA,URINE FEW /HPF (0-FEW)
[2021-07-04 14:10] LABS: RBC,URINE 0 /HPF (0-2)
--- NOTE | 2021-07-04 16:32 | CONS ---
DATE OF CONSULTATION: 07/04/2021 REFERRING PHYSICIAN: Dr. Finley. REASON FOR CONSULTATION: Fever. HISTORY OF PRESENT ILLNESS: A 40-year-old male who is an inmate at [facility] was brought in to the hospital after he was noted to have taken 11 packets of Tylenol, each packet containing 5 tablets. The patient also had nausea and emesis. He was somnolent in the ER with drooling with brown emesis. The patient was confused. He was intubated, found hypoxic. Tylenol level was 383.8. He was started on N-acetylcysteine protocol. White count was 25,000. Creatinine of 1.5, bicarb of 19. LFTs were normal on admission. INR of 1.5. UA was negative. The patient had Buchanan placement and groin line placement, both of which were removed today after the patient was found to have a fever of 101.3. The patient is currently on room air. He was started on meropenem after blood cultures were drawn. ID consultation has been requested for antibiotic management. PAST MEDICAL HISTORY: Borderline personality disorder, seizure disorder, osteoarthritis. PAST SURGICAL HISTORY: None. ALLERGIES: None. CURRENT MEDICATIONS: Meropenem. Other medications reviewed in medication list. REVIEW OF SYSTEMS: The patient complains of some headache. Denies any chills, sore throat, dental pain, nausea, vomiting. Does have some abdominal discomfort. Denies any urinary symptoms, but has not passed any urine after Buchanan has been removed earlier today. Denies any joint pain or rash. Review of systems is negative except for above in HPI.. PHYSICAL EXAMINATION: VITAL SIGNS: Temperature 101.3, pulse 113, respiratory rate 18, blood pressure 132/80, oxygen saturation 93% on room air. GENERAL: Alert, awake male, in no acute distress, on room air. HEENT: Normocephalic, atraumatic. Anicteric. No thrush. Oral mucosa moist. NECK: Supple. LUNGS: Clear bilaterally. No wheezing. HEART: S1, S2. No gallops or murmurs. ABDOMEN: Soft, nontender, nondistended, no rebound or guarding. EXTREMITIES: No edema, no cyanosis. DERMATOLOGIC: Warm, dry, no generalized rash. NEUROLOGIC: Alert, oriented x 3, grossly nonfocal. PSYCHIATRIC: Calm and cooperative. LABORATORY DATA: WBC 12.0, was 25.5; hemoglobin 13.5, was 17.7; platelets 192. UA showed 1-4 wbc's on 06/30. Sodium 141, potassium 3.4, chloride 103, bicarb 29, BUN 19, creatinine 1.5, glucose 103. LFTs normal, they had been elevated, but normalized. Albumin 2.9. SARS-COVID screen negative. Today, acetaminophen 383.80 on admission. Ethyl alcohol less than 10. Salicylate was 1.2. IMAGING: Chest x-ray today shows endotracheal and enteric tubes have been removed. No consolidation. IMPRESSION: 1. Fever, w/u pending at this time 2. Acute hypoxic respiratory failure secondary to acetaminophen overdose also was positive for meth, status post extubation 07/03/2021.On RA.CXR without infiltrates 3. Tylenol overdose. 4. Acute toxic encephalopathy, resolved. 5. Acute kidney injury. 6. Lactic acidosis. 7. Abnormal liver function tests, improved. 8. Acute kidney injury with metabolic acidosis, improving. RECOMMENDATIONS: 1. Continue meropenem. 2. Add daptomycin. 3. Groin line has been removed. 4. Buchanan has been removed. 5. Followup UA, urine culture, blood cultures done today. 6. Maintain aspiration precaution. 7. Monitor labs and cultures. 8. Follow COVID-19 PCR. Than you, Dr. Finley, for consulting Infectious Disease to participate in this patient's care. If you have any questions, do not hesitate to contact me. MONICA/KATIANA LOZANO: Jolene TID: [id number] [facility]
[2021-07-04] MEDS: DAPTOmycin (GENERIC) IVPB 500 MG in IV NORMAL SALINE 50ML 50 ML IV SCH (17:11)
[2021-07-05] MEDS: ASPIRIN 325 MG TABLET PO PRN ×2 (01:54→16:11)
[2021-07-05] MEDS: MEROPENEM 500 MG in IV NORMAL SALINE 50ML 50 ML IV SCH ×5 (01:54→23:58)
[2021-07-05 04:00] VITALS: BP 139/68
[2021-07-05] MEDS: HEPARIN for SUB-Q USE 5,000 UNIT/ML VIAL. SQ SCH ×3 (06:15→21:51)
[2021-07-05 07:00] VITALS: BP 140/80
[2021-07-05 08:32] LABS: BASO % 0 % (0-3); EOS # 0.1 x10^3/uL (0.0-0.7); EOS % 1 % (0-3); HEMATOCRIT 36.4 % (39.0-53.0); HEMOGLOBIN 12.5 g/dL (13.0-17.5); LYMPH # 1.4 x10^3/uL (1.0-4.8); LYMPH % 12 % (24-48); MEAN CORPUSCULAR HEMOGLOBIN 30 pg (25-35); MEAN CORPUSCULAR HGB CONC 34 g/dL (31-37); MEAN CORPUSCULAR VOLUME 88 fL (79-100); MONO # 1.5 x10^3/uL (0.0-1.1); MONO % 13 % (0-9); NEUT # 8.5 x10^3/uL (1.8-7.7); NEUT % 73 % (31-73); PLATELET COUNT 247 x10^3/uL (140-400); RED BLOOD COUNT 4.15 x10^6/uL (4.30-5.70); RED CELL DISTRIBUTION WIDTH 13.5 % (11.5-14.5); WHITE BLOOD COUNT 11.7 x10^3/uL (4.0-11.0)
[2021-07-05 08:36] LABS: PROTHROMBIN TIME PATIENT 13.9 SEC (11.7-14.0)
[2021-07-05 08:52] LABS: ALBUMIN 2.5 g/dL (3.4-5.0); ALBUMIN/GLOBULIN RATIO 0.6 (1.0-1.7); CALCIUM 8.3 mg/dL (8.5-10.1); CREATININE 1.2 mg/dL (0.7-1.3); GFR 66.4; TOTAL BILIRUBIN 0.5 mg/dL (0.2-1.0); TOTAL PROTEIN 6.6 g/dL (6.4-8.2)
[2021-07-05] MEDS: PANTOPRAZOLE IV PUSH 40 MG VIAL. IVP SCH (08:52)
[2021-07-05 08:56] LABS: POTASSIUM 2.9 mmol/L (3.5-5.1)
--- NOTE | 2021-07-05 09:13 | PDOC ---
DATE OF SERVICE DATE: 07/05/21 TIME: 09:10 SUBJECTIVE ROS transferred out of ICU , c/o headache. Denies any N/V or SOB. Buchanan removed. he denies any urinary complaints OBJECTIVE Vital Signs Vital Signs Date Time Temp Pulse Resp B/P (MAP) Pulse Ox O2 Delivery O2 Flow Rate FiO2 07/05/21 07:00 99.6 108 21 140/80 (100) 95 Room Air 99.6 I & 0 Intake and Output 07/05/21 07:00 Intake Total 2100 ml Output Total 750 ml Balance 1350 ml Intake Oral 1200 ml IV Total 900 ml Output Urine Total 750 ml PHYSICAL EXAM Physical Exam General: NAD, HEENT: Atraumatic, EOMI, Mucous membr. moist/pink, On RA Lungs: CTA, Non labored Heart: S1S2, RRR, Abdomen: Normal bowel sounds, Soft, No tenderness, No hepatosplenomegaly, No masses Extremities: No clubbing, No cyanosis, No edema, Skin: No rashes, Neuro: Grossly normal Psych/Mental Status: Cooperative Buchanan dced DIAGNOSIS/ASSESSMENT Assessment & Plan TRISTIN suspect ATN vs AIN , Non Oliguric , UOP was 3lts, now recorded as 750?? accuracy , Creatinine trending down UA unremarkable Renal US- unremarkable . Supportive care, Maintain fluid balance , Monitor for urine retention, Bladder scan prn, I/O avoid Nephrotoxins HypoNatremia - Resolved HypoKalemia- Replace Acidosis- Resolved Acetaminophen overdose Resolved N-acetylcysteine and fomepizole . Patient reports he took large amounts of both Acetaminophen and Ibuprofen Acute encephalopathy - metabolic with amphetamine toxicity Seizures - per [facility], resolved Lactic acidosis -resolved likely related to acetaminophen OD, Amphetamine positive Borderline personality disorder -not on meds COMMENT/RELEVANT DATA Meds Current Medications Medications (Trade) Dose Ordered Sig/Danielito Start Time Stop Time Status Last Admin Dose Admin Acetylcysteine 10 gm/Dextrose 1,050 ml @ 65.625 mls/ hr 1X ONCE 06/30/21 05:30 06/30/21 21:29 DC 06/30/21 05:22 65.625 MLS/HR Acetylcysteine 12 gm/Dextrose 1,060 ml @ 110 mls/hr Q10H 06/30/21 16:00 07/02/21 12:00 DC 07/02/21 00:35 110 MLS/HR Acetylcysteine 15 gm/Dextrose 275 ml @ 200 mls/hr 1X ONCE 06/30/21 04:00 06/30/21 05:22 DC 06/30/21 03:52 200 MLS/HR Albuterol Sulfate (Ventolin Neb Soln) 2.5 mg PRN Q4HRS PRN 07/03/21 22:00 Albuterol/ Ipratropium (Duoneb) 3 ml Q4HRS W/A 07/03/21 22:00 07/03/21 21:53 DC 07/03/21 21:30 3 ML Aspirin (Aspirin Chewable) 81 mg 1X ONCE 07/04/21 04:45 07/04/21 04:46 DC 07/04/21 05:42 81 MG Aspirin (Melia Aspirin) 325 mg PRN BID PRN 07/04/21 09:00 07/05/21 01:54 325 MG Daptomycin 500 mg/ Sodium Chloride 50 ml @ 100 mls/hr Q24H 07/04/21 16:00 07/04/21 17:11 100 MLS/HR Dextrose/Sodium Chloride 1,000 ml @ 75 mls/hr [id number] 07/02/21 08:30 07/03/21 12:05 DC Etomidate (Amidate) 20 mg STK-MED ONCE 06/30/21 04:30 06/30/21 08:42 DC Fentanyl Citrate (Fentanyl 2ml Vial) 100 mcg 1X ONCE 06/30/21 04:30 06/30/21 04:31 DC Fomepizole 1 gm/ Sodium Chloride 101 ml @ 202 mls/hr Q12HR 06/30/21 22:00 07/02/21 09:30 DC 07/02/21 09:34 202 MLS/HR Fomepizole 1.5 gm/ Sodium Chloride 101.5 ml @ 203 mls/hr 1X ONCE 06/30/21 10:00 06/30/21 10:29 DC 06/30/21 09:44 203 MLS/HR Glycerin/ Hypromellose/ Polyethylene (Artificial Tears) 1 drop PRN Q15MIN PRN 07/01/21 07:15 07/03/21 12:10 DC 07/01/21 08:44 1 DROP Heparin Sodium (Porcine) (Heparin Sodium) 5,000 unit Q8HRS 07/01/21 14:00 07/05/21 06:15 5,000 UNIT Meropenem 500 mg/ Sodium Chloride 50 ml @ 100 mls/hr Q6HRS 07/04/21 12:00 07/05/21 06:10 100 MLS/HR Ondansetron HCl (Zofran) 4 mg PRN Q4HRS PRN 07/01/21 07:15 07/03/21 15:04 4 MG Pantoprazole Sodium (PROTONIX VIAL for IV PUSH) 40 mg DAILYAC 07/01/21 07:30 07/05/21 08:52 40 MG Potassium Bicarbonate (Potassium Effervescent Tablet) 40 meq 1X ONCE 07/03/21 08:30 07/03/21 08:31 DC 07/03/21 09:13 40 MEQ Propofol 100 ml @ 3.135 mls/ hr CONT PRN 06/30/21 04:30 07/03/21 12:10 DC 07/03/21 06:42 28.215 MLS/HR Propofol (Diprivan) 200 mg 1X ONCE 06/30/21 04:30 06/30/21 04:31 DC Rocuronium [place] (Zemuron) 50 mg STK-MED ONCE 06/30/21 04:30 06/30/21 08:42 DC Sodium Bicarbonate 50 meq/Dextrose 1,050 ml @ 125 mls/hr Q8H24M 07/01/21 08:00 07/02/21 08:30 DC 07/02/21 00:35 125 MLS/HR Sodium Bicarbonate (Sodium Bicarb Adult 8.4% Syr) 50 meq 1X ONCE 06/30/21 09:45 06/30/21 09:46 DC 06/30/21 09:44 50 MEQ Sodium Chloride 1,000 ml @ 75 mls/hr [id number] 07/02/21 09:15 07/04/21 14:34 DC 07/04/21 00:58 75 MLS/HR Lab Laboratory Tests Test 07/04/21 10:34 07/04/21 10:36 07/04/21 13:17 07/05/21 07:25 Influenza Type A Antigen Negative (NEGATIVE) Influenza Type B Antigen Negative (NEGATIVE) SARS-CoV-2 Antigen (Rapid) Negative (NEGATIVE) Coronavirus (COVID-19)(PCR) Not detected (NOT DETECTD) Urine Collection Type Unknown Urine Color (Auto) Yellow Urine Turbidity Hazy Urine pH (Auto) 5.5 (<5.0-8.0) Urine Specific [place] 1.022 (1.000-1.030) Urine Protein (Auto) 30 mg/dL (Negative) Urine Glucose (Auto)(UA) Negative mg/dL (Negative) Urine Ketones (Auto) Trace mg/dL (Negative) Urine Blood (Auto) Negative (Negative) Urine Nitrite Positive (Negative) Urine Bilirubin (Auto) Negative (Negative) Urine Urobilinogen (Auto) Normal mg/dL (Normal) Urine Leukocyte Esterase (Auto) Large (Negative) Urine RBC 0 /HPF (0-2) Urine WBC 11-20 /HPF (0-4) Urine Bacteria Few /HPF (0-FEW) Urine Mucus Mod /LPF White Blood Count 11.7 x10^3/uL (4.0-11.0) Red Blood Count 4.15 x10^6/uL (4.30-5.70) Hemoglobin 12.5 g/dL (13.0-17.5) Hematocrit 36.4 % (39.0-53.0) Mean Corpuscular Volume 88 fL (79-100) Mean Corpuscular Hemoglobin 30 pg (25-35) Mean Corpuscular Hemoglobin Concent 34 g/dL (31-37) Red Cell Distribution Width 13.5 % (11.5-14.5) Platelet Count 247 x10^3/uL (140-400) Neutrophils (%) (Auto) 73 % (31-73) Lymphocytes (%) (Auto) 12 % (24-48) Monocytes (%) (Auto) 13 % (0-9) Eosinophils (%) (Auto) 1 % (0-3) Basophils (%) (Auto) 0 % (0-3) Neutrophils # (Auto) 8.5 x10^3/uL (1.8-7.7) Lymphocytes # (Auto) 1.4 x10^3/uL (1.0-4.8) Monocytes # (Auto) 1.5 x10^3/uL (0.0-1.1) Eosinophils # (Auto) 0.1 x10^3/uL (0.0-0.7) Basophils # (Auto) 0.0 x10^3/uL (0.0-0.2) Prothrombin Time 13.9 SEC (11.7-14.0) Prothromb Time International Ratio 1.1 (0.8-1.1) Sodium Level 141 mmol/L (136-145) Potassium Level 2.9 mmol/L (3.5-5.1) Chloride Level 103 mmol/L (98-107) Carbon Dioxide Level 28 mmol/L (21-32) Anion Gap 10 (6-14) Blood Urea Nitrogen 16 mg/dL (8-26) Creatinine 1.2 mg/dL (0.7-1.3) Estimated GFR (Cockcroft-Gault) 66.4 BUN/Creatinine Ratio 13 (6-20) Glucose Level 90 mg/dL (70-99) Calcium Level 8.3 mg/dL (8.5-10.1) Total Bilirubin 0.5 mg/dL (0.2-1.0) Aspartate Amino Transf (AST/SGOT) 24 U/L (15-37) Alanine Aminotransferase (ALT/SGPT) 33 U/L (16-63) Alkaline Phosphatase 44 U/L (46-116) Total Protein 6.6 g/dL (6.4-8.2) Albumin 2.5 g/dL (3.4-5.0) Albumin/Globulin Ratio 0.6 (1.0-1.7) Results All relevant outside records, renal labs, imaging studies, telemetry/EKG's were reviewed. Justicifation of Admission Dx: Justifications for Admission: Justification of Admission Dx: Yes JM GOODMAN MD July 05, 2021 09:13
[2021-07-05] MEDS ORDERED: POTASSIUM CHLORIDE 20MEQ 100 ML IV ONE (09:30)
--- NOTE | 2021-07-05 09:35 | RAD ---
XR CHEST 1V INDICATION: fever . COMPARISON STUDY: 07/04/2001. FINDINGS: Lungs: Normal lung volume. No focal airspace disease. Normal pulmonary vasculature. Pleura: No pleural effusion or pneumothorax. Heart and Mediastinum: Stable cardiomediastinal silhouette and great vessels. IMPRESSION: No focal airspace disease. Electronically signed by: Adarsh Quevedo MD (07/05/2021 9:32 AM) [id number]
[2021-07-05] MEDS: POTASSIUM CHLORIDE 10MEQ 100 ML IV SCH ×2 (09:59→11:00)
--- NOTE | 2021-07-05 10:17 | PDOC ---
PULMONARY PROGRESS NOTES DATE: 07/05/21 TIME: 10:15 Subjective Patient extubated 07/03/2021. Currently on room air. Denies any shortness of breath. High-grade fevers. Vitals Vital Signs Date Time Temp Pulse Resp B/P (MAP) Pulse Ox O2 Delivery O2 Flow Rate FiO2 07/05/21 07:00 99.6 108 21 140/80 (100) 95 Room Air 99.6 Comments Fully awake. Extubated. General: Alert, No acute distress Lungs: Clear Cardiovascular: S1 Abdomen: Soft Extremities: No Edema Skin: Warm Labs Laboratory Tests Test 07/04/21 04:00 07/04/21 10:34 07/04/21 10:36 07/04/21 13:17 White Blood Count 12.0 x10^3/uL (4.0-11.0) Red Blood Count 4.55 x10^6/uL (4.30-5.70) Hemoglobin 13.5 g/dL (13.0-17.5) Hematocrit 39.6 % (39.0-53.0) Mean Corpuscular Volume 87 fL (79-100) Mean Corpuscular Hemoglobin 30 pg (25-35) Mean Corpuscular Hemoglobin Concent 34 g/dL (31-37) Red Cell Distribution Width 13.8 % (11.5-14.5) Platelet Count 192 x10^3/uL (140-400) Neutrophils (%) (Auto) 84 % (31-73) Lymphocytes (%) (Auto) 6 % (24-48) Monocytes (%) (Auto) 9 % (0-9) Eosinophils (%) (Auto) 0 % (0-3) Basophils (%) (Auto) 0 % (0-3) Neutrophils # (Auto) 10.1 x10^3/uL (1.8-7.7) Lymphocytes # (Auto) 0.8 x10^3/uL (1.0-4.8) Monocytes # (Auto) 1.1 x10^3/uL (0.0-1.1) Eosinophils # (Auto) 0.1 x10^3/uL (0.0-0.7) Basophils # (Auto) 0.1 x10^3/uL (0.0-0.2) Prothrombin Time 14.8 SEC (11.7-14.0) Prothromb Time International Ratio 1.2 (0.8-1.1) Sodium Level 141 mmol/L (136-145) Potassium Level 3.4 mmol/L (3.5-5.1) Chloride Level 103 mmol/L (98-107) Carbon Dioxide Level 29 mmol/L (21-32) Anion Gap 9 (6-14) Blood Urea Nitrogen 19 mg/dL (8-26) Creatinine 1.5 mg/dL (0.7-1.3) Estimated GFR (Cockcroft-Gault) 51.3 BUN/Creatinine Ratio 13 (6-20) Glucose Level 103 mg/dL (70-99) Calcium Level 9.3 mg/dL (8.5-10.1) Total Bilirubin 0.8 mg/dL (0.2-1.0) Aspartate Amino Transf (AST/SGOT) 36 U/L (15-37) Alanine Aminotransferase (ALT/SGPT) 45 U/L (16-63) Alkaline Phosphatase 56 U/L (46-116) Total Protein 7.2 g/dL (6.4-8.2) Albumin 2.9 g/dL (3.4-5.0) Albumin/Globulin Ratio 0.7 (1.0-1.7) Influenza Type A Antigen Negative (NEGATIVE) Influenza Type B Antigen Negative (NEGATIVE) SARS-CoV-2 Antigen (Rapid) Negative (NEGATIVE) Coronavirus (COVID-19)(PCR) Not detected (NOT DETECTD) Urine Collection Type Unknown Urine Color (Auto) Yellow Urine Turbidity Hazy Urine pH (Auto) 5.5 (<5.0-8.0) Urine Specific [place] 1.022 (1.000-1.030) Urine Protein (Auto) 30 mg/dL (Negative) Urine Glucose (Auto)(UA) Negative mg/dL (Negative) Urine Ketones (Auto) Trace mg/dL (Negative) Urine Blood (Auto) Negative (Negative) Urine Nitrite Positive (Negative) Urine Bilirubin (Auto) Negative (Negative) Urine Urobilinogen (Auto) Normal mg/dL (Normal) Urine Leukocyte Esterase (Auto) Large (Negative) Urine RBC 0 /HPF (0-2) Urine WBC 11-20 /HPF (0-4) Urine Bacteria Few /HPF (0-FEW) Urine Mucus Mod /LPF Test 07/05/21 07:25 White Blood Count 11.7 x10^3/uL (4.0-11.0) Red Blood Count 4.15 x10^6/uL (4.30-5.70) Hemoglobin 12.5 g/dL (13.0-17.5) Hematocrit 36.4 % (39.0-53.0) Mean Corpuscular Volume 88 fL (79-100) Mean Corpuscular Hemoglobin 30 pg (25-35) Mean Corpuscular Hemoglobin Concent 34 g/dL (31-37) Red Cell Distribution Width 13.5 % (11.5-14.5) Platelet Count 247 x10^3/uL (140-400) Neutrophils (%) (Auto) 73 % (31-73) Lymphocytes (%) (Auto) 12 % (24-48) Monocytes (%) (Auto) 13 % (0-9) Eosinophils (%) (Auto) 1 % (0-3) Basophils (%) (Auto) 0 % (0-3) Neutrophils # (Auto) 8.5 x10^3/uL (1.8-7.7) Lymphocytes # (Auto) 1.4 x10^3/uL (1.0-4.8) Monocytes # (Auto) 1.5 x10^3/uL (0.0-1.1) Eosinophils # (Auto) 0.1 x10^3/uL (0.0-0.7) Basophils # (Auto) 0.0 x10^3/uL (0.0-0.2) Prothrombin Time 13.9 SEC (11.7-14.0) Prothromb Time International Ratio 1.1 (0.8-1.1) Sodium Level 141 mmol/L (136-145) Potassium Level 2.9 mmol/L (3.5-5.1) Chloride Level 103 mmol/L (98-107) Carbon Dioxide Level 28 mmol/L (21-32) Anion Gap 10 (6-14) Blood Urea Nitrogen 16 mg/dL (8-26) Creatinine 1.2 mg/dL (0.7-1.3) Estimated GFR (Cockcroft-Gault) 66.4 BUN/Creatinine Ratio 13 (6-20) Glucose Level 90 mg/dL (70-99) Calcium Level 8.3 mg/dL (8.5-10.1) Total Bilirubin 0.5 mg/dL (0.2-1.0) Aspartate Amino Transf (AST/SGOT) 24 U/L (15-37) Alanine Aminotransferase (ALT/SGPT) 33 U/L (16-63) Alkaline Phosphatase 44 U/L (46-116) Total Protein 6.6 g/dL (6.4-8.2) Albumin 2.5 g/dL (3.4-5.0) Albumin/Globulin Ratio 0.6 (1.0-1.7) Laboratory Tests Test 07/04/21 10:34 07/04/21 10:36 07/04/21 13:17 07/05/21 07:25 Influenza Type A Antigen Negative (NEGATIVE) Influenza Type B Antigen Negative (NEGATIVE) SARS-CoV-2 Antigen (Rapid) Negative (NEGATIVE) Coronavirus (COVID-19)(PCR) Not detected (NOT DETECTD) Urine Collection Type Unknown Urine Color (Auto) Yellow Urine Turbidity Hazy Urine pH (Auto) 5.5 (<5.0-8.0) Urine Specific [place] 1.022 (1.000-1.030) Urine Protein (Auto) 30 mg/dL (Negative) Urine Glucose (Auto)(UA) Negative mg/dL (Negative) Urine Ketones (Auto) Trace mg/dL (Negative) Urine Blood (Auto) Negative (Negative) Urine Nitrite Positive (Negative) Urine Bilirubin (Auto) Negative (Negative) Urine Urobilinogen (Auto) Normal mg/dL (Normal) Urine Leukocyte Esterase (Auto) Large (Negative) Urine RBC 0 /HPF (0-2) Urine WBC 11-20 /HPF (0-4) Urine Bacteria Few /HPF (0-FEW) Urine Mucus Mod /LPF White Blood Count 11.7 x10^3/uL (4.0-11.0) Red Blood Count 4.15 x10^6/uL (4.30-5.70) Hemoglobin 12.5 g/dL (13.0-17.5) Hematocrit 36.4 % (39.0-53.0) Mean Corpuscular Volume 88 fL (79-100) Mean Corpuscular Hemoglobin 30 pg (25-35) Mean Corpuscular Hemoglobin Concent 34 g/dL (31-37) Red Cell Distribution Width 13.5 % (11.5-14.5) Platelet Count 247 x10^3/uL (140-400) Neutrophils (%) (Auto) 73 % (31-73) Lymphocytes (%) (Auto) 12 % (24-48) Monocytes (%) (Auto) 13 % (0-9) Eosinophils (%) (Auto) 1 % (0-3) Basophils (%) (Auto) 0 % (0-3) Neutrophils # (Auto) 8.5 x10^3/uL (1.8-7.7) Lymphocytes # (Auto) 1.4 x10^3/uL (1.0-4.8) Monocytes # (Auto) 1.5 x10^3/uL (0.0-1.1) Eosinophils # (Auto) 0.1 x10^3/uL (0.0-0.7) Basophils # (Auto) 0.0 x10^3/uL (0.0-0.2) Prothrombin Time 13.9 SEC (11.7-14.0) Prothromb Time International Ratio 1.1 (0.8-1.1) Sodium Level 141 mmol/L (136-145) Potassium Level 2.9 mmol/L (3.5-5.1) Chloride Level 103 mmol/L (98-107) Carbon Dioxide Level 28 mmol/L (21-32) Anion Gap 10 (6-14) Blood Urea Nitrogen 16 mg/dL (8-26) Creatinine 1.2 mg/dL (0.7-1.3) Estimated GFR (Cockcroft-Gault) 66.4 BUN/Creatinine Ratio 13 (6-20) Glucose Level 90 mg/dL (70-99) Calcium Level 8.3 mg/dL (8.5-10.1) Total Bilirubin 0.5 mg/dL (0.2-1.0) Aspartate Amino Transf (AST/SGOT) 24 U/L (15-37) Alanine Aminotransferase (ALT/SGPT) 33 U/L (16-63) Alkaline Phosphatase 44 U/L (46-116) Total Protein 6.6 g/dL (6.4-8.2) Albumin 2.5 g/dL (3.4-5.0) Albumin/Globulin Ratio 0.6 (1.0-1.7) Comments Chest x-ray reviewed 5-2-22. No focal infiltrate. Impression . 1. Acute respiratory failure secondary to acetaminophen overdose. He was also positive for meth. S/p extubation 07/03/2021. 2. Acute toxic encephalopathy. Resolved. 3. Metabolic acidosis related to acetaminophen overdose and ATN. Improved. 4. Abnormal liver function test. 5. Acute kidney injury. 6. Lactic acidosis. 7. No significant coagulopathy. 8. Persistent fever. No focal infiltrate in the lungs. Chest x-ray 07/05/2021 clear. Possible urinary tract infection. Infectious disease has been consulted and are following. Antibiotics broadened. 9. COVID-negative and influenza negative. Patient has been adequately vaccinated for COVID. Plan . 1. Discussed with RN. 2. Panculture. Initiate broad-spectrum antibiotic. Infectious disease following. Suspected urinary tract infection as a source of fever. Await cultures. 3. Monitor liver function test 4. Monitor INR . So far stable. 5. Status post fall N-acetylcysteine protocol. Levels are back to normal. 6. Continue to monitor renal function. Discussed with RN HARLEY MOFFETT MD July 05, 2021 10:17
[2021-07-05 11:00] VITALS: BP 115/72
--- NOTE | 2021-07-05 11:08 | PDOC ---
Date of Service: DATE: 07/05/21 TIME: 11:04 Subjective: Subjective: No GI complaints. Objective: Objective: D/w nurse - eating and stooling without issue, c/o headache. Vital Signs: Vital Signs Date Time Temp Pulse Resp B/P (MAP) Pulse Ox O2 Delivery O2 Flow Rate FiO2 07/05/21 07:00 99.6 108 21 140/80 (100) 95 Room Air 99.6 Labs: Laboratory Tests Test 07/04/21 13:17 07/05/21 07:25 Urine Collection Type Unknown Urine Color (Auto) Yellow Urine Turbidity Hazy Urine pH (Auto) 5.5 Urine Specific [place] 1.022 Urine Protein (Auto) 30 mg/dL Urine Glucose (Auto)(UA) Negative mg/dL Urine Ketones (Auto) Trace mg/dL Urine Blood (Auto) Negative Urine Nitrite Positive Urine Bilirubin (Auto) Negative Urine Urobilinogen (Auto) Normal mg/dL Urine Leukocyte Esterase (Auto) Large Urine RBC 0 /HPF Urine WBC 11-20 /HPF Urine Bacteria Few /HPF Urine Mucus Mod /LPF White Blood Count 11.7 x10^3/uL Red Blood Count 4.15 x10^6/uL Hemoglobin 12.5 g/dL Hematocrit 36.4 % Mean Corpuscular Volume 88 fL Mean Corpuscular Hemoglobin 30 pg Mean Corpuscular Hemoglobin Concent 34 g/dL Red Cell Distribution Width 13.5 % Platelet Count 247 x10^3/uL Neutrophils (%) (Auto) 73 % Lymphocytes (%) (Auto) 12 % Monocytes (%) (Auto) 13 % Eosinophils (%) (Auto) 1 % Basophils (%) (Auto) 0 % Neutrophils # (Auto) 8.5 x10^3/uL Lymphocytes # (Auto) 1.4 x10^3/uL Monocytes # (Auto) 1.5 x10^3/uL Eosinophils # (Auto) 0.1 x10^3/uL Basophils # (Auto) 0.0 x10^3/uL Prothrombin Time 13.9 SEC Prothromb Time International Ratio 1.1 Sodium Level 141 mmol/L Potassium Level 2.9 mmol/L Chloride Level 103 mmol/L Carbon Dioxide Level 28 mmol/L Anion Gap 10 Blood Urea Nitrogen 16 mg/dL Creatinine 1.2 mg/dL Estimated GFR (Cockcroft-Gault) 66.4 BUN/Creatinine Ratio 13 Glucose Level 90 mg/dL Calcium Level 8.3 mg/dL Total Bilirubin 0.5 mg/dL Aspartate Amino Transf (AST/SGOT) 24 U/L Alanine Aminotransferase (ALT/SGPT) 33 U/L Alkaline Phosphatase 44 U/L Total Protein 6.6 g/dL Albumin 2.5 g/dL Albumin/Globulin Ratio 0.6 Imaging: CXR 07/05 IMPRESSION: No focal airspace disease. PE: GEN: NAD, guards present LUNGS: CTAB anteriorly HEART: tachycardic ABD: S/ND/NT NEURO/PSYCH: A & O 3 A/P: Acetaminophen overdose - LFTs and INR normal s/p Mucomyst Fever, headache, UTI, hypokalemia COVID negative -- Stable GI-gooden. Justicifation of Admission Dx: Justifications for Admission: Justification of Admission Dx: Yes ERIN VAN July 05, 2021 11:08
--- NOTE | 2021-07-05 12:20 | PDOC ---
Infectious Disease Note Subjective: Subjective Patient continues to remain febrile Transferred out of ICU to fifth floor yesterday evening Complains of headache with fever Denies any sore throat, ear pain, sinus pain, nausea, vomiting, diarrhea, abdominal pain, symptoms, rash, joint pain Vital Signs: Vital Signs Vital Signs Date Time Temp Pulse Resp B/P (MAP) Pulse Ox O2 Delivery O2 Flow Rate FiO2 07/05/21 08:00 Room Air 07/05/21 07:00 99.6 108 21 140/80 (100) 95 99.6 Physical Exam: PHYSICAL EXAM GENERAL: Alert, awake male, in no acute distress, on room air. HEENT: Normocephalic, atraumatic. Anicteric. No thrush. Oral mucosa moist. NECK: Supple. LUNGS: Clear bilaterally. No wheezing. HEART: S1, S2. No gallops or murmurs. ABDOMEN: Soft, nontender, nondistended, no rebound or guarding. EXTREMITIES: No edema, no cyanosis. DERMATOLOGIC: Warm, dry, no generalized rash. NEUROLOGIC: Alert, oriented x 3, grossly nonfocal. PSYCHIATRIC: Calm and cooperative. Medications: Inpatient Meds: Medications reviewed. Labs: Lab Laboratory Tests Test 07/04/21 13:17 07/05/21 07:25 Urine Collection Type Unknown Urine Color (Auto) Yellow Urine Turbidity Hazy Urine pH (Auto) 5.5 (<5.0-8.0) Urine Specific [place] 1.022 (1.000-1.030) Urine Protein (Auto) 30 mg/dL (Negative) Urine Glucose (Auto)(UA) Negative mg/dL (Negative) Urine Ketones (Auto) Trace mg/dL (Negative) Urine Blood (Auto) Negative (Negative) Urine Nitrite Positive (Negative) Urine Bilirubin (Auto) Negative (Negative) Urine Urobilinogen (Auto) Normal mg/dL (Normal) Urine Leukocyte Esterase (Auto) Large (Negative) Urine RBC 0 /HPF (0-2) Urine WBC 11-20 /HPF (0-4) Urine Bacteria Few /HPF (0-FEW) Urine Mucus Mod /LPF White Blood Count 11.7 x10^3/uL (4.0-11.0) Red Blood Count 4.15 x10^6/uL (4.30-5.70) Hemoglobin 12.5 g/dL (13.0-17.5) Hematocrit 36.4 % (39.0-53.0) Mean Corpuscular Volume 88 fL (79-100) Mean Corpuscular Hemoglobin 30 pg (25-35) Mean Corpuscular Hemoglobin Concent 34 g/dL (31-37) Red Cell Distribution Width 13.5 % (11.5-14.5) Platelet Count 247 x10^3/uL (140-400) Neutrophils (%) (Auto) 73 % (31-73) Lymphocytes (%) (Auto) 12 % (24-48) Monocytes (%) (Auto) 13 % (0-9) Eosinophils (%) (Auto) 1 % (0-3) Basophils (%) (Auto) 0 % (0-3) Neutrophils # (Auto) 8.5 x10^3/uL (1.8-7.7) Lymphocytes # (Auto) 1.4 x10^3/uL (1.0-4.8) Monocytes # (Auto) 1.5 x10^3/uL (0.0-1.1) Eosinophils # (Auto) 0.1 x10^3/uL (0.0-0.7) Basophils # (Auto) 0.0 x10^3/uL (0.0-0.2) Prothrombin Time 13.9 SEC (11.7-14.0) Prothromb Time International Ratio 1.1 (0.8-1.1) Sodium Level 141 mmol/L (136-145) Potassium Level 2.9 mmol/L (3.5-5.1) Chloride Level 103 mmol/L (98-107) Carbon Dioxide Level 28 mmol/L (21-32) Anion Gap 10 (6-14) Blood Urea Nitrogen 16 mg/dL (8-26) Creatinine 1.2 mg/dL (0.7-1.3) Estimated GFR (Cockcroft-Gault) 66.4 BUN/Creatinine Ratio 13 (6-20) Glucose Level 90 mg/dL (70-99) Calcium Level 8.3 mg/dL (8.5-10.1) Total Bilirubin 0.5 mg/dL (0.2-1.0) Aspartate Amino Transf (AST/SGOT) 24 U/L (15-37) Alanine Aminotransferase (ALT/SGPT) 33 U/L (16-63) Alkaline Phosphatase 44 U/L (46-116) Total Protein 6.6 g/dL (6.4-8.2) Albumin 2.5 g/dL (3.4-5.0) Albumin/Globulin Ratio 0.6 (1.0-1.7) Objective: Assessment: 1. Fever, 2. Acute hypoxic respiratory failure secondary to acetaminophen overdose also was positive for meth, status post extubation 07/03/2021. 3. Tylenol overdose. 4. Acute toxic encephalopathy, resolved. 5. UTI. Buchanan removed. Groin line removed 6. Lactic acidosis with metabolic acidosis present on admission. 7. Abnormal liver function tests, improved. 8. Acute kidney injury with metabolic acidosis, improving. Plan: Plan of Care Continue meropenem and daptomycin CT head Follow-up urine cultures Groin line removed Buchanan has been removed Monitor cultures and labs Continue supportive care Continue aspiration precautions DILCIA MCKENZIE MD July 05, 2021 12:19
[2021-07-05 15:00] VITALS: BP 119/64
--- NOTE | 2021-07-05 15:38 | RAD ---
EXAM: CT head without contrast INDICATION: Headache COMPARISON: None TECHNIQUE: Axial CT imaging through the head without intravenous contrast. Sagittal and coronal refor mats were obtained. One or more of the following individualized dose reduction techniques were utilized for this examinat ion: 1. Automated exposure control 2. Adjustment of the mA and/or kV according to patient size 3. Use of iterative reconstruction technique. FINDINGS: The ventricles and sulci are normal. Morrison-white matter differentiation is maintained. There is no in tracranial hemorrhage, acute infarct, or mass lesion. Basal cisterns are clear. The skull and scalp are intact. There is moderate mucosal thickening and an air-fluid level right sph enoid sinus. The remaining paranasal sinuses and mastoid air cells are clear. Globes and orbits are i ntact. IMPRESSION: 1. No acute intracranial abnormality. 2. Right sphenoid sinusitis. Electronically signed by: Miesha Landry MD (07/05/2021 3:35 PM) [id number]
[2021-07-05] MEDS: DAPTOmycin (GENERIC) IVPB 500 MG in IV NORMAL SALINE 50ML 50 ML IV SCH (16:06)
--- NOTE | 2021-07-05 16:14 | PDOC ---
[employer] PROGRESS NOTE Date of Service DOS: DATE: 07/05/21 TIME: 16:11 Chief Complaint Chief Complaint Fevers: On IV antibiotics but continues to have fevers. Initial blood cultures negative. ID consulted continue IV antibiotics. Acute encephalopathy - metabolic, likely due to medication overdose, possibly also with amphetamine toxicity. Resolving Acetaminophen overdose -unclear if intentional or not. Status post NAC and fom epizole Chronic osteoarthritis pain -if acetaminophen negative and ibuprofen are given to the future would recommend to dose pill packs daily. Seizures - per [facility], resolved Respiratory failure -extubated 07/03/2021. TRISTIN - no renal dysfunction, likely vasomotor nephropathy. Will obtain non- contrast abdominal imaging to r/o obstructive uropathy vs medical renal disease Lactic acidosis - likely related to acetaminophen OD, will trend Amphetamine positive - unclear if intoxicated Borderline personality disorder -not on meds Hyperglycemia - A1c 5.5, no DM history hyponatremia - possibly hypervolemic FEN - NPO PPX - heparin FULL CODE Dispo - ICU cc time 33 min History of Present Illness History of Present Illness Mr Alarcon is a 40yo male w/ PMHx chronic osteoarthritis pain, seizure, borderline personality disorder who is an inmate [facility] for unresponsiveness and concern for overdose. History obtained from ED paperwork and from [place] [employer] off icers. He was found on morning wellness check this morning prior to 0400 laying in a pile of vomit with suspicion patient had taken #420 of 325 mg of acetaminophen. He has been incarcerated since 2005 per corrections officers. Labs at 0449 NA 142, K3 point delayed, BUN 14 CR 1.5, anion gap 22, glucose 243, lactic acid 5.3, calcium 7.6, bilirubin 0.3, AST 23, ALT 45, alkaline phosp hatase 52, albumin 3.4, acetaminophen level 383.8, salicylates 1.2, urine drug screen positive for amphetamines, urinalysis bland with glucosuria and ketonuria. Patient was notably somnolent, drooling with brown emesis, confused in ED, barley answering to his name, and was assessed as not protecting his airway ED physician elected to intubate patient. Chest radiograph with ET tube near ayanna gastric tube overlying gastric bubble below the diaphragm. No other abnormalities on CXR on my interpretation. Initial ABG 7.245/38.9/136.4 Repeat ABG 7.221/31.5/161 on AC mode 40 breaths/min per tidal volume 450 PEEP of 5 FiO2 40% 07/01: Seen on vent AC mode PEEP 5 FiO2 40%, ABG pH 7.29 this morning. Creatinine climbing to 3.5, urine output 5.7 L last 24 hours. ALT 85 now, INR 1.5. Acetaminophen level 50. CBC pending, CT abdomen/pelvis ordered. started on free water. 07/02: On vent AC mode PEEP 5 FiO2 40% with O2 saturations 90%. Creatinine still not improving. INR 1.4. Repeat morning labs pending acetaminophen level was 6.6 admit overnight planned continue Mucomyst until level is 0. Abdominal ultrasound with no renal disease or obstruction noted but diffuse hepatic steatosis noted. 07/03: WBC down to 15 NA 129, K3.2, CR improved to 1.8 albumin 2.8, INR 1.1, acetaminophen level was 0 as of 12:30 PM on 07/02/2021. Still seen on ventilator AC mode 40% FiO2 PEEP of 5 saturations 91%. Off Mucomyst. Discussed plan to extubate potentially today we will attempt vent wean. 07/04: Extubated on 07/03/2021 without event. Febrile up to 103 F overnight. Having some chills. Seen bedside in ICU with 2 corrections officers present. Creatinine to 1.5. Given his recent ibuprofen and acetaminophen overdose his only option for fever has been aspirin we will continue to do this as needed. Awaiting bedside swallow evaluation he is noted he is very hungry. 07/05 Evaluated examined at bedside. Still febrile overnight. Cultures repeated today. Continue IV antibiotics per infectious disease team. Reporting some headache CT scan ordered. Otherwise continuing current. Discussed with bedside RN. Vitals/I&O Vitals/I&O: Vital Signs Date Time Temp Pulse Resp B/P (MAP) Pulse Ox O2 Delivery O2 Flow Rate FiO2 07/05/21 11:00 99.8 104 20 115/72 (86) 94 Room Air 99.8 I & O 07/04/21 07/04/21 07/05/21 15:00 23:00 07:00 Intake Total 50 ml 2000 ml 50 ml Output Total 750 ml Balance 50 ml 1250 ml 50 ml Physical Exam Physical Exam: GENERAL: Alert, awake male, in no acute distress, on room air. HEENT: Normocephalic, atraumatic. Anicteric. No thrush. Oral mucosa moist. NECK: Supple. LUNGS: Clear bilaterally. No wheezing. HEART: S1, S2. No gallops or murmurs. ABDOMEN: Soft, nontender, nondistended, no rebound or guarding. EXTREMITIES: No edema, no cyanosis. DERMATOLOGIC: Warm, dry, no generalized rash. NEUROLOGIC: Alert, oriented x 3, grossly nonfocal. PSYCHIATRIC: Calm and cooperative. General: Alert, Oriented X3, Cooperative, mild distress Heart: Regular rate, Normal S1, Normal S2 Lungs: Clear Abdomen: Normal bowel sounds, Soft, No tenderness, No hepatosplenomegaly, No masses Extremities: No clubbing, No cyanosis, No edema, Normal pulses, No tenderness/swelling Skin: No rashes, No breakdown, No significant lesion Labs Labs: Laboratory Tests Test 07/05/21 07:25 White Blood Count 11.7 x10^3/uL (4.0-11.0) Red Blood Count 4.15 x10^6/uL (4.30-5.70) Hemoglobin 12.5 g/dL (13.0-17.5) Hematocrit 36.4 % (39.0-53.0) Mean Corpuscular Volume 88 fL (79-100) Mean Corpuscular Hemoglobin 30 pg (25-35) Mean Corpuscular Hemoglobin Concent 34 g/dL (31-37) Red Cell Distribution Width 13.5 % (11.5-14.5) Platelet Count 247 x10^3/uL (140-400) Neutrophils (%) (Auto) 73 % (31-73) Lymphocytes (%) (Auto) 12 % (24-48) Monocytes (%) (Auto) 13 % (0-9) Eosinophils (%) (Auto) 1 % (0-3) Basophils (%) (Auto) 0 % (0-3) Neutrophils # (Auto) 8.5 x10^3/uL (1.8-7.7) Lymphocytes # (Auto) 1.4 x10^3/uL (1.0-4.8) Monocytes # (Auto) 1.5 x10^3/uL (0.0-1.1) Eosinophils # (Auto) 0.1 x10^3/uL (0.0-0.7) Basophils # (Auto) 0.0 x10^3/uL (0.0-0.2) Prothrombin Time 13.9 SEC (11.7-14.0) Prothromb Time International Ratio 1.1 (0.8-1.1) Sodium Level 141 mmol/L (136-145) Potassium Level 2.9 mmol/L (3.5-5.1) Chloride Level 103 mmol/L (98-107) Carbon Dioxide Level 28 mmol/L (21-32) Anion Gap 10 (6-14) Blood Urea Nitrogen 16 mg/dL (8-26) Creatinine 1.2 mg/dL (0.7-1.3) Estimated GFR (Cockcroft-Gault) 66.4 BUN/Creatinine Ratio 13 (6-20) Glucose Level 90 mg/dL (70-99) Calcium Level 8.3 mg/dL (8.5-10.1) Total Bilirubin 0.5 mg/dL (0.2-1.0) Aspartate Amino Transf (AST/SGOT) 24 U/L (15-37) Alanine Aminotransferase (ALT/SGPT) 33 U/L (16-63) Alkaline Phosphatase 44 U/L (46-116) Total Protein 6.6 g/dL (6.4-8.2) Albumin 2.5 g/dL (3.4-5.0) Albumin/Globulin Ratio 0.6 (1.0-1.7) Assessment and Plan Assessmemt and Plan Problems Medical Problems: (1) Acetaminophen overdose Status: Acute Comment Review of Relevant I have reviewed the following items cherelle (where applicable) has been applied. Medications: Current Medications Medications (Trade) Dose Ordered Sig/Danielito Route PRN Reason Start Time Stop Time Status Last Admin Dose Admin Potassium Chloride/Water 100 ml @ 100 mls/hr Q1H IV 07/05/21 10:00 07/05/21 11:59 DC 07/05/21 11:00 Justifications for Admission Other Justification PILAR PAREKH MD July 05, 2021 16:14
[2021-07-05 19:00] VITALS: BP 116/75
[2021-07-05] MEDS: traMADol 50 MG TABLET PO PRN (21:50)
[2021-07-05 23:00] VITALS: BP 116/68
[2021-07-06 03:00] VITALS: BP 124/72
[2021-07-06] MEDS: MEROPENEM 500 MG in IV NORMAL SALINE 50ML 50 ML IV SCH ×4 (05:47→23:36)
[2021-07-06] MEDS: PANTOPRAZOLE IV PUSH 40 MG VIAL. IVP SCH (05:48)
[2021-07-06] MEDS: HEPARIN for SUB-Q USE 5,000 UNIT/ML VIAL. SQ SCH ×3 (05:57→21:43)
[2021-07-06] MEDS: traMADol 50 MG TABLET PO PRN ×2 (06:02→14:44)
[2021-07-06 07:00] VITALS: BP 117/81
[2021-07-06 08:43] LABS: CALCIUM 8.9 mg/dL (8.5-10.1); CREATININE 1.2 mg/dL (0.7-1.3); GFR 66.4; POTASSIUM 3.1 mmol/L (3.5-5.1)
--- NOTE | 2021-07-06 10:00 | PDOC ---
Date of Service: DATE: 07/06/21 TIME: 09:59 Subjective: Subjective: No GI complaints. Objective: Vital Signs: Vital Signs Date Time Temp Pulse Resp B/P (MAP) Pulse Ox O2 Delivery O2 Flow Rate FiO2 07/06/21 07:00 98.5 93 18 117/81 (93) 93 Room Air 98.5 07/05/21 22:20 2.0 Labs: Laboratory Tests Test 07/06/21 06:30 Sodium Level 141 mmol/L Potassium Level 3.1 mmol/L Chloride Level 102 mmol/L Carbon Dioxide Level 30 mmol/L Anion Gap 9 Blood Urea Nitrogen 19 mg/dL Creatinine 1.2 mg/dL Estimated GFR (Cockcroft-Gault) 66.4 Glucose Level 76 mg/dL Calcium Level 8.9 mg/dL CULTURE URINE Preliminary GREATER THAN 100,000 CFU/ML GRAM NEGATIVE RODS on 07/06/21 at 0934. [place] [address] regional sales director: Leticia Espinoza MD Imaging: Head CT 07/05 IMPRESSION: 1. No acute intracranial abnormality. 2. Right sphenoid sinusitis. PE: GEN: NAD - guards present LUNGS: CTAB HEART: RRR ABD: S/ND/NT NEURO/PSYCH: A & O 3 - was asleep A/P: Acetaminophen overdose - LFTs and INR normal s/p Mucomyst UTI Hypokalemia - better -- Stable GI-gooden. Can change to PO PPI. Justicifation of Admission Dx: Justifications for Admission: Justification of Admission Dx: Yes ERIN VAN July 06, 2021 10:00
--- NOTE | 2021-07-06 10:44 | PDOC ---
PULMONARY PROGRESS NOTES DATE: 07/06/21 TIME: 10:44 Subjective Patient extubated 07/03/2021. Patient not more short of air, had a fever yesterday Vitals Vital Signs Date Time Temp Pulse Resp B/P (MAP) Pulse Ox O2 Delivery O2 Flow Rate FiO2 07/06/21 08:00 Room Air 07/06/21 07:00 98.5 93 18 117/81 (93) 93 98.5 07/05/21 22:20 2.0 ROS: No Nausea, No Chest Pain, No Abdominal Pain, No Increase Cough General: Alert, No acute distress Lungs: Clear Cardiovascular: S1 Abdomen: Soft Extremities: No Edema Skin: Warm Labs Laboratory Tests Test 07/04/21 13:17 07/05/21 07:25 07/06/21 06:30 Urine Collection Type Unknown Urine Color (Auto) Yellow Urine Turbidity Hazy Urine pH (Auto) 5.5 (<5.0-8.0) Urine Specific [place] 1.022 (1.000-1.030) Urine Protein (Auto) 30 mg/dL (Negative) Urine Glucose (Auto)(UA) Negative mg/dL (Negative) Urine Ketones (Auto) Trace mg/dL (Negative) Urine Blood (Auto) Negative (Negative) Urine Nitrite Positive (Negative) Urine Bilirubin (Auto) Negative (Negative) Urine Urobilinogen (Auto) Normal mg/dL (Normal) Urine Leukocyte Esterase (Auto) Large (Negative) Urine RBC 0 /HPF (0-2) Urine WBC 11-20 /HPF (0-4) Urine Bacteria Few /HPF (0-FEW) Urine Mucus Mod /LPF White Blood Count 11.7 x10^3/uL (4.0-11.0) Red Blood Count 4.15 x10^6/uL (4.30-5.70) Hemoglobin 12.5 g/dL (13.0-17.5) Hematocrit 36.4 % (39.0-53.0) Mean Corpuscular Volume 88 fL (79-100) Mean Corpuscular Hemoglobin 30 pg (25-35) Mean Corpuscular Hemoglobin Concent 34 g/dL (31-37) Red Cell Distribution Width 13.5 % (11.5-14.5) Platelet Count 247 x10^3/uL (140-400) Neutrophils (%) (Auto) 73 % (31-73) Lymphocytes (%) (Auto) 12 % (24-48) Monocytes (%) (Auto) 13 % (0-9) Eosinophils (%) (Auto) 1 % (0-3) Basophils (%) (Auto) 0 % (0-3) Neutrophils # (Auto) 8.5 x10^3/uL (1.8-7.7) Lymphocytes # (Auto) 1.4 x10^3/uL (1.0-4.8) Monocytes # (Auto) 1.5 x10^3/uL (0.0-1.1) Eosinophils # (Auto) 0.1 x10^3/uL (0.0-0.7) Basophils # (Auto) 0.0 x10^3/uL (0.0-0.2) Prothrombin Time 13.9 SEC (11.7-14.0) Prothromb Time International Ratio 1.1 (0.8-1.1) Sodium Level 141 mmol/L (136-145) 141 mmol/L (136-145) Potassium Level 2.9 mmol/L (3.5-5.1) 3.1 mmol/L (3.5-5.1) Chloride Level 103 mmol/L (98-107) 102 mmol/L (98-107) Carbon Dioxide Level 28 mmol/L (21-32) 30 mmol/L (21-32) Anion Gap 10 (6-14) 9 (6-14) Blood Urea Nitrogen 16 mg/dL (8-26) 19 mg/dL (8-26) Creatinine 1.2 mg/dL (0.7-1.3) 1.2 mg/dL (0.7-1.3) Estimated GFR (Cockcroft-Gault) 66.4 66.4 BUN/Creatinine Ratio 13 (6-20) Glucose Level 90 mg/dL (70-99) 76 mg/dL (70-99) Calcium Level 8.3 mg/dL (8.5-10.1) 8.9 mg/dL (8.5-10.1) Total Bilirubin 0.5 mg/dL (0.2-1.0) Aspartate Amino Transf (AST/SGOT) 24 U/L (15-37) Alanine Aminotransferase (ALT/SGPT) 33 U/L (16-63) Alkaline Phosphatase 44 U/L (46-116) Total Protein 6.6 g/dL (6.4-8.2) Albumin 2.5 g/dL (3.4-5.0) Albumin/Globulin Ratio 0.6 (1.0-1.7) Laboratory Tests Test 07/06/21 06:30 Sodium Level 141 mmol/L (136-145) Potassium Level 3.1 mmol/L (3.5-5.1) Chloride Level 102 mmol/L (98-107) Carbon Dioxide Level 30 mmol/L (21-32) Anion Gap 9 (6-14) Blood Urea Nitrogen 19 mg/dL (8-26) Creatinine 1.2 mg/dL (0.7-1.3) Estimated GFR (Cockcroft-Gault) 66.4 Glucose Level 76 mg/dL (70-99) Calcium Level 8.9 mg/dL (8.5-10.1) Comments Chest x-ray reviewed 07-05-21. No focal infiltrate. Impression . 1. Acute respiratory failure secondary to acetaminophen overdose. He was also positive for meth. S/p extubation 07/03/2021. 2. Acute toxic encephalopathy. Resolved. 3. Metabolic acidosis related to acetaminophen overdose and ATN. Improved. 4. Abnormal liver function test. 5. Acute kidney injury. 6. Lactic acidosis. 7. No significant coagulopathy. 9. COVID-negative and influenza negative. Patient has been adequately vaccinated for COVID. 10 fever 11. UTI E. coli Plan . 1. Discussed with RN. 2. Panculture. Initiate broad-spectrum antibiotic. Infectious disease following. Suspected urinary tract infection as a source of fever. Await cultures. 3. Monitor liver function test 4. Monitor INR . So far stable. 5. Status post fall N-acetylcysteine protocol. Levels are back to normal. 6. Continue to monitor renal function. Discussed with DANII VILLEGAS MD July 06, 2021 10:44
[2021-07-06 11:00] VITALS: BP 116/74
--- NOTE | 2021-07-06 11:12 | PDOC ---
DATE OF SERVICE DATE: 07/06/21 TIME: 11:11 SUBJECTIVE ROS Denies any N/V or SOB. OBJECTIVE Vital Signs Vital Signs Date Time Temp Pulse Resp B/P (MAP) Pulse Ox O2 Delivery O2 Flow Rate FiO2 07/06/21 08:00 Room Air 07/06/21 07:00 98.5 93 18 117/81 (93) 93 98.5 07/05/21 22:20 2.0 I & 0 Intake and Output 07/06/21 07:00 Intake Total 600 ml Balance 600 ml Intake Oral 250 ml IV Total 350 ml PHYSICAL EXAM Physical Exam General: NAD, HEENT: Atraumatic, EOMI, Mucous membr. moist/pink, On RA Lungs: CTA, Non labored Heart: S1S2, RRR, Abdomen: Normal bowel sounds, Soft, No tenderness, No hepatosplenomegaly, No masses Extremities: No clubbing, No cyanosis, No edema, Skin: No rashes, Neuro: Grossly normal Psych/Mental Status: Cooperative GILBERTO echeverriad DIAGNOSIS/ASSESSMENT Assessment & Plan TRISTIN suspect ATN vs AIN , Non Oliguric , Creatinine trended down , stable , UOP not recorded . UA unremarkable Renal US- unremarkable . Supportive care, Maintain fluid balance HypoNatremia - Resolved HypoKalemia- Replace Acidosis- Resolved Acetaminophen overdose Resolved N-acetylcysteine and fomepizole . Patient reports he took large amounts of both Acetaminophen and Ibuprofen Acute encephalopathy - metabolic with amphetamine toxicity Seizures - per detention, resolved Lactic acidosis -resolved likely related to acetaminophen OD, Amphetamine positive Borderline personality disorder -not on meds COMMENT/RELEVANT DATA Meds Current Medications Medications (Trade) Dose Ordered Sig/Danielito Start Time Stop Time Status Last Admin Dose Admin Acetylcysteine 10 gm/Dextrose 1,050 ml @ 65.625 mls/ hr 1X ONCE 06/30/21 05:30 06/30/21 21:29 DC 06/30/21 05:22 65.625 MLS/HR Acetylcysteine 12 gm/Dextrose 1,060 ml @ 110 mls/hr Q10H 06/30/21 16:00 07/02/21 12:00 DC 07/02/21 00:35 110 MLS/HR Acetylcysteine 15 gm/Dextrose 275 ml @ 200 mls/hr 1X ONCE 06/30/21 04:00 06/30/21 05:22 DC 06/30/21 03:52 200 MLS/HR Albuterol Sulfate (Ventolin Neb Soln) 2.5 mg PRN Q4HRS PRN 07/03/21 22:00 Albuterol/ Ipratropium (Duoneb) 3 ml Q4HRS W/A 07/03/21 22:00 07/03/21 21:53 DC 07/03/21 21:30 3 ML Aspirin (Aspirin Chewable) 81 mg 1X ONCE 07/04/21 04:45 07/04/21 04:46 DC 07/04/21 05:42 81 MG Aspirin (Melia Aspirin) 325 mg PRN BID PRN 07/04/21 09:00 07/05/21 16:11 325 MG Daptomycin 500 mg/ Sodium Chloride 50 ml @ 100 mls/hr Q24H 07/04/21 16:00 07/05/21 16:06 100 MLS/HR Dextrose/Sodium Chloride 1,000 ml @ 75 mls/hr [id number] 07/02/21 08:30 07/03/21 12:05 DC Etomidate (Amidate) 20 mg STK-MED ONCE 06/30/21 04:30 06/30/21 08:42 DC Fentanyl Citrate (Fentanyl 2ml Vial) 100 mcg 1X ONCE 06/30/21 04:30 06/30/21 04:31 DC Fomepizole 1 gm/ Sodium Chloride 101 ml @ 202 mls/hr Q12HR 06/30/21 22:00 07/02/21 09:30 DC 07/02/21 09:34 202 MLS/HR Fomepizole 1.5 gm/ Sodium Chloride 101.5 ml @ 203 mls/hr 1X ONCE 06/30/21 10:00 06/30/21 10:29 DC 06/30/21 09:44 203 MLS/HR Glycerin/ Hypromellose/ Polyethylene (Artificial Tears) 1 drop PRN Q15MIN PRN 07/01/21 07:15 07/03/21 12:10 DC 07/01/21 08:44 1 DROP Heparin Sodium (Porcine) (Heparin Sodium) 5,000 unit Q8HRS 07/01/21 14:00 07/06/21 05:57 5,000 UNIT Meropenem 500 mg/ Sodium Chloride 50 ml @ 100 mls/hr Q6HRS 07/04/21 12:00 07/06/21 05:47 100 MLS/HR Ondansetron HCl (Zofran) 4 mg PRN Q4HRS PRN 07/01/21 07:15 07/03/21 15:04 4 MG Pantoprazole Sodium (PROTONIX VIAL for IV PUSH) 40 mg DAILYAC 07/01/21 07:30 07/06/21 10:01 DC 07/06/21 05:48 40 MG Pantoprazole Sodium (Protonix) 40 mg DAILYAC 07/07/21 07:30 Potassium Bicarbonate (Potassium Effervescent Tablet) 40 meq 1X ONCE 07/03/21 08:30 07/03/21 08:31 DC 07/03/21 09:13 40 MEQ Potassium Chloride/Water 100 ml @ 100 mls/hr Q1H 07/05/21 10:00 07/05/21 11:59 DC 07/05/21 11:00 100 MLS/HR Propofol 100 ml @ 3.135 mls/ hr CONT PRN 06/30/21 04:30 07/03/21 12:10 DC 07/03/21 06:42 28.215 MLS/HR Propofol (Diprivan) 200 mg 1X ONCE 06/30/21 04:30 06/30/21 04:31 DC Rocuronium [place] (Zemuron) 50 mg STK-MED ONCE 06/30/21 04:30 06/30/21 08:42 DC Sodium Bicarbonate 50 meq/Dextrose 1,050 ml @ 125 mls/hr Q8H24M 07/01/21 08:00 07/02/21 08:30 DC 07/02/21 00:35 125 MLS/HR Sodium Bicarbonate (Sodium Bicarb Adult 8.4% Syr) 50 meq 1X ONCE 06/30/21 09:45 06/30/21 09:46 DC 06/30/21 09:44 50 MEQ Sodium Chloride 1,000 ml @ 75 mls/hr [id number] 07/02/21 09:15 07/04/21 14:34 DC 07/04/21 00:58 75 MLS/HR Tramadol HCl (Ultram) 50 mg PRN Q6HRS PRN 07/05/21 21:15 07/06/21 06:02 50 MG Lab Laboratory Tests Test 07/06/21 06:30 Sodium Level 141 mmol/L (136-145) Potassium Level 3.1 mmol/L (3.5-5.1) Chloride Level 102 mmol/L (98-107) Carbon Dioxide Level 30 mmol/L (21-32) Anion Gap 9 (6-14) Blood Urea Nitrogen 19 mg/dL (8-26) Creatinine 1.2 mg/dL (0.7-1.3) Estimated GFR (Cockcroft-Gault) 66.4 Glucose Level 76 mg/dL (70-99) Calcium Level 8.9 mg/dL (8.5-10.1) Results All relevant outside records, renal labs, imaging studies, telemetry/EKG's were reviewed. Justicifation of Admission Dx: Justifications for Admission: Justification of Admission Dx: Yes JM GOODMAN MD July 06, 2021 11:12
--- NOTE | 2021-07-06 13:41 | PDOC ---
Infectious Disease Note Subjective: Subjective Pt feels better fever improved Vital Signs: Vital Signs Vital Signs Date Time Temp Pulse Resp B/P (MAP) Pulse Ox O2 Delivery O2 Flow Rate FiO2 07/06/21 08:00 Room Air 07/06/21 07:00 98.5 93 18 117/81 (93) 93 98.5 07/05/21 22:20 2.0 Physical Exam: PHYSICAL EXAM GENERAL: Alert, awake male, in no acute distress, on room air. HEENT: Normocephalic, atraumatic. Anicteric. No thrush. Oral mucosa moist. NECK: Supple. LUNGS: Clear bilaterally. No wheezing. HEART: S1, S2. No gallops or murmurs. ABDOMEN: Soft, nontender, nondistended, no rebound or guarding. EXTREMITIES: No edema, no cyanosis. DERMATOLOGIC: Warm, dry, no generalized rash. NEUROLOGIC: Alert, oriented x 3, grossly nonfocal. PSYCHIATRIC: Calm and cooperative. Medications: Inpatient Meds: Medications reviewed. Labs: Lab Laboratory Tests Test 07/06/21 06:30 Sodium Level 141 mmol/L (136-145) Potassium Level 3.1 mmol/L (3.5-5.1) Chloride Level 102 mmol/L (98-107) Carbon Dioxide Level 30 mmol/L (21-32) Anion Gap 9 (6-14) Blood Urea Nitrogen 19 mg/dL (8-26) Creatinine 1.2 mg/dL (0.7-1.3) Estimated GFR (Cockcroft-Gault) 66.4 Glucose Level 76 mg/dL (70-99) Calcium Level 8.9 mg/dL (8.5-10.1) Objective: Assessment: 1. Fever,UTI, 2. Acute hypoxic respiratory failure secondary to acetaminophen overdose also was positive for meth, status post extubation 07/03/2021. 3. Tylenol overdose. 4. Acute toxic encephalopathy, resolved. 5. UTI. E coli 6. Lactic acidosis with metabolic acidosis present on admission. 7. Abnormal liver function tests, improved. 8. Acute kidney injury with metabolic acidosis, improving. Plan: Plan of Care Continue meropenem and daptomycin CT head sphenoid sinusitis Groin line removed Buchanan has been removed Monitor cultures and labs Continue supportive care Continue aspiration precautions DILCIA MCKENZIE MD July 06, 2021 13:40
[2021-07-06 15:00] VITALS: BP 120/69
[2021-07-06] MEDS: ONDANSETRON PF 4 MG/2 ML VIAL. IVP PRN (17:35)
[2021-07-06 19:00] VITALS: BP 124/78
--- NOTE | 2021-07-06 21:56 | PDOC ---
[facility] PROGRESS NOTE Date of Service DOS: DATE: 07/06/21 TIME: 21:55 Chief Complaint Chief Complaint Fevers: On IV antibiotics but continues to have fevers. Initial blood cultures negative. ID consulted continue IV antibiotics. Acute encephalopathy - metabolic, likely due to medication overdose, possibly also with amphetamine toxicity. Resolving Acetaminophen overdose -unclear if intentional or not. Status post NAC and fom epizole Chronic osteoarthritis pain -if acetaminophen negative and ibuprofen are given to the future would recommend to dose pill packs daily. Seizures - per [facility], resolved Respiratory failure -extubated 07/03/2021. TRISTIN - no renal dysfunction, likely vasomotor nephropathy. Will obtain non- contrast abdominal imaging to r/o obstructive uropathy vs medical renal disease Lactic acidosis - likely related to acetaminophen OD, will trend Amphetamine positive - unclear if intoxicated Borderline personality disorder -not on meds Hyperglycemia - A1c 5.5, no DM history hyponatremia - possibly hypervolemic FEN - NPO PPX - heparin FULL CODE Dispo - ICU cc time 33 min History of Present Illness History of Present Illness Mr Alarcon is a 40yo male w/ PMHx chronic osteoarthritis pain, seizure, borderline personality disorder who is an inmate brought from [facility] for unresponsiveness and concern for overdose. History obtained from ED paperwork and from [place] [employer] off icers. He was found on morning wellness check this morning prior to 0400 laying in a pile of vomit with suspicion patient had taken #420 of 325 mg of acetaminophen. He has been incarcerated since 2005 per corrections officers. Labs at 0449 NA 142, K3 point delayed, BUN 14 CR 1.5, anion gap 22, glucose 243, lactic acid 5.3, calcium 7.6, bilirubin 0.3, AST 23, ALT 45, alkaline phosp hatase 52, albumin 3.4, acetaminophen level 383.8, salicylates 1.2, urine drug screen positive for amphetamines, urinalysis bland with glucosuria and ketonuria. Patient was notably somnolent, drooling with brown emesis, confused in ED, barley answering to his name, and was assessed as not protecting his airway ED physician elected to intubate patient. Chest radiograph with ET tube near ayanna gastric tube overlying gastric bubble below the diaphragm. No other abnormalities on CXR on my interpretation. Initial ABG 7.245/38.9/136.4 Repeat ABG 7.221/31.5/161 on AC mode 40 breaths/min per tidal volume 450 PEEP of 5 FiO2 40% 07/01: Seen on vent AC mode PEEP 5 FiO2 40%, ABG pH 7.29 this morning. Creatinine climbing to 3.5, urine output 5.7 L last 24 hours. ALT 85 now, INR 1.5. Acetaminophen level 50. CBC pending, CT abdomen/pelvis ordered. started on free water. 07/02: On vent AC mode PEEP 5 FiO2 40% with O2 saturations 90%. Creatinine still not improving. INR 1.4. Repeat morning labs pending acetaminophen level was 6.6 admit overnight planned continue Mucomyst until level is 0. Abdominal ultrasound with no renal disease or obstruction noted but diffuse hepatic steatosis noted. 07/03: WBC down to 15 NA 129, K3.2, CR improved to 1.8 albumin 2.8, INR 1.1, acetaminophen level was 0 as of 12:30 PM on 07/02/2021. Still seen on ventilator AC mode 40% FiO2 PEEP of 5 saturations 91%. Off Mucomyst. Discussed plan to extubate potentially today we will attempt vent wean. 07/04: Extubated on 07/03/2021 without event. Febrile up to 103 F overnight. Having some chills. Seen bedside in ICU with 2 corrections officers present. Creatinine to 1.5. Given his recent ibuprofen and acetaminophen overdose his only option for fever has been aspirin we will continue to do this as needed. Awaiting bedside swallow evaluation he is noted he is very hungry. 07/05 Evaluated examined at bedside. Still febrile overnight. Cultures repeated today. Continue IV antibiotics per infectious disease team. Reporting some headache CT scan ordered. Otherwise continuing current. Discussed with bedside RN. 07/06 Patient evaluated examined at bedside. No further fevers. Continue current antibiotics. Consult and recommendations reviewed. Urine returned positive for E. coli today. Continue current antibiotics. May be discharged before the weekend. Discussed with bedside RN. Vitals/I&O Vitals/I&O: Vital Signs Date Time Temp Pulse Resp B/P (MAP) Pulse Ox O2 Delivery O2 Flow Rate FiO2 07/06/21 19:00 98.7 105 20 124/78 (93) 100 Room Air 98.7 07/05/21 22:20 2.0 I & O 07/05/21 07/05/21 07/06/21 15:00 23:00 07:00 Intake Total 150 ml 450 ml Balance 150 ml 450 ml Physical Exam Physical Exam: GENERAL: Alert, awake male, in no acute distress, on room air. HEENT: Normocephalic, atraumatic. Anicteric. No thrush. Oral mucosa moist. NECK: Supple. LUNGS: Clear bilaterally. No wheezing. HEART: S1, S2. No gallops or murmurs. ABDOMEN: Soft, nontender, nondistended, no rebound or guarding. EXTREMITIES: No edema, no cyanosis. DERMATOLOGIC: Warm, dry, no generalized rash. NEUROLOGIC: Alert, oriented x 3, grossly nonfocal. PSYCHIATRIC: Calm and cooperative. General: Alert, Oriented X3, Cooperative, mild distress Heart: Regular rate, Normal S1, Normal S2 Lungs: Clear Abdomen: Normal bowel sounds, Soft, No tenderness, No hepatosplenomegaly, No masses Extremities: No clubbing, No cyanosis, No edema, Normal pulses, No tenderness/swelling Skin: No rashes, No breakdown, No significant lesion Labs Labs: Laboratory Tests Test 07/06/21 06:30 Sodium Level 141 mmol/L (136-145) Potassium Level 3.1 mmol/L (3.5-5.1) Chloride Level 102 mmol/L (98-107) Carbon Dioxide Level 30 mmol/L (21-32) Anion Gap 9 (6-14) Blood Urea Nitrogen 19 mg/dL (8-26) Creatinine 1.2 mg/dL (0.7-1.3) Estimated GFR (Cockcroft-Gault) 66.4 Glucose Level 76 mg/dL (70-99) Calcium Level 8.9 mg/dL (8.5-10.1) Assessment and Plan Assessmemt and Plan Problems Medical Problems: (1) Acetaminophen overdose Status: Acute Comment Review of Relevant I have reviewed the following items cherelle (where applicable) has been applied. Justifications for Admission Other Justification PILAR PAREKH MD July 06, 2021 21:56
[2021-07-06 23:00] VITALS: BP 120/77
[2021-07-06] MEDS: BENZOCAINE/MENTHOL LOZENGE. PO PRN (23:36)
[2021-07-07 03:00] VITALS: BP 109/79
[2021-07-07] MEDS: HEPARIN for SUB-Q USE 5,000 UNIT/ML VIAL. SQ SCH ×3 (06:10→21:41)
[2021-07-07] MEDS: MEROPENEM 500 MG in IV NORMAL SALINE 50ML 50 ML IV SCH ×2 (06:16→12:23)
[2021-07-07] MEDS: traMADol 50 MG TABLET PO PRN ×3 (06:16→21:38)
[2021-07-07 07:00] VITALS: BP 120/77
[2021-07-07] MEDS: PANTOPRAZOLE 40 MG TABLET.DR. PO SCH (09:04)
--- NOTE | 2021-07-07 09:05 | PDOC ---
DATE OF SERVICE DATE: 07/07/21 TIME: 09:04 SUBJECTIVE ROS Denies any N/V or SOB. Denies any urinary complaints, reports good uop States he is having a headache, coy rt side of head and Sore throat since this morning OBJECTIVE Vital Signs Vital Signs Date Time Temp Pulse Resp B/P (MAP) Pulse Ox O2 Delivery O2 Flow Rate FiO2 07/07/21 07:00 98.6 100 18 120/77 (91) 96 Room Air 98.6 07/07/21 06:46 2.0 I & 0 Intake and Output 07/07/21 07:00 Intake Total 50 ml Balance 50 ml IV Total 50 ml PHYSICAL EXAM Physical Exam GEGeneral: NAD, HEENT: Atraumatic, EOMI, Mucous membr. moist/pink, On RA Lungs: CTA, Non labored Heart: S1S2, RRR, Abdomen: Normal bowel sounds, Soft, No tenderness, No hepatosplenomegaly, No masses Extremities: No clubbing, No cyanosis, No edema, Skin: No rashes, Neuro: Grossly normal Psych/Mental Status: Cooperative Buchanan dced DIAGNOSIS/ASSESSMENT Assessment & Plan TRISTIN suspect ATN vs AIN , Non Oliguric , Creatinine trended down , stable ,No labs this morning UOP not recorded . UA unremarkable Renal US- unremarkable . Supportive care, Maintain fluid balance HypoNatremia - Resolved HypoKalemia- Replace Acidosis- Resolved Acetaminophen overdose Resolved N-acetylcysteine and fomepizole . Patient reports he took large amounts of both Acetaminophen and Ibuprofen Acute encephalopathy - metabolic with amphetamine toxicity Seizures - per [facility], resolved Lactic acidosis -resolved likely related to acetaminophen OD, Amphetamine positive Borderline personality disorder -not on meds COMMENT/RELEVANT DATA Meds Current Medications Medications (Trade) Dose Ordered Sig/Danielito Start Time Stop Time Status Last Admin Dose Admin Acetylcysteine 10 gm/Dextrose 1,050 ml @ 65.625 mls/ hr 1X ONCE 06/30/21 05:30 06/30/21 21:29 DC 06/30/21 05:22 65.625 MLS/HR Acetylcysteine 12 gm/Dextrose 1,060 ml @ 110 mls/hr Q10H 06/30/21 16:00 07/02/21 12:00 DC 07/02/21 00:35 110 MLS/HR Acetylcysteine 15 gm/Dextrose 275 ml @ 200 mls/hr 1X ONCE 06/30/21 04:00 06/30/21 05:22 DC 06/30/21 03:52 200 MLS/HR Albuterol Sulfate (Ventolin Neb Soln) 2.5 mg PRN Q4HRS PRN 07/03/21 22:00 Albuterol/ Ipratropium (Duoneb) 3 ml Q4HRS W/A 07/03/21 22:00 07/03/21 21:53 DC 07/03/21 21:30 3 ML Aspirin (Aspirin Chewable) 81 mg 1X ONCE 07/04/21 04:45 07/04/21 04:46 DC 07/04/21 05:42 81 MG Aspirin (Melia Aspirin) 325 mg PRN BID PRN 07/04/21 09:00 07/05/21 16:11 325 MG Daptomycin 500 mg/ Sodium Chloride 50 ml @ 100 mls/hr Q24H 07/04/21 16:00 07/06/21 14:30 DC 07/05/21 16:06 100 MLS/HR Dextrose/Sodium Chloride 1,000 ml @ 75 mls/hr [id number] 07/02/21 08:30 07/03/21 12:05 DC Etomidate (Amidate) 20 mg STK-MED ONCE 06/30/21 04:30 06/30/21 08:42 DC Fentanyl Citrate (Fentanyl 2ml Vial) 100 mcg 1X ONCE 06/30/21 04:30 06/30/21 04:31 DC Fomepizole 1 gm/ Sodium Chloride 101 ml @ 202 mls/hr Q12HR 06/30/21 22:00 07/02/21 09:30 DC 07/02/21 09:34 202 MLS/HR Fomepizole 1.5 gm/ Sodium Chloride 101.5 ml @ 203 mls/hr 1X ONCE 06/30/21 10:00 06/30/21 10:29 DC 06/30/21 09:44 203 MLS/HR Glycerin/ Hypromellose/ Polyethylene (Artificial Tears) 1 drop PRN Q15MIN PRN 07/01/21 07:15 07/03/21 12:10 DC 07/01/21 08:44 1 DROP Heparin Sodium (Porcine) (Heparin Sodium) 5,000 unit Q8HRS 07/01/21 14:00 07/07/21 06:10 5,000 UNIT Meropenem 500 mg/ Sodium Chloride 50 ml @ 100 mls/hr Q6HRS 07/04/21 12:00 07/07/21 06:16 100 MLS/HR Ondansetron HCl (Zofran) 4 mg PRN Q4HRS PRN 07/01/21 07:15 07/06/21 17:35 4 MG Pantoprazole Sodium (PROTONIX VIAL for IV PUSH) 40 mg DAILYAC 07/01/21 07:30 07/06/21 10:01 DC 07/06/21 05:48 40 MG Pantoprazole Sodium (Protonix) 40 mg DAILYAC 07/07/21 07:30 Potassium Bicarbonate (Potassium Effervescent Tablet) 40 meq 1X ONCE 07/03/21 08:30 07/03/21 08:31 DC 07/03/21 09:13 40 MEQ Potassium Chloride/Water 100 ml @ 100 mls/hr Q1H 07/05/21 10:00 07/05/21 11:59 DC 07/05/21 11:00 100 MLS/HR Propofol 100 ml @ 3.135 mls/ hr CONT PRN 06/30/21 04:30 07/03/21 12:10 DC 07/03/21 06:42 28.215 MLS/HR Propofol (Diprivan) 200 mg 1X ONCE 06/30/21 04:30 06/30/21 04:31 DC Rocuronium [place] (Zemuron) 50 mg STK-MED ONCE 06/30/21 04:30 06/30/21 08:42 DC Sodium Bicarbonate 50 meq/Dextrose 1,050 ml @ 125 mls/hr Q8H24M 07/01/21 08:00 07/02/21 08:30 DC 07/02/21 00:35 125 MLS/HR Sodium Bicarbonate (Sodium Bicarb Adult 8.4% Syr) 50 meq 1X ONCE 06/30/21 09:45 06/30/21 09:46 DC 06/30/21 09:44 50 MEQ Sodium Chloride 1,000 ml @ 75 mls/hr [id number] 07/02/21 09:15 07/04/21 14:34 DC 07/04/21 00:58 75 MLS/HR Throat Lozenges (Cepacol Sore Throat Lozenge) 1 monet PRN Q2HRS PRN 07/06/21 23:30 07/06/21 23:36 1 MONET Tramadol HCl (Ultram) 50 mg PRN Q6HRS PRN 07/05/21 21:15 07/07/21 06:16 50 MG Results All relevant outside records, renal labs, imaging studies, telemetry/EKG's were reviewed. Justicifation of Admission Dx: Justifications for Admission: Justification of Admission Dx: Yes JM GOODMAN MD July 07, 2021 09:05
--- NOTE | 2021-07-07 10:28 | PDOC ---
PULMONARY PROGRESS NOTES DATE: 07/07/21 TIME: 10:28 Subjective Patient extubated 07/03/2021. No new complaints Vitals Vital Signs Date Time Temp Pulse Resp B/P (MAP) Pulse Ox O2 Delivery O2 Flow Rate FiO2 07/07/21 07:00 98.6 100 18 120/77 (91) 96 Room Air 98.6 07/07/21 06:46 2.0 ROS: No Nausea, No Chest Pain, No Abdominal Pain, No Increase Cough General: Alert, No acute distress Lungs: Clear Cardiovascular: S1 Abdomen: Soft Extremities: No Edema Skin: Warm Labs Laboratory Tests Test 07/06/21 06:30 Sodium Level 141 mmol/L (136-145) Potassium Level 3.1 mmol/L (3.5-5.1) Chloride Level 102 mmol/L (98-107) Carbon Dioxide Level 30 mmol/L (21-32) Anion Gap 9 (6-14) Blood Urea Nitrogen 19 mg/dL (8-26) Creatinine 1.2 mg/dL (0.7-1.3) Estimated GFR (Cockcroft-Gault) 66.4 Glucose Level 76 mg/dL (70-99) Calcium Level 8.9 mg/dL (8.5-10.1) Comments Chest x-ray reviewed 07-05-21. No focal infiltrate. Impression . 1. Acute respiratory failure secondary to acetaminophen overdose. He was also positive for meth. S/p extubation 07/03/2021. 2. Acute toxic encephalopathy. Resolved. 3. Metabolic acidosis related to acetaminophen overdose and ATN. Improved. 4. Abnormal liver function test. 5. Acute kidney injury. 6. Lactic acidosis. 7. No significant coagulopathy. 9. COVID-negative and influenza negative. Patient has been adequately vaccinated for COVID. 10 fever 11. UTI E. coli Plan . Updated 07/07 Continue antibiotics per ID Respiratory status compensated Possible transfer back to once on oral antibiotics, will defer to ID DANII BUCHANAN MD July 07, 2021 10:28
[2021-07-07 11:00] VITALS: BP 119/74
[2021-07-07] MEDS: guaiFENesin DM 600/30MG 1 TAB TAB.ER.12H PO SCH ×2 (12:24→21:37)
--- NOTE | 2021-07-07 13:18 | PDOC ---
[employer] PROGRESS NOTE Date of Service DOS: DATE: 07/07/21 TIME: 13:17 Chief Complaint Chief Complaint Fevers: On IV antibiotics but continues to have fevers. Initial blood cultures negative. ID consulted continue IV antibiotics. Acute encephalopathy - metabolic, likely due to medication overdose, possibly also with amphetamine toxicity. Resolving Acetaminophen overdose -unclear if intentional or not. Status post NAC and fom epizole Chronic osteoarthritis pain -if acetaminophen negative and ibuprofen are given to the future would recommend to dose pill packs daily. Seizures - [facility], resolved Respiratory failure -extubated 07/03/2021. TRISTIN - no renal dysfunction, likely vasomotor nephropathy. Will obtain non- contrast abdominal imaging to r/o obstructive uropathy vs medical renal disease Lactic acidosis - likely related to acetaminophen OD, will trend Amphetamine positive - unclear if intoxicated Borderline personality disorder -not on meds Hyperglycemia - A1c 5.5, no DM history hyponatremia - possibly hypervolemic FEN - NPO PPX - heparin FULL CODE Dispo - ICU cc time 33 min History of Present Illness History of Present Illness Mr Alarcon is a 40yo male w/ PMHx chronic osteoarthritis pain, seizure, borderline personality disorder who is an inmate brought from [facility] for unresponsiveness and concern for overdose. History obtained from ED paperwork and from [place] [employer] off icers. He was found on morning wellness check this morning prior to 0400 laying in a pile of vomit with suspicion patient had taken #420 of 325 mg of acetaminophen. He has been incarcerated since 2005 per corrections officers. Labs at 0449 NA 142, K3 point delayed, BUN 14 CR 1.5, anion gap 22, glucose 243, lactic acid 5.3, calcium 7.6, bilirubin 0.3, AST 23, ALT 45, alkaline phosp hatase 52, albumin 3.4, acetaminophen level 383.8, salicylates 1.2, urine drug screen positive for amphetamines, urinalysis bland with glucosuria and ketonuria. Patient was notably somnolent, drooling with brown emesis, confused in ED, barley answering to his name, and was assessed as not protecting his airway ED physician elected to intubate patient. Chest radiograph with ET tube near ayanna gastric tube overlying gastric bubble below the diaphragm. No other abnormalities on CXR on my interpretation. Initial ABG 7.245/38.9/136.4 Repeat ABG 7.221/31.5/161 on AC mode 40 breaths/min per tidal volume 450 PEEP of 5 FiO2 40% 07/01: Seen on vent AC mode PEEP 5 FiO2 40%, ABG pH 7.29 this morning. Creatinine climbing to 3.5, urine output 5.7 L last 24 hours. ALT 85 now, INR 1.5. Acetaminophen level 50. CBC pending, CT abdomen/pelvis ordered. started on free water. 07/02: On vent AC mode PEEP 5 FiO2 40% with O2 saturations 90%. Creatinine still not improving. INR 1.4. Repeat morning labs pending acetaminophen level was 6.6 admit overnight planned continue Mucomyst until level is 0. Abdominal ultrasound with no renal disease or obstruction noted but diffuse hepatic steatosis noted. 07/03: WBC down to 15 NA 129, K3.2, CR improved to 1.8 albumin 2.8, INR 1.1, acetaminophen level was 0 as of 12:30 PM on 07/02/2021. Still seen on ventilator AC mode 40% FiO2 PEEP of 5 saturations 91%. Off Mucomyst. Discussed plan to extubate potentially today we will attempt vent wean. 07/04: Extubated on 07/03/2021 without event. Febrile up to 103 F overnight. Having some chills. Seen bedside in ICU with 2 corrections officers present. Creatinine to 1.5. Given his recent ibuprofen and acetaminophen overdose his only option for fever has been aspirin we will continue to do this as needed. Awaiting bedside swallow evaluation he is noted he is very hungry. 07/05 Evaluated examined at bedside. Still febrile overnight. Cultures repeated today. Continue IV antibiotics per infectious disease team. Reporting some headache CT scan ordered. Otherwise continuing current. Discussed with bedside RN. 5/3 Patient evaluated examined at bedside. No further fevers. Continue current antibiotics. Consult and recommendations reviewed. Urine returned positive for E. coli today. Continue current antibiotics. May be discharged before the weekend. Discussed with bedside RN. 5/4 Evaluated examined at bedside. Still afebrile. Continue current antibiotics. If able to switch to oral antibiotic at any point he can likely discharge back to pen[facility]. Otherwise continued current. Agreeable to plan. Vitals/I&O Vitals/I&O: Vital Signs Date Time Temp Pulse Resp B/P (MAP) Pulse Ox O2 Delivery O2 Flow Rate FiO2 07/07/21 12:24 96 Room Air 2.0 07/07/21 11:00 98.9 100 18 119/74 (89) 98.9 I & O 07/06/21 07/06/21 07/07/21 15:00 23:00 07:00 Intake Total 50 ml Balance 50 ml Physical Exam Physical Exam: GENERAL: Alert, awake male, in no acute distress, on room air. HEENT: Normocephalic, atraumatic. Anicteric. No thrush. Oral mucosa moist. NECK: Supple. LUNGS: Clear bilaterally. No wheezing. HEART: S1, S2. No gallops or murmurs. ABDOMEN: Soft, nontender, nondistended, no rebound or guarding. EXTREMITIES: No edema, no cyanosis. DERMATOLOGIC: Warm, dry, no generalized rash. NEUROLOGIC: Alert, oriented x 3, grossly nonfocal. PSYCHIATRIC: Calm and cooperative. General: Alert, Oriented X3, Cooperative, mild distress Heart: Regular rate, Normal S1, Normal S2 Lungs: Clear Abdomen: Normal bowel sounds, Soft, No tenderness, No hepatosplenomegaly, No masses Extremities: No clubbing, No cyanosis, No edema, Normal pulses, No tenderness/swelling Skin: No rashes, No breakdown, No significant lesion Assessment and Plan Assessmemt and Plan Problems Medical Problems: (1) Acetaminophen overdose Status: Acute Comment Review of Relevant I have reviewed the following items cherelle (where applicable) has been applied. Medications: Current Medications Medications (Trade) Dose Ordered Sig/Danielito Route PRN Reason Start Time Stop Time Status Last Admin Dose Admin Pantoprazole Sodium (Protonix) 40 mg DAILYAC PO 07/07/21 07:30 07/07/21 09:04 Throat Lozenges (Cepacol Sore Throat Lozenge) 1 pau PRN Q2HRS PRN PO SORE THROAT 07/06/21 23:30 07/06/21 23:36 Guaifenesin (MUCINEX ER with DM) 1 tab BID PO 07/07/21 12:00 07/07/21 12:24 Justifications for Admission Other Justification PILAR PAREKH MD July 07, 2021 13:18
--- NOTE | 2021-07-07 14:46 | PDOC ---
Infectious Disease Note Subjective: Subjective Pt feels better fever improved Vital Signs: Vital Signs Vital Signs Date Time Temp Pulse Resp B/P (MAP) Pulse Ox O2 Delivery O2 Flow Rate FiO2 07/07/21 12:24 96 Room Air 2.0 07/07/21 11:00 98.9 100 18 119/74 (89) 98.9 Physical Exam: PHYSICAL EXAM GENERAL: Alert, awake male, in no acute distress, on room air. HEENT: Normocephalic, atraumatic. Anicteric. No thrush. Oral mucosa moist. NECK: Supple. LUNGS: Clear bilaterally. No wheezing. HEART: S1, S2. No gallops or murmurs. ABDOMEN: Soft, nontender, nondistended, no rebound or guarding. EXTREMITIES: No edema, no cyanosis. DERMATOLOGIC: Warm, dry, no generalized rash. NEUROLOGIC: Alert, oriented x 3, grossly nonfocal. PSYCHIATRIC: Calm and cooperative. Medications: Inpatient Meds: Medications reviewed. Objective: Assessment: 1. Fever,UTI, 2. Acute hypoxic respiratory failure secondary to acetaminophen overdose also was positive for meth, status post extubation 07/03/2021. 3. Tylenol overdose. 4. Acute toxic encephalopathy, resolved. 5. UTI. E coli 6. Lactic acidosis with metabolic acidosis present on admission. 7. Abnormal liver function tests, improved. 8. Acute kidney injury with metabolic acidosis, improving. Plan: Plan of Care Change merrem to rocephin CT head sphenoid sinusitis Groin line removed Buchanan has been removed Monitor cultures and labs Continue supportive care Continue aspiration precautions DILCIA MCKENZIE MD July 07, 2021 14:46
[2021-07-07 15:00] VITALS: BP 18/80
[2021-07-07] MEDS: cefTRIAXone IV Push 2 GM VIAL. IVP SCH (15:20)
--- NOTE | 2021-07-07 16:20 | PDOC ---
[facility] PROGRESS NOTE Reason for Follow-up Acetaminophen overdose Objective Tolerating PO Physical Exam Lungs clear CV S1 S2 ABD +BS, soft, nontender Review of Relevant I have reviewed the following items cherelle (where applicable) has been applied. Labs Laboratory Tests Test 07/06/21 06:30 Sodium Level 141 mmol/L (136-145) Potassium Level 3.1 mmol/L (3.5-5.1) Chloride Level 102 mmol/L (98-107) Carbon Dioxide Level 30 mmol/L (21-32) Anion Gap 9 (6-14) Blood Urea Nitrogen 19 mg/dL (8-26) Creatinine 1.2 mg/dL (0.7-1.3) Estimated GFR (Cockcroft-Gault) 66.4 Glucose Level 76 mg/dL (70-99) Calcium Level 8.9 mg/dL (8.5-10.1) Microbiology 07/04/21 Urine Culture - Final, Complete Escherichia Coli 07/04/21 Blood Culture - Preliminary, Resulted NO GROWTH AFTER 3 DAYS Medications Current Medications Acetylcysteine 15 gm/Dextrose 275 ml @ 200 mls/hr 1X ONCE IV Last administered on 06/30/21at 03:52; Start 06/30/21 at 04:00; Stop 06/30/21 at 05:22; Status DC Sodium Chloride 1,000 ml @ 1,000 mls/hr Q1H IV ; Start 06/30/21 at 04:00; Stop 06/30/21 at 04:59; Status DC Rocuronium [place] (Zemuron) 100 mg 1X ONCE IV Last administered on 06/30/21at 04:30; Start 06/30/21 at 04:30; Stop 06/30/21 at 04:31; Status DC Etomidate (Amidate) 30 mg 1X ONCE IV Last administered on 06/30/21at 04:30; Start 06/30/21 at 04:30; Stop 06/30/21 at 04:31; Status DC Propofol (Diprivan) 200 mg 1X ONCE IV ; Start 06/30/21 at 04:30; Stop 06/30/21 at 04:31; Status DC Fentanyl Citrate (Fentanyl 2ml Vial) 100 mcg 1X ONCE IVP ; Start 06/30/21 at 04:30; Stop 06/30/21 at 04:31; Status DC Propofol 100 ml @ 3.135 mls/ hr CONT PRN IV PER PROTOCOL Last administered on 07/03/21at 06:42; Start 06/30/21 at 04:30; Stop 07/03/21 at 12:10; Status DC Acetylcysteine 10 gm/Dextrose 1,050 ml @ 65.625 mls/ hr 1X ONCE IV Last administered on 06/30/21at 05:22; Start 06/30/21 at 05:30; Stop 06/30/21 at 21:29; Status DC Sodium Bicarbonate (Sodium Bicarb Adult 8.4% Syr) 50 meq 1X ONCE IV Last administered on 06/30/21at 09:43; Start 06/30/21 at 06:00; Stop 06/30/21 at 06:01; Status DC Etomidate (Amidate) 20 mg STK-MED ONCE IV ; Start 06/30/21 at 04:30; Stop 06/30/21 at 08:42; Status DC Rocuronium [place] (Zemuron) 50 mg STK-MED ONCE .ROUTE ; Start 06/30/21 at 04:30; Stop 06/30/21 at 08:42; Status DC Fomepizole 1.5 gm/ Sodium Chloride 101.5 ml @ 203 mls/hr 1X ONCE IV Last administered on 06/30/21at 09:44; Start 06/30/21 at 10:00; Stop 06/30/21 at 10:29; Status DC Sodium Bicarbonate (Sodium Bicarb Adult 8.4% Syr) 100 meq 1X ONCE IV ; Start 06/30/21 at 09:30; Stop 06/30/21 at 09:31; Status UNV Sodium Bicarbonate (Sodium Bicarb Adult 8.4% Syr) 50 meq 1X ONCE IV Last administered on 06/30/21at 09:44; Start 06/30/21 at 09:45; Stop 06/30/21 at 09:46; Status DC Acetylcysteine 12 gm/Dextrose 1,060 ml @ 110 mls/hr Q10H IV Last administered on 07/02/21at 00:35; Start 06/30/21 at 16:00; Stop 07/02/21 at 12:00; Status DC Fomepizole 1 gm/ Sodium Chloride 101 ml @ 202 mls/hr Q12HR IV Last administe red on 07/02/21at 09:34; Start 06/30/21 at 22:00; Stop 07/02/21 at 09:30; Status DC Ondansetron HCl (Zofran) 4 mg PRN Q4HRS PRN IVP NAUSEA/VOMITING Last administered on 07/06/21at 17:35; Start 07/01/21 at 07:15 Glycerin/ Hypromellose/ Polyethylene (Artificial Tears) 1 drop PRN Q15MIN PRN OU DRY EYE Last administered on 07/01/21at 08:44; Start 07/01/21 at 07:15; Stop 07/03/21 at 12:10; Status DC Pantoprazole Sodium (PROTONIX VIAL for IV PUSH) 40 mg DAILYAC IVP Last administered on 07/06/21at 05:48; Start 07/01/21 at 07:30; Stop 07/06/21 at 10:01; Status DC Heparin Sodium (Porcine) (Heparin Sodium) 5,000 unit Q8HRS SQ Last administered on 07/07/21at 15:19; Start 07/01/21 at 14:00 Sodium Bicarbonate 50 meq/Dextrose 1,050 ml @ 125 mls/hr Q8H24M IV Last administered on 07/02/21at 00:35; Start 07/01/21 at 08:00; Stop 07/02/21 at 08:30; Status DC Dextrose/Sodium Chloride 1,000 ml @ 75 mls/hr [id number] IV ; Start 07/02/21 at 08:30; Stop 07/03/21 at 12:05; Status DC Sodium Chloride 1,000 ml @ 75 mls/hr [id number] IV Last administered on 07/04/21at 00:58; Start 07/02/21 at 09:15; Stop 07/04/21 at 14:34; Status DC Potassium Bicarbonate (Potassium Effervescent Tablet) 40 meq 1X ONCE PEG Last administered on 07/03/21at 09:13; Start 07/03/21 at 08:30; Stop 07/03/21 at 08:31; Status DC Albuterol/ Ipratropium (Duoneb) 3 ml Q4HRS W/A NEB Last administered on 07/03/21at 21:30; Start 07/03/21 at 22:00; Stop 07/03/21 at 21:53; Status DC Albuterol Sulfate (Ventolin Neb Soln) 2.5 mg PRN Q4HRS PRN NEB SHORTNESS OF BREATH; Start 07/03/21 at 22:00 Aspirin (Aspirin Chewable) 81 mg 1X ONCE PO Last administered on 07/04/21at 05:42; Start 07/04/21 at 04:45; Stop 07/04/21 at 04:46; Status DC Aspirin (Melia Aspirin) 325 mg PRN BID PRN PO MILD PAIN / TEMP > 100.3'F Last administered on 07/05/21at 16:11; Start 07/04/21 at 09:00 Meropenem 500 mg/ Sodium Chloride 50 ml @ 100 mls/hr Q6HRS IV Last administered on 07/07/21at 12:23; Start 07/04/21 at 12:00; Stop 07/07/21 at 14:47; Status DC Daptomycin 500 mg/ Sodium Chloride 50 ml @ 100 mls/hr Q24H IV Last administered on 07/05/21at 16:06; Start 07/04/21 at 16:00; Stop 07/06/21 at 14:30; Status DC Potassium Chloride/Water 100 ml @ 100 mls/hr 1X ONCE IV ; Start 07/05/21 at 09:30; Stop 07/05/21 at 09:32; Status DC Potassium Chloride/Water 100 ml @ 100 mls/hr Q1H IV Last administered on 07/05/21at 11:00; Start 07/05/21 at 10:00; Stop 07/05/21 at 11:59; Status DC Tramadol HCl (Ultram) 50 mg PRN Q6HRS PRN PO MODERATE PAIN, SEVERE PAIN Last administered on 07/07/21at 12:24; Start 07/05/21 at 21:15 Pantoprazole Sodium (Protonix) 40 mg DAILYAC PO Last administered on 07/07/21at 09:04; Start 07/07/21 at 07:30 Throat Lozenges (Cepacol Sore Throat Lozenge) 1 pau PRN Q2HRS PRN PO SORE THROAT Last administered on 07/06/21at 23:36; Start 07/06/21 at 23:30 Guaifenesin (MUCINEX ER with DM) 1 tab BID PO Last administered on 07/07/21at 12:24; Start 07/07/21 at 12:00 Ceftriaxone Sodium (Rocephin) 2 gm Q24H IVP Last administered on 07/07/21at 15:20; Start 07/07/21 at 15:00 Lactobacillus Rhamnosus (Culturelle) 1 cap BID PO ; Start 07/07/21 at 21:00 Vitals/I & O Vital Sign - Last 24 Hours 07/06/21 07/06/21 07/06/21 07/07/21 19:00 20:15 23:00 03:00 Temp 98.7 98.8 99.3 98.7 98.8 99.3 Pulse 105 104 102 Resp 20 20 20 B/P (MAP) 124/78 (93) 120/77 (91) 109/79 (89) Pulse Ox 100 98 95 O2 Delivery Room Air Room Air Room Air Room Air O2 Flow Rate 2.0 07/07/21 07/07/21 07/07/21 07/07/21 06:16 06:46 07:00 08:14 Temp 98.6 98.6 Pulse 100 Resp 18 B/P (MAP) 120/77 (91) Pulse Ox 95 95 96 O2 Delivery Room Air Room Air Room Air Room Air O2 Flow Rate 2.0 2.0 2.0 07/07/21 07/07/21 11:00 12:24 Temp 98.9 98.9 Pulse 100 Resp 18 B/P (MAP) 119/74 (89) Pulse Ox 95 96 O2 Delivery Room Air Room Air O2 Flow Rate 2.0 Intake and Output 07/06/21 07/06/21 07/07/21 15:00 23:00 07:00 Intake Total 50 ml Balance 50 ml Problem List Problems Medical Problems: (1) Acetaminophen overdose Status: Acute Assessment Transaminitis- with tylenol overdose, resolved, await transfer back to facility Justicifation of Admission Dx: Justifications for Admission: Justification of Admission Dx: Yes KATIE SMALL MD July 07, 2021 16:20
[2021-07-07 19:00] VITALS: BP 115/85
[2021-07-07] MEDS: LACTOBACILLUS RHAMNOSUS GG 1 CAPSULE. PO SCH (21:37)
[2021-07-07] MEDS: BENZOCAINE/MENTHOL LOZENGE. PO PRN (22:52)
[2021-07-07 23:09] VITALS: BP 139/87
[2021-07-08 03:43] VITALS: BP 147/82
[2021-07-08 05:49] LABS: CALCIUM 8.6 mg/dL (8.5-10.1); GFR 81.9; POTASSIUM 3.2 mmol/L (3.5-5.1)
[2021-07-08] MEDS: HEPARIN for SUB-Q USE 5,000 UNIT/ML VIAL. SQ SCH ×2 (05:58→14:13)
[2021-07-08 07:00] VITALS: BP 132/85
[2021-07-08] MEDS: PANTOPRAZOLE 40 MG TABLET.DR. PO SCH (07:33)
[2021-07-08] MEDS: traMADol 50 MG TABLET PO PRN (07:33)
[2021-07-08] MEDS: guaiFENesin DM 600/30MG 1 TAB TAB.ER.12H PO SCH (08:50)
[2021-07-08] MEDS: LACTOBACILLUS RHAMNOSUS GG 1 CAPSULE. PO SCH (08:50)
--- NOTE | 2021-07-08 09:30 | PDOC ---
DATE OF SERVICE DATE: 07/08/21 TIME: 09:29 SUBJECTIVE ROS Denies any N/V or SOB. Denies any urinary complaints OBJECTIVE Vital Signs Vital Signs Date Time Temp Pulse Resp B/P (MAP) Pulse Ox O2 Delivery O2 Flow Rate FiO2 07/08/21 08:00 Room Air 2.0 07/08/21 07:00 98.5 98 20 132/85 (101) 98 98.5 PHYSICAL EXAM Physical Exam GEGeneral: NAD, HEENT: Atraumatic, EOMI, Mucous membr. moist/pink, On RA Lungs: CTA, Non labored Heart: S1S2, RRR, Abdomen: Normal bowel sounds, Soft, No tenderness, No hepatosplenomegaly, No masses Extremities: No clubbing, No cyanosis, No edema, Skin: No rashes, Neuro: Grossly normal Psych/Mental Status: Cooperative Buchanan dced DIAGNOSIS/ASSESSMENT Assessment & Plan TRISTIN suspect ATN vs AIN , Non Oliguric ,Resolved UOP not recorded . UA unremarkable Renal US- unremarkable . Supportive care, Maintain fluid balance HypoNatremia - Resolved HypoKalemia- Replace Acidosis- Resolved Acetaminophen overdose Resolved N-acetylcysteine and fomepizole . Patient reports he took large amounts of both Acetaminophen and Ibuprofen Acute encephalopathy - metabolic with amphetamine toxicity Seizures - per [facility], resolved Lactic acidosis -resolved likely related to acetaminophen OD, Amphetamine positive Borderline personality disorder -not on meds DC per primary/ID COMMENT/RELEVANT DATA Meds Current Medications Medications (Trade) Dose Ordered Sig/Danielito Start Time Stop Time Status Last Admin Dose Admin Acetylcysteine 10 gm/Dextrose 1,050 ml @ 65.625 mls/ hr 1X ONCE 06/30/21 05:30 06/30/21 21:29 DC 06/30/21 05:22 65.625 MLS/HR Acetylcysteine 12 gm/Dextrose 1,060 ml @ 110 mls/hr Q10H 06/30/21 16:00 07/02/21 12:00 DC 07/02/21 00:35 110 MLS/HR Acetylcysteine 15 gm/Dextrose 275 ml @ 200 mls/hr 1X ONCE 06/30/21 04:00 06/30/21 05:22 DC 06/30/21 03:52 200 MLS/HR Albuterol Sulfate (Ventolin Neb Soln) 2.5 mg PRN Q4HRS PRN 07/03/21 22:00 Albuterol/ Ipratropium (Duoneb) 3 ml Q4HRS W/A 07/03/21 22:00 07/03/21 21:53 DC 07/03/21 21:30 3 ML Aspirin (Aspirin Chewable) 81 mg 1X ONCE 07/04/21 04:45 07/04/21 04:46 DC 07/04/21 05:42 81 MG Aspirin (Melia Aspirin) 325 mg PRN BID PRN 07/04/21 09:00 07/05/21 16:11 325 MG Ceftriaxone Sodium (Rocephin) 2 gm Q24H 07/07/21 15:00 07/07/21 15:20 2 GM Daptomycin 500 mg/ Sodium Chloride 50 ml @ 100 mls/hr Q24H 07/04/21 16:00 07/06/21 14:30 DC 07/05/21 16:06 100 MLS/HR Dextrose/Sodium Chloride 1,000 ml @ 75 mls/hr [id number] 07/02/21 08:30 07/03/21 12:05 DC Etomidate (Amidate) 20 mg STK-MED ONCE 06/30/21 04:30 06/30/21 08:42 DC Fentanyl Citrate (Fentanyl 2ml Vial) 100 mcg 1X ONCE 06/30/21 04:30 06/30/21 04:31 DC Fomepizole 1 gm/ Sodium Chloride 101 ml @ 202 mls/hr Q12HR 06/30/21 22:00 07/02/21 09:30 DC 07/02/21 09:34 202 MLS/HR Fomepizole 1.5 gm/ Sodium Chloride 101.5 ml @ 203 mls/hr 1X ONCE 06/30/21 10:00 06/30/21 10:29 DC 06/30/21 09:44 203 MLS/HR Glycerin/ Hypromellose/ Polyethylene (Artificial Tears) 1 drop PRN Q15MIN PRN 07/01/21 07:15 07/03/21 12:10 DC 07/01/21 08:44 1 DROP Guaifenesin (MUCINEX ER with DM) 1 tab BID 07/07/21 12:00 07/08/21 08:50 1 TAB Heparin Sodium (Porcine) (Heparin Sodium) 5,000 unit Q8HRS 07/01/21 14:00 07/08/21 05:58 5,000 UNIT Lactobacillus Rhamnosus (Culturelle) 1 cap BID 07/07/21 21:00 07/08/21 08:50 1 CAP Meropenem 500 mg/ Sodium Chloride 50 ml @ 100 mls/hr Q6HRS 07/04/21 12:00 07/07/21 14:47 DC 07/07/21 12:23 100 MLS/HR Ondansetron HCl (Zofran) 4 mg PRN Q4HRS PRN 07/01/21 07:15 07/06/21 17:35 4 MG Pantoprazole Sodium (PROTONIX VIAL for IV PUSH) 40 mg DAILYAC 07/01/21 07:30 07/06/21 10:01 DC 07/06/21 05:48 40 MG Pantoprazole Sodium (Protonix) 40 mg DAILYAC 07/07/21 07:30 07/08/21 07:33 40 MG Potassium Bicarbonate (Potassium Effervescent Tablet) 40 meq 1X ONCE 07/03/21 08:30 07/03/21 08:31 DC 07/03/21 09:13 40 MEQ Potassium Chloride/Water 100 ml @ 100 mls/hr Q1H 07/05/21 10:00 07/05/21 11:59 DC 07/05/21 11:00 100 MLS/HR Propofol 100 ml @ 3.135 mls/ hr CONT PRN 06/30/21 04:30 07/03/21 12:10 DC 07/03/21 06:42 28.215 MLS/HR Propofol (Diprivan) 200 mg 1X ONCE 06/30/21 04:30 06/30/21 04:31 DC Rocuronium [place] (Zemuron) 50 mg STK-MED ONCE 06/30/21 04:30 06/30/21 08:42 DC Sodium Bicarbonate 50 meq/Dextrose 1,050 ml @ 125 mls/hr Q8H24M 07/01/21 08:00 07/02/21 08:30 DC 07/02/21 00:35 125 MLS/HR Sodium Bicarbonate (Sodium Bicarb Adult 8.4% Syr) 50 meq 1X ONCE 06/30/21 09:45 06/30/21 09:46 DC 06/30/21 09:44 50 MEQ Sodium Chloride 1,000 ml @ 75 mls/hr [id number] 07/02/21 09:15 07/04/21 14:34 DC 07/04/21 00:58 75 MLS/HR Throat Lozenges (Cepacol Sore Throat Lozenge) 1 monet PRN Q2HRS PRN 07/06/21 23:30 07/07/21 22:52 1 MONET Tramadol HCl (Ultram) 50 mg PRN Q6HRS PRN 07/05/21 21:15 07/08/21 07:33 50 MG Lab Laboratory Tests Test 07/08/21 04:40 Sodium Level 139 mmol/L (136-145) Potassium Level 3.2 mmol/L (3.5-5.1) Chloride Level 103 mmol/L (98-107) Carbon Dioxide Level 30 mmol/L (21-32) Anion Gap 6 (6-14) Blood Urea Nitrogen 17 mg/dL (8-26) Creatinine 1.0 mg/dL (0.7-1.3) Estimated GFR (Cockcroft-Gault) 81.9 Glucose Level 84 mg/dL (70-99) Calcium Level 8.6 mg/dL (8.5-10.1) Results All relevant outside records, renal labs, imaging studies, telemetry/EKG's were reviewed. Justicifation of Admission Dx: Justifications for Admission: Justification of Admission Dx: Yes JM GOODMAN MD July 08, 2021 09:30
--- NOTE | 2021-07-08 10:17 | PDOC ---
PULMONARY PROGRESS NOTES DATE: 07/08/21 TIME: 10:16 Subjective Patient extubated 07/03/2021. No new complaints Vitals Vital Signs Date Time Temp Pulse Resp B/P (MAP) Pulse Ox O2 Delivery O2 Flow Rate FiO2 07/08/21 08:00 Room Air 2.0 07/08/21 07:00 98.5 98 20 132/85 (101) 98 98.5 ROS: No Nausea, No Chest Pain, No Abdominal Pain, No Increase Cough General: Alert, No acute distress Lungs: Clear Cardiovascular: S1 Abdomen: Soft Extremities: No Edema Skin: Warm Labs Laboratory Tests Test 07/08/21 04:40 Sodium Level 139 mmol/L (136-145) Potassium Level 3.2 mmol/L (3.5-5.1) Chloride Level 103 mmol/L (98-107) Carbon Dioxide Level 30 mmol/L (21-32) Anion Gap 6 (6-14) Blood Urea Nitrogen 17 mg/dL (8-26) Creatinine 1.0 mg/dL (0.7-1.3) Estimated GFR (Cockcroft-Gault) 81.9 Glucose Level 84 mg/dL (70-99) Calcium Level 8.6 mg/dL (8.5-10.1) Laboratory Tests Test 07/08/21 04:40 Sodium Level 139 mmol/L (136-145) Potassium Level 3.2 mmol/L (3.5-5.1) Chloride Level 103 mmol/L (98-107) Carbon Dioxide Level 30 mmol/L (21-32) Anion Gap 6 (6-14) Blood Urea Nitrogen 17 mg/dL (8-26) Creatinine 1.0 mg/dL (0.7-1.3) Estimated GFR (Cockcroft-Gault) 81.9 Glucose Level 84 mg/dL (70-99) Calcium Level 8.6 mg/dL (8.5-10.1) Comments Chest x-ray reviewed 07-05-21. No focal infiltrate. Impression . 1. Acute respiratory failure secondary to acetaminophen overdose. He was also positive for meth. S/p extubation 07/03/2021. 2. Acute toxic encephalopathy. Resolved. 3. Metabolic acidosis related to acetaminophen overdose and ATN. Improved. 4. Abnormal liver function test. 5. Acute kidney injury. 6. Lactic acidosis. 7. No significant coagulopathy. 9. COVID-negative and influenza negative. Patient has been adequately vaccinated for COVID. 10 fever 11. UTI E. coli Plan . Doing well from a pulmonary standpoint. Continue antibiotics per ID Respiratory status compensated Possible transfer back to once on oral antibiotics, will defer to ID HARLEY MOFFETT MD July 08, 2021 10:17
[2021-07-08 11:00] VITALS: BP 121/73
--- NOTE | 2021-07-08 12:51 | PDOC ---
Infectious Disease Note Subjective: Subjective Pt feels better fever improved Vital Signs: Vital Signs Vital Signs Date Time Temp Pulse Resp B/P (MAP) Pulse Ox O2 Delivery O2 Flow Rate FiO2 07/08/21 11:00 98.4 89 20 121/73 (89) 95 Room Air 98.4 07/08/21 08:00 2.0 Physical Exam: PHYSICAL EXAM GENERAL: Alert, awake male, in no acute distress, on room air. HEENT: Normocephalic, atraumatic. Anicteric. No thrush. Oral mucosa moist. NECK: Supple. LUNGS: Clear bilaterally. No wheezing. HEART: S1, S2. No gallops or murmurs. ABDOMEN: Soft, nontender, nondistended, no rebound or guarding. EXTREMITIES: No edema, no cyanosis. DERMATOLOGIC: Warm, dry, no generalized rash. NEUROLOGIC: Alert, oriented x 3, grossly nonfocal. PSYCHIATRIC: Calm and cooperative. Medications: Inpatient Meds: Medications reviewed. Labs: Lab Laboratory Tests Test 07/08/21 04:40 Sodium Level 139 mmol/L (136-145) Potassium Level 3.2 mmol/L (3.5-5.1) Chloride Level 103 mmol/L (98-107) Carbon Dioxide Level 30 mmol/L (21-32) Anion Gap 6 (6-14) Blood Urea Nitrogen 17 mg/dL (8-26) Creatinine 1.0 mg/dL (0.7-1.3) Estimated GFR (Cockcroft-Gault) 81.9 Glucose Level 84 mg/dL (70-99) Calcium Level 8.6 mg/dL (8.5-10.1) Objective: Assessment: 1. Fever,UTI, 2. Acute hypoxic respiratory failure secondary to acetaminophen overdose also was positive for meth, status post extubation 07/03/2021. 3. Tylenol overdose. 4. Acute toxic encephalopathy, resolved. 5. UTI. E coli 6. Lactic acidosis with metabolic acidosis present on admission. 7. Abnormal liver function tests, improved. 8. Acute kidney injury with metabolic acidosis, improving. Plan: Plan of Care ceftriaxone today dc on po cefdinir for 7 days Discussed with DILCIA CLAUDIO MD July 08, 2021 12:51
--- NOTE | 2021-07-08 13:07 | PDOC ---
G I PROGRESS NOTE Reason for Follow-up Tylenol overdose Subjective Headaches persist/appetite good Physical Exam Lungs clear CV S1 S2 ABD +BS, soft, nontender Review of Relevant I have reviewed the following items cherelle (where applicable) has been applied. Labs Laboratory Tests Test 07/08/21 04:40 Sodium Level 139 mmol/L (136-145) Potassium Level 3.2 mmol/L (3.5-5.1) Chloride Level 103 mmol/L (98-107) Carbon Dioxide Level 30 mmol/L (21-32) Anion Gap 6 (6-14) Blood Urea Nitrogen 17 mg/dL (8-26) Creatinine 1.0 mg/dL (0.7-1.3) Estimated GFR (Cockcroft-Gault) 81.9 Glucose Level 84 mg/dL (70-99) Calcium Level 8.6 mg/dL (8.5-10.1) Laboratory Tests Test 07/08/21 04:40 Sodium Level 139 mmol/L (136-145) Potassium Level 3.2 mmol/L (3.5-5.1) Chloride Level 103 mmol/L (98-107) Carbon Dioxide Level 30 mmol/L (21-32) Anion Gap 6 (6-14) Blood Urea Nitrogen 17 mg/dL (8-26) Creatinine 1.0 mg/dL (0.7-1.3) Estimated GFR (Cockcroft-Gault) 81.9 Glucose Level 84 mg/dL (70-99) Calcium Level 8.6 mg/dL (8.5-10.1) Microbiology 07/04/21 Urine Culture - Final, Complete Escherichia Coli 07/04/21 Blood Culture - Preliminary, Resulted NO GROWTH AFTER 4 DAYS Medications Current Medications Acetylcysteine 15 gm/Dextrose 275 ml @ 200 mls/hr 1X ONCE IV Last administered on 06/30/21at 03:52; Start 06/30/21 at 04:00; Stop 06/30/21 at 05:22; Status DC Sodium Chloride 1,000 ml @ 1,000 mls/hr Q1H IV ; Start 06/30/21 at 04:00; Stop 06/30/21 at 04:59; Status DC Rocuronium [place] (Zemuron) 100 mg 1X ONCE IV Last administered on 06/30/21at 04:30; Start 06/30/21 at 04:30; Stop 06/30/21 at 04:31; Status DC Etomidate (Amidate) 30 mg 1X ONCE IV Last administered on 06/30/21at 04:30; Start 06/30/21 at 04:30; Stop 06/30/21 at 04:31; Status DC Propofol (Diprivan) 200 mg 1X ONCE IV ; Start 06/30/21 at 04:30; Stop 06/30/21 at 04:31; Status DC Fentanyl Citrate (Fentanyl 2ml Vial) 100 mcg 1X ONCE IVP ; Start 06/30/21 at 04:30; Stop 06/30/21 at 04:31; Status DC Propofol 100 ml @ 3.135 mls/ hr CONT PRN IV PER PROTOCOL Last administered on 07/03/21at 06:42; Start 06/30/21 at 04:30; Stop 07/03/21 at 12:10; Status DC Acetylcysteine 10 gm/Dextrose 1,050 ml @ 65.625 mls/ hr 1X ONCE IV Last admi nistered on 06/30/21at 05:22; Start 06/30/21 at 05:30; Stop 06/30/21 at 21:29; Status DC Sodium Bicarbonate (Sodium Bicarb Adult 8.4% Syr) 50 meq 1X ONCE IV Last administered on 06/30/21at 09:43; Start 06/30/21 at 06:00; Stop 06/30/21 at 06:01; Status DC Etomidate (Amidate) 20 mg STK-MED ONCE IV ; Start 06/30/21 at 04:30; Stop 06/30/21 at 08:42; Status DC Rocuronium [place] (Zemuron) 50 mg STK-MED ONCE .ROUTE ; Start 06/30/21 at 04:30; Stop 06/30/21 at 08:42; Status DC Fomepizole 1.5 gm/ Sodium Chloride 101.5 ml @ 203 mls/hr 1X ONCE IV Last administered on 06/30/21at 09:44; Start 06/30/21 at 10:00; Stop 06/30/21 at 10:29; Status DC Sodium Bicarbonate (Sodium Bicarb Adult 8.4% Syr) 100 meq 1X ONCE IV ; Start 06/30/21 at 09:30; Stop 06/30/21 at 09:31; Status UNV Sodium Bicarbonate (Sodium Bicarb Adult 8.4% Syr) 50 meq 1X ONCE IV Last administered on 06/30/21at 09:44; Start 06/30/21 at 09:45; Stop 06/30/21 at 09:46; Status DC Acetylcysteine 12 gm/Dextrose 1,060 ml @ 110 mls/hr Q10H IV Last administered on 07/02/21at 00:35; Start 06/30/21 at 16:00; Stop 07/02/21 at 12:00; Status DC Fomepizole 1 gm/ Sodium Chloride 101 ml @ 202 mls/hr Q12HR IV Last administered on 07/02/21at 09:34; Start 06/30/21 at 22:00; Stop 07/02/21 at 09:30; Status DC Ondansetron HCl (Zofran) 4 mg PRN Q4HRS PRN IVP NAUSEA/VOMITING Last administered on 07/06/21at 17:35; Start 07/01/21 at 07:15 Glycerin/ Hypromellose/ Polyethylene (Artificial Tears) 1 drop PRN Q15MIN PRN OU DRY EYE Last administered on 07/01/21at 08:44; Start 07/01/21 at 07:15; Stop 07/03/21 at 12:10; Status DC Pantoprazole Sodium (PROTONIX VIAL for IV PUSH) 40 mg DAILYAC IVP Last administ ered on 07/06/21at 05:48; Start 07/01/21 at 07:30; Stop 07/06/21 at 10:01; Status DC Heparin Sodium (Porcine) (Heparin Sodium) 5,000 unit Q8HRS SQ Last administered on 07/08/21at 05:58; Start 07/01/21 at 14:00 Sodium Bicarbonate 50 meq/Dextrose 1,050 ml @ 125 mls/hr Q8H24M IV Last administered on 07/02/21at 00:35; Start 07/01/21 at 08:00; Stop 07/02/21 at 08:30; Status DC Dextrose/Sodium Chloride 1,000 ml @ 75 mls/hr [id number] IV ; Start 07/02/21 at 08:30; Stop 07/03/21 at 12:05; Status DC Sodium Chloride 1,000 ml @ 75 mls/hr [id number] IV Last administered on 07/04/21at 00:58; Start 07/02/21 at 09:15; Stop 07/04/21 at 14:34; Status DC Potassium Bicarbonate (Potassium Effervescent Tablet) 40 meq 1X ONCE PEG Last administered on 07/03/21at 09:13; Start 07/03/21 at 08:30; Stop 07/03/21 at 08:31; Status DC Albuterol/ Ipratropium (Duoneb) 3 ml Q4HRS W/A NEB Last administered on 07/03/21at 21:30; Start 07/03/21 at 22:00; Stop 07/03/21 at 21:53; Status DC Albuterol Sulfate (Ventolin Neb Soln) 2.5 mg PRN Q4HRS PRN NEB SHORTNESS OF BREATH; Start 07/03/21 at 22:00 Aspirin (Aspirin Chewable) 81 mg 1X ONCE PO Last administered on 07/04/21at 05: 42; Start 07/04/21 at 04:45; Stop 07/04/21 at 04:46; Status DC Aspirin (Melia Aspirin) 325 mg PRN BID PRN PO MILD PAIN / TEMP > 100.3'F Last administered on 07/05/21at 16:11; Start 07/04/21 at 09:00 Meropenem 500 mg/ Sodium Chloride 50 ml @ 100 mls/hr Q6HRS IV Last administered on 07/07/21at 12:23; Start 07/04/21 at 12:00; Stop 07/07/21 at 14:47; Status DC Daptomycin 500 mg/ Sodium Chloride 50 ml @ 100 mls/hr Q24H IV Last administered on 07/05/21at 16:06; Start 07/04/21 at 16:00; Stop 07/06/21 at 14:30; Status DC Potassium Chloride/Water 100 ml @ 100 mls/hr 1X ONCE IV ; Start 07/05/21 at 09:30; Stop 07/05/21 at 09:32; Status DC Potassium Chloride/Water 100 ml @ 100 mls/hr Q1H IV Last administered on 07/05/21at 11:00; Start 07/05/21 at 10:00; Stop 07/05/21 at 11:59; Status DC Tramadol HCl (Ultram) 50 mg PRN Q6HRS PRN PO MODERATE PAIN, SEVERE PAIN Last administered on 07/08/21 07:33; Start 07/05/21 at 21:15 Pantoprazole Sodium (Protonix) 40 mg DAILYAC PO Last administered on 07/08/21 07:33; Start 07/07/21 at 07:30 Throat Lozenges (Cepacol Sore Throat Lozenge) 1 pau PRN Q2HRS PRN PO SORE THROAT Last administered on 07/07/21at 22:52; Start 07/06/21 at 23:30 Guaifenesin (MUCINEX ER with DM) 1 tab BID PO Last administered on 07/08/21 08:50; Start 07/07/21 at 12:00 Ceftriaxone Sodium (Rocephin) 2 gm Q24H IVP Last administered on 07/07/21 15:20; Start 07/07/21 at 15:00 Lactobacillus Rhamnosus (Culturelle) 1 cap BID PO Last administered on 07/08/21 08:50; Start 07/07/21 at 21:00 Active Scripts Active No Active Prescriptions or Reported Medications Vitals/I & O Vital Sign - Last 24 Hours 07/07/21 07/07/21 07/07/21 07/07/21 15:00 19:00 20:30 21:38 Temp 98.4 98.0 98.4 98.0 Pulse 101 93 Resp 18 18 B/P (MAP) 18/80 (60) 115/85 (95) Pulse Ox 95 96 96 O2 Delivery Room Air Room Air Room Air Room Air O2 Flow Rate 2.0 07/07/21 07/07/21 07/08/21 07/08/21 22:08 23:09 03:43 07:00 Temp 98.8 98.8 98.5 98.8 98.8 98.5 Pulse 86 79 98 Resp 18 18 20 B/P (MAP) 139/87 (104) 147/82 (103) 132/85 (101) Pulse Ox 96 95 96 98 O2 Delivery Room Air Room Air Room Air Room Air O2 Flow Rate 2.0 07/08/21 07/08/21 08:00 11:00 Temp 98.4 98.4 Pulse 89 Resp 20 B/P (MAP) 121/73 (89) Pulse Ox 95 O2 Delivery Room Air Room Air O2 Flow Rate 2.0 Problem List Problems Medical Problems: (1) Acetaminophen overdose Status: Acute Assessment Hepatitis- with resolved tylenol overdose, tolerating PO , stable for release. dispostion plans per primary Justicifation of Admission Dx: Justifications for Admission: Justification of Admission Dx: Yes KATIE SMALL MD July 08, 2021 13:07
[2021-07-08] MEDS: cefTRIAXone IV Push 2 GM VIAL. IVP SCH (14:09)
[2021-07-08] MEDS ORDERED: CEFDINIR 300 MG CAPSULE PO SCH (21:00)
--- NOTE | 2021-07-10 18:57 | PDOC3 ---
[facility]-Discharge Summary Date of Admission: Date of Admission: Jun 30, 2021 Date of Discharge: Date of Discharge: July 08, 2021 Admission Diagnosis: Admitting Diagnosis: acetaminophen o/d Consults: Consults: GI, ID, Renal Hospital Course: Hospital Course: johnathan: On IV antibiotics but continues to have fevers. Initial blood cultures negative. ID consulted continue IV antibiotics. Acute encephalopathy - metabolic, likely due to medication overdose, possibly also with amphetamine toxicity. Resolving Acetaminophen overdose -unclear if intentional or not. Status post NAC and fomepizole Chronic osteoarthritis pain -if acetaminophen negative and ibuprofen are given to the future would recommend to dose pill packs daily. Seizures - per senior care, resolved Respiratory failure -extubated 07/03/2021. TRISTIN - no renal dysfunction, likely vasomotor nephropathy. Will obtain non- contrast abdominal imaging to r/o obstructive uropathy vs medical renal disease Lactic acidosis - likely related to acetaminophen OD, will trend Amphetamine positive - unclear if intoxicated Borderline personality disorder -not on meds Hyperglycemia - A1c 5.5, no DM history hyponatremia - possibly hypervolemic FEN - NPO PPX - heparin FULL CODE Dispo - ICU cc time 33 min History of Present Illness History of Present Illness Mr Alarcon is a 40yo male w/ PMHx chronic osteoarthritis pain, seizure, borderline personality disorder who is an inmate brought from senior care for unresponsiveness and concern for overdose. History obtained from ED paperwork and from [place] [employer] officers. He was found on morning wellness check this morning prior to 0400 laying in a pile of vomit with suspicion patient had taken #420 of 325 mg of acetaminophen. He has been incarcerated since 2005 per corrections officers. Labs at 0449 NA 142, K3 point delayed, BUN 14 CR 1.5, anion gap 22, glucose 243, lactic acid 5.3, calcium 7.6, bilirubin 0.3, AST 23, ALT 45, alkaline phosphata se 52, albumin 3.4, acetaminophen level 383.8, salicylates 1.2, urine drug screen positive for amphetamines, urinalysis bland with glucosuria and ketonuria. Patient was notably somnolent, drooling with brown emesis, confused in ED, barley answering to his name, and was assessed as not protecting his airway ED physician elected to intubate patient. Chest radiograph with ET tube near ayanna gastric tube overlying gastric bubble below the diaphragm. No other abnormalities on CXR on my interpretation. Initial ABG 7.245/38.9/136.4 Repeat ABG 7.221/31.5/161 on AC mode 40 breaths/min per tidal volume 450 PEEP of 5 FiO2 40% 07/01: Seen on vent AC mode PEEP 5 FiO2 40%, ABG pH 7.29 this morning. Creatinine climbing to 3.5, urine output 5.7 L last 24 hours. ALT 85 now, INR 1.5. Acetaminophen level 50. CBC pending, CT abdomen/pelvis ordered. started on free water. 07/02: On vent AC mode PEEP 5 FiO2 40% with O2 saturations 90%. Creatinine still not improving. INR 1.4. Repeat morning labs pending acetaminophen level was 6.6 admit overnight planned continue Mucomyst until level is 0. Abdominal ultrasound with no renal disease or obstruction noted but diffuse hepatic steatosis noted. 07/03: WBC down to 15 NA 129, K3.2, CR improved to 1.8 albumin 2.8, INR 1.1, acetaminophen level was 0 as of 12:30 PM on 07/02/2021. Still seen on ventilator AC mode 40% FiO2 PEEP of 5 saturations 91%. Off Mucomyst. Discussed plan to extubate potentially today we will attempt vent wean. 07/04: Extubated on 07/03/2021 without event. Febrile up to 103 F overnight. Having some chills. Seen bedside in ICU with 2 corrections officers present. Creatinine to 1.5. Given his recent ibuprofen and acetaminophen overdose his only option for fever has been aspirin we will continue to do this as needed. Awaiting bedside swallow evaluation he is noted he is very hungry. 07/05 Evaluated examined at bedside. Still febrile overnight. Cultures repeated today. Continue IV antibiotics per infectious disease team. Reporting some headache CT scan ordered. Otherwise continuing current. Discussed with bedside RN. 5/3 Patient evaluated examined at bedside. No further fevers. Continue current antibiotics. Consult and recommendations reviewed. Urine returned positive for E. coli today. Continue current antibiotics. May be discharged before the weekend. Discussed with bedside RN. 5/4 Evaluated examined at bedside. Still afebrile. Continue current antibiotics. If able to switch to oral antibiotic at any point he can likely discharge back to senior care. Otherwise continued current. Agreeable to plan. Evaluate examined at bedside. Switch to oral antibiotics on discharge. Abdoulaye mmendations of consultants reviewed. Discharged back to correctional facility today. greater than 30-minute spent on this discharge Disposition: Disposition/Orders: Other Activity: Activity: Resume previous activity Diet: Diet: Regular Medications: Home Meds No Active Prescriptions or Reported Meds No Active Prescriptions or Reported Meds Justicifation of Admission Dx: Justifications for Admission: Justification of Admission Dx: Yes PILAR PAREKH MD July 10, 2021 18:56
[2021-07-14 17:21] LABS: BASE EXCESS ABG 25 mmol/L (-3-3); HCO3 ABG 25 mmol/L (21-28); PCO2 ABG 40 mmHg (35-46); PO2 ABG 123 mmHg (75-108); SAT O2 ABG 98 % (92-99)
[2021-07-14 17:23] LABS: FIO2 ABG 40% VENT
== END 2021-07-08 16:16 | DRG 917 ==
LOC: EEVIPCON 03:18 → ER 03:18 → EEVIPCON 05:22 → 1 WEST ICU 05:22 → ER 07:15 → 5 NORTH 07-04 22:30
PROVIDERS: ADMIT Internal Medicine; ATTEND Internal Medicine
PROC: 5A1945Z Respiratory Ventilation, 24-96 Consecutive Hours (ICD-10-PCS; principal; 2021-06-30)
PROC: 0BH17EZ Insertion of Endotracheal Airway into Trachea, Via Natural or Artificial Opening (ICD-10-PCS; 2021-06-30)
DX: T39.1X1A Poisoning by 4-Aminophenol derivatives, accidental (unintentional), initial encounter (principal); A41.9 Sepsis, unspecified organism; N17.0 Acute kidney failure with tubular necrosis; J96.01 Acute respiratory failure with hypoxia; G92.8 Other toxic encephalopathy; E87.2 Acidosis; N39.0 Urinary tract infection, site not specified; E87.1 Hypo-osmolality and hyponatremia; E87.6 Hypokalemia; B96.20 Unspecified Escherichia coli [E. coli] as the cause of diseases classified elsewhere; F60.3 Borderline personality disorder; G40.909 Epilepsy, unspecified, not intractable, without status epilepticus; G89.29 Other chronic pain; J32.3 Chronic sphenoidal sinusitis; K75.9 Inflammatory liver disease, unspecified; K76.0 Fatty (change of) liver, not elsewhere classified; M19.90 Unspecified osteoarthritis, unspecified site; Z20.822 Contact with and (suspected) exposure to COVID-19; Z86.16 Personal history of COVID-19; Y92.89 Other specified places as the place of occurrence of the external cause; R73.9 Hyperglycemia, unspecified
CPT/HCPCS: 31500; 36415; 36556; 36600; 51702; 51798; 70450; 71045; 76700; 80048; 80053; 80076; 80307; 80329; 81001; 82550; 82805; 83036; 83605; 85007; 85025; 85610; 85730; 87040; 87077; 87086; 87186; 87428; 93005; 94002; 94003; 94640; 96365; 96366; 96375; 99292; C9113; G0480; J0132; J0696; J0878; J1451; J1644; J2185; J2405; J2704; J3480; J3490; J7030; J7060; U0003; 99291-25; G0378